=== PATIENT | female | born 1980 | race African-American/Black ===

== ENCOUNTER 2022-10-24 20:11 | Inpatient (IN) | payer MEDICAID, OTHER ==
[~2022-10-24] VITALS: Ht 160 cm; Wt 72.2 kg
[2022-10-24 20:51] LABS: Basophils # (auto) 0.1 10 ^3/uL (0-0.2); Eosinophils # (auto) 0.1 10 ^3/uL (0-0.8); Hemoglobin 10.6 g/dL (12.2-16.2); Monocytes # (auto) 0.3 10 ^3/uL (0-1.3)
[2022-10-24 20:53] LABS: Basophils % (auto) 1.3 % (0.0-2.0); Eosinophils % (auto) 0.8 % (0.0-7.0); Hematocrit 32.7 % (36.0-46.0); Lymphocytes # (auto) 2.8 10 ^3/uL (0.4-5.4); Lymphocytes % (auto) 37.6 % (10.0-50.0); Mean Corpuscular Hemoglobin 26.4 pg (28.0-32.0); Mean Corpuscular Hgb Conc. 32.3 g/dL (32.0-36.0); Mean Corpuscular Volume 81.6 fL (80.0-100.0); Monocytes % (auto) 4.2 % (0.0-12.0); Neutrophils # (auto) 4.1 10 ^3/uL (1.6-8.6); Neutrophils % (auto) 56.1 % (37.0-80.0); Nucleated Red Blood Cells % 0.7 %; White Blood Cell 7.3 10^3/uL (4.4-10.8)
[2022-10-24 21:05] LABS: INR 1.26 (0.9-1.15); Partial Thromboplastin Time 25.6 sec (24.6-33.4)
[2022-10-24 21:06] LABS: Albumin 3.8 g/dL (3.4-5.0); BUN/Creatinine Ratio 16.7; Calcium 8.9 mg/dL (8.5-10.1); Magnesium 2.2 mg/dL (1.6-2.6)
[2022-10-24 21:09] LABS: Bilirubin, Total 1.7 mg/dL (0.2-1.0); Total Protein 7.9 g/dL (6.4-8.2)
[2022-10-24 21:30] LABS: Urine Bacteria NONE SEEN /hpf (None Seen); Urine Blood Negative /uL (Negative); Urine Hyaline Cast MOD /lpf (0 - 2); Urine Mucus FEW (None Seen); Urine Specific Gravity 1.021 (1.001-1.035); Urine WBC 1 /hpf (0 - 5)
[2022-10-24 21:33] LABS: Red Cell Distribution Width 20.3 % (11.8-14.3)
[2022-10-24] MEDS ORDERED: ASPirin 325 MG TAB PO ONE (22:45)
[2022-10-24] MEDS ORDERED: HEPARIN SODIUM (PORCINE) 5000 UNITS/ML 1ML VIAL IV ONE (22:45)
[2022-10-24] MEDS ORDERED: HEPARIN DRIP/D5W 100UNITS/ML 250 ML IV SCH (22:45)
[2022-10-24] MEDS ORDERED: ONDANSETRON HCL 4 MG/2 ML VIAL IV ONE (23:15)
[2022-10-24] MEDS ORDERED: FUROSEMIDE 40 MG/4 ML VIAL IV ONE (23:45)
[2022-10-24] MEDS ORDERED: ONDANSETRON HCL 4 MG/2 ML VIAL IV PRN (23:45)
[2022-10-24] MEDS ORDERED: NITROGLYCERIN 0.4 MG SL TAB SL PRN (23:45)
[2022-10-24] MEDS ORDERED: ACETAMINOPHEN 325 MG TAB PO PRN (23:45)
[2022-10-24] MEDS ORDERED: MORPHINE SULFATE INJ 2 MG/ml SYRG IV PRN (23:45)
[2022-10-24] MEDS ORDERED: AZITHROMYCIN 500MG/ 250ML 250 ML IV ONE (23:45)
[2022-10-24] MEDS ORDERED: DOCUSATE SOD 100 MG CAP PO PRN (23:45)
[2022-10-25] MEDS: MORPHINE SULFATE INJ 2 MG/ml SYRG IV PRN ×2 (00:24→21:48)
[2022-10-25 04:57] LABS: Basophils # (auto) 0.1 10 ^3/uL (0-0.2); Basophils % (auto) 1.3 % (0.0-2.0); Eosinophils # (auto) 0.1 10 ^3/uL (0-0.8); Eosinophils % (auto) 1.5 % (0.0-7.0); Hematocrit 31.4 % (36.0-46.0); Hemoglobin 9.9 g/dL (12.2-16.2); Lymphocytes # (auto) 3.3 10 ^3/uL (0.4-5.4); Lymphocytes % (auto) 46.7 % (10.0-50.0); Mean Corpuscular Hemoglobin 25.7 pg (28.0-32.0); Mean Corpuscular Hgb Conc. 31.5 g/dL (32.0-36.0); Mean Corpuscular Volume 81.6 fL (80.0-100.0); Monocytes # (auto) 0.2 10 ^3/uL (0-1.3); Monocytes % (auto) 3.1 % (0.0-12.0); Neutrophils # (auto) 3.3 10 ^3/uL (1.6-8.6); Neutrophils % (auto) 47.4 % (37.0-80.0); Nucleated Red Blood Cells % 0.7 %; Red Blood Cells 3.85 10^6/uL (4.0-5.20); White Blood Cell 7.1 10^3/uL (4.4-10.8)
[2022-10-25 04:58] LABS: Red Cell Distribution Width 20.2 % (11.8-14.3)
[2022-10-25 05:05] LABS: Albumin 3.4 g/dL (3.4-5.0); Calcium 8.7 mg/dL (8.5-10.1); Potassium 3.9 mmol/L (3.5-5.1)
[2022-10-25 05:08] LABS: Bilirubin, Total 1.7 mg/dL (0.2-1.0); Total Protein 7.1 g/dL (6.4-8.2)
[2022-10-25 05:12] LABS: INR 1.29 (0.9-1.15); Partial Thromboplastin Time 38.2 sec (24.6-33.4)
[2022-10-25] MEDS: SODIUM CHLOR 0.9% PF (SALINE LOCK) 10ML VIAL/SYR IV SCH ×3 (06:09→22:33)
[2022-10-25] MEDS: ASPirin 81 mg TAB PO SCH (10:29)
[2022-10-25] MEDS: CARVEDILOL 3.125 MG TAB PO SCH ×2 (10:29→22:00)
[2022-10-25] MEDS: FAMOTIDINE (10MG/ML) 2ML VL IV SCH ×2 (10:29→22:33)
[2022-10-25] MEDS: HYDROcodone-ACET 5/325MG TAB PO PRN (10:39)
[2022-10-25] MEDS ORDERED: APIXABAN 5 MG TAB PO ONE (11:00)
[2022-10-25] MEDS: FUROSEMIDE 40 MG/4 ML VIAL IV SCH (11:00)
[2022-10-25] MEDS ORDERED: DOBUTamine 1000MCG/ML 250 ML IV SCH (11:00)
[2022-10-25 13:26] LABS: Cholesterol 124 mg/dL (< 200)
[2022-10-25 13:28] LABS: HDL Cholesterol 24 mg/dL (40-59); LDL Cholesterol 98 mg/dL (< 100); Triglycerides 77 mg/dL (< 150)
[2022-10-25] MEDS ORDERED: PHENYLEPHRINE IV 250 ML IV SCH (17:45)
[2022-10-25] MEDS ORDERED: AZITHROMYCIN 500MG/ 250ML 250 ML IV SCH (21:00)
[2022-10-25] MEDS ORDERED: diphenhdrAMINE HCL 50 MG/1 ML VL IV ONE (22:00)
[2022-10-25] MEDS: SACUBITRIL-VALSARTAN 24mg/26mg TAB PO SCH (22:35)
[2022-10-25] MEDS: APIXABAN 5 MG TAB PO SCH (22:56)
[2022-10-26] MEDS: SODIUM CHLOR 0.9% PF (SALINE LOCK) 10ML VIAL/SYR IV SCH ×3 (06:16→21:34)
[2022-10-26] MEDS: EMPAGLIFLOZIN 10 MG TAB PO SCH (06:26)
[2022-10-26 08:04] LABS: Albumin 3.1 g/dL (3.4-5.0); Calcium 8.2 mg/dL (8.5-10.1); Potassium 3.9 mmol/L (3.5-5.1)
[2022-10-26 08:04] LABS: Basophils # (auto) 0.1 10 ^3/uL (0-0.2); Eosinophils # (auto) 0.1 10 ^3/uL (0-0.8); Eosinophils % (auto) 1.8 % (0.0-7.0); Monocytes # (auto) 0.3 10 ^3/uL (0-1.3); Nucleated Red Blood Cells % 0.3 %
[2022-10-26 08:06] LABS: Basophils % (auto) 0.8 % (0.0-2.0); Hematocrit 29.4 % (36.0-46.0); Hemoglobin 9.5 g/dL (12.2-16.2); Mean Corpuscular Hemoglobin 26.2 pg (28.0-32.0); Mean Corpuscular Hgb Conc. 32.2 g/dL (32.0-36.0); Mean Corpuscular Volume 81.4 fL (80.0-100.0); Neutrophils # (auto) 4.4 10 ^3/uL (1.6-8.6); Neutrophils % (auto) 64.4 % (37.0-80.0); Red Blood Cells 3.61 10^6/uL (4.0-5.20); White Blood Cell 6.8 10^3/uL (4.4-10.8)
[2022-10-26 08:07] LABS: BUN/Creatinine Ratio 20.6; Total Protein 6.6 g/dL (6.4-8.2)
[2022-10-26 08:14] LABS: Red Cell Distribution Width 20.2 % (11.8-14.3)
[2022-10-26 08:54] LABS: Alcohol, Urine < 3.0 mg/dL (0-10); Barbiturate Scree,Urine NEGATIVE (NEGATIVE); Cannabinoid Screen, Urine NEGATIVE (NEGATIVE); Cocaine Screen, Urine NEGATIVE (NEGATIVE); Opiate Scree,Urine POSITIVE (NEGATIVE)
[2022-10-26 09:02] LABS: Amphetamine Screen, Urine NEGATIVE (NEGATIVE); Benzodiazephine Screen, Urine NEGATIVE (NEGATIVE); Phencyclidine Screen, Urine NEGATIVE (NEGATIVE)
[2022-10-26] MEDS: HYDROcodone-ACET 5/325MG TAB PO PRN (10:20)
[2022-10-26] MEDS: ASPirin 81 mg TAB PO SCH (10:21)
[2022-10-26] MEDS: CARVEDILOL 3.125 MG TAB PO SCH ×2 (10:21→21:33)
[2022-10-26] MEDS: APIXABAN 5 MG TAB PO SCH ×2 (10:21→21:33)
[2022-10-26] MEDS: SACUBITRIL-VALSARTAN 24mg/26mg TAB PO SCH ×2 (10:21→21:34)
[2022-10-26] MEDS: FUROSEMIDE 40 MG/4 ML VIAL IV SCH (10:22)
[2022-10-26] MEDS: levoFLOXacin 250MG 50 ML IV SCH ×2 (10:23→11:46)
[2022-10-26] MEDS: FAMOTIDINE (10MG/ML) 2ML VL IV SCH (10:24)
[2022-10-26] MEDS: DOBUTamine 1000MCG/ML 250 ML IV SCH (11:15)
[2022-10-26] MEDS ORDERED: BUME1TAB3 PO (12:28)
[2022-10-26] MEDS ORDERED: DAPA1TAB4 PO (12:28)
[2022-10-26] MEDS ORDERED: POTA10TA32 PO (12:28)
[2022-10-26] MEDS ORDERED: APIX5TAB PO (12:28)
[2022-10-26] MEDS ORDERED: METO25TA93 PO (12:28)
[2022-10-26] MEDS ORDERED: HYDR25TA87 PO (12:28)
[2022-10-26] MEDS ORDERED: IVAB1.7T PO (12:28)
[2022-10-26] MEDS ORDERED: METH500T22 PO (12:28)
[2022-10-26 13:00] VITALS: BP 91/68
[2022-10-26] MEDS ORDERED: ACET-1156 PO (16:58)
[2022-10-26] MEDS ORDERED: HYDR-4902 PO (16:58)
[2022-10-26] MEDS ORDERED: ALBUAER3 IN (16:58)
[2022-10-26 17:00] VITALS: BP 82/49
[2022-10-26 22:00] VITALS: BP 102/73
[2022-10-27 05:00] VITALS: BP 104/68
[2022-10-27] MEDS: EMPAGLIFLOZIN 10 MG TAB PO SCH (06:13)
[2022-10-27] MEDS: SODIUM CHLOR 0.9% PF (SALINE LOCK) 10ML VIAL/SYR IV SCH ×3 (06:15→21:29)
[2022-10-27 09:00] VITALS: BP 109/81
[2022-10-27] MEDS: ASPirin 81 mg TAB PO SCH (09:31)
[2022-10-27] MEDS: CARVEDILOL 3.125 MG TAB PO SCH ×2 (09:32→21:28)
[2022-10-27] MEDS: APIXABAN 5 MG TAB PO SCH ×2 (09:35→21:28)
[2022-10-27] MEDS: FAMOTIDINE (10MG/ML) 2ML VL IV SCH (09:36)
[2022-10-27] MEDS: levoFLOXacin 250MG 50 ML IV SCH (09:37)
[2022-10-27] MEDS: FUROSEMIDE 40 MG/4 ML VIAL IV SCH (09:38)
[2022-10-27] MEDS: SACUBITRIL-VALSARTAN 24mg/26mg TAB PO SCH ×2 (10:24→21:27)
[2022-10-27] MEDS: MORPHINE SULFATE INJ 2 MG/ml SYRG IV PRN (11:58)
[2022-10-27] MEDS: DOBUTamine 1000MCG/ML 250 ML IV SCH (12:00)
[2022-10-27 13:00] VITALS: BP_SYST 103; BP_SYST 110; BP_DIAS 77; BP_DIAS 79
[2022-10-27 17:12] VITALS: BP 101/73
[2022-10-27 22:00] VITALS: BP 108/71
[2022-10-28] MEDS: MORPHINE SULFATE INJ 2 MG/ml SYRG IV PRN ×3 (00:54→22:47)
[2022-10-28 05:00] VITALS: BP 110/77
[2022-10-28] MEDS: SODIUM CHLOR 0.9% PF (SALINE LOCK) 10ML VIAL/SYR IV SCH ×3 (05:59→22:00)
[2022-10-28] MEDS: EMPAGLIFLOZIN 10 MG TAB PO SCH (06:00)
[2022-10-28 08:00] VITALS: BP 123/82
[2022-10-28] MEDS: ASPirin 81 mg TAB PO SCH (09:21)
[2022-10-28] MEDS: APIXABAN 5 MG TAB PO SCH ×2 (09:22→22:06)
[2022-10-28] MEDS: CARVEDILOL 3.125 MG TAB PO SCH ×2 (09:22→22:00)
[2022-10-28] MEDS: FAMOTIDINE (10MG/ML) 2ML VL IV SCH (09:22)
[2022-10-28] MEDS: levoFLOXacin 250MG 50 ML IV SCH (09:23)
[2022-10-28] MEDS: SACUBITRIL-VALSARTAN 24mg/26mg TAB PO SCH ×2 (09:26→22:00)
[2022-10-28] MEDS: FUROSEMIDE 40 MG/4 ML VIAL IV SCH (10:00)
[2022-10-28 12:00] VITALS: BP 100/63
[2022-10-28 16:00] VITALS: BP 101/57
[2022-10-28 20:00] VITALS: BP 102/71
[2022-10-28 22:00] VITALS: BP 102/71
[2022-10-29 05:00] VITALS: BP 99/77
[2022-10-29] MEDS: EMPAGLIFLOZIN 10 MG TAB PO SCH (06:28)
[2022-10-29] MEDS: SODIUM CHLOR 0.9% PF (SALINE LOCK) 10ML VIAL/SYR IV SCH (06:29)
[2022-10-29 09:00] VITALS: BP 104/74
[2022-10-29] MEDS: levoFLOXacin 250MG 50 ML IV SCH (09:16)
[2022-10-29] MEDS: ASPirin 81 mg TAB PO SCH (09:17)
[2022-10-29] MEDS: CARVEDILOL 3.125 MG TAB PO SCH (09:18)
[2022-10-29] MEDS: APIXABAN 5 MG TAB PO SCH (09:19)
[2022-10-29] MEDS: MORPHINE SULFATE INJ 2 MG/ml SYRG IV PRN (09:42)
[2022-10-29] MEDS: FUROSEMIDE 40 MG/4 ML VIAL IV SCH (09:46)
[2022-10-29] MEDS ORDERED: SACUBITRIL-VALSARTAN 24mg/26mg TAB PO SCH (10:00)
[2022-10-29 12:50] VITALS: BP 99/69
== END 2022-10-29 13:00 | DRG 194 ==
LOC: ER 20:11 → TELE 23:43 → TELE-CENTR 10-26 11:00
PROVIDERS: ADMIT Nurse Practitioner Family; ATTEND Family Medicine
DX: I50.43 Acute on chronic combined systolic (congestive) and diastolic (congestive) heart failure (principal); I21.A1 Myocardial infarction type 2; N17.9 Acute kidney failure, unspecified; J18.9 Pneumonia, unspecified organism; D63.8 Anemia in other chronic diseases classified elsewhere; I95.9 Hypotension, unspecified; I42.7 Cardiomyopathy due to drug and external agent; Z79.01 Long term (current) use of anticoagulants; F17.200 Nicotine dependence, unspecified, uncomplicated; Z20.822 Contact with and (suspected) exposure to COVID-19; F41.9 Anxiety disorder, unspecified; R73.03 Prediabetes; T50.995A Adverse effect of other drugs, medicaments and biological substances, initial encounter; R09.02 Hypoxemia; Z86.711 Personal history of pulmonary embolism; Z71.6 Tobacco abuse counseling; Z88.0 Allergy status to penicillin; Y92.89 Other specified places as the place of occurrence of the external cause
CPT/HCPCS: 36415; 71045; 80053; 80061; 80307; 81001; 83036; 83735; 83880; 84443; 84484; 85025; 85610; 85730; 87426; 93005; 93306; 96365; 96375; 97163; G0378; J2405; J3490

== ENCOUNTER 2023-04-26 16:00 | Inpatient (IN) | payer MEDICAID ==
[~2023-04-26] VITALS: Ht 160 cm; Wt 62.2 kg
[~2023-04-26 16:00] MED LIST: ACET-1881 PO; ALBUAER3 IN; APIX5TAB PO; BUME1TAB3 PO; DAPA1TAB4 PO; HYDR-4902 PO; HYDR25TA87 PO; IVAB1.7T PO; METH-1181 PO; METO25TA93 PO; POTA-228 PO
[2023-04-26] MEDS ORDERED: MORPHINE SULFATE INJ 2 MG/ml SYRG IV ONE (16:45)
[2023-04-26] MEDS ORDERED: ONDANSETRON HCL 4 MG/2 ML VIAL IV ONE (16:45)
[2023-04-26 16:53] VITALS: PULSE 107; RESP 41; O2SAT 100
[2023-04-26 17:14] LABS: Basophils # (auto) 0.1 10 ^3/uL (0-0.2); Basophils % (auto) 1.1 % (0.0-2.0); Eosinophils # (auto) 0 10 ^3/uL (0-0.8); Eosinophils % (auto) 0.2 % (0.0-7.0); Hematocrit 34.6 % (36.0-46.0); Hemoglobin 9.8 g/dL (12.2-16.2); Lymphocytes # (auto) 2.1 10 ^3/uL (0.4-5.4); Lymphocytes % (auto) 27.3 % (10.0-50.0); Mean Corpuscular Hemoglobin 25.2 pg (28.0-32.0); Mean Corpuscular Hgb Conc. 28.5 g/dL (32.0-36.0); Mean Corpuscular Volume 88.5 fL (80.0-100.0); Monocytes # (auto) 0.5 10 ^3/uL (0-1.3); Monocytes % (auto) 5.9 % (0.0-12.0); Neutrophils % (auto) 65.5 % (37.0-80.0); Nucleated Red Blood Cells % 1.2 %; Red Blood Cells 3.91 10^6/uL (4.0-5.20); White Blood Cell 7.7 10^3/uL (4.4-10.8)
[2023-04-26 17:16] LABS: Red Cell Distribution Width 23.3 % (11.8-14.3)
[2023-04-26 17:27] LABS: Albumin 3.2 g/dL (3.4-5.0); Anion Gap 20 (5-15); BUN/Creatinine Ratio 23.7 (10.0-20.0); Blood Urea Nitrogen 40 mg/dL (7-18); Calcium 8.3 mg/dL (8.5-10.1); Carbon Dioxide 15 mmol/L (21-32); Chloride 100 mmol/L (98-107); GFR African American 42 mL/min; GFR Non-African American 35 mL/min; Glucose 96 mg/dL (74-106); Potassium 4.1 mmol/L (3.5-5.1); Sodium 135 mmol/L (136-145)
[2023-04-26 17:29] LABS: Alanine Aminotransferase 19 U/L (13-56); Alkaline Phosphatase 125 U/L (45-117); Aspartate Aminotransferase 38 U/L (15-37); Bilirubin, Total 3.2 mg/dL (0.2-1.0); Total Protein 7.9 g/dL (6.4-8.2)
[2023-04-26 18:15] LABS: Urine Bacteria FEW /hpf (None Seen); Urine Blood Negative /uL (Negative); Urine Clarity CLOUDY (Clear); Urine Color Yellow (Yellow); Urine Hyaline Cast MOD /lpf (0 - 2); Urine Mucus FEW (None Seen); Urine Protein, UAD 1+ (Negative); Urine Specific Gravity 1.018 (1.001-1.035); Urine WBC 16 /hpf (0 - 5)
[2023-04-26 18:43] LABS: Anisocytosis Slight; Hypochromia Moderate; Large Platelets FEW; Platelet Estimate Adequate
[2023-04-26] MEDS ORDERED: NITROFURANTOIN 100 mg CAP PO ONE (19:15)
[2023-04-26] MEDS ORDERED: FUROSEMIDE 40 MG/4 ML VIAL IV ONE (19:15)
[2023-04-26 19:18] LABS: Lactic Acid w/Reflex 7.6 mmol/L (0.4-2.0)
[2023-04-26 19:20] LABS: INR 1.78 (0.9-1.15); Partial Thromboplastin Time 24.2 SEC (24.5-34.5)
[2023-04-26 19:30] VITALS: PULSE 103; RESP 27; O2SAT 100
[2023-04-26] MEDS ORDERED: IOHEXOL 350 MG/ML 100ML IJ ONE (20:13)
[2023-04-26] MEDS ORDERED: ACETAMINOPHEN 325 MG TAB PO PRN (21:00)
[2023-04-26] MEDS ORDERED: DOCUSATE SOD 100 MG CAP PO PRN (21:00)
[2023-04-26] MEDS ORDERED: DEXTROSE (50%) 50ML SYRG IV PRN (21:00)
[2023-04-26 21:03] VITALS: PULSE 104; RESP 37; O2SAT 91
[2023-04-26] MEDS: HYDROcodone-ACET 5/325MG TAB PO PRN (21:38)
[2023-04-26] MEDS: SODIUM CHLOR 0.9% PF (SALINE LOCK) 10ML VIAL/SYR IV SCH (22:08)
[2023-04-26] MEDS: ACCU-CHEK COMFORT CURVE STRIP VI SCH (22:38)
[2023-04-26] MEDS: APIXABAN 5 MG TAB PO SCH (22:47)
[2023-04-26] MEDS: FAMOTIDINE (10MG/ML) 2ML VL IV SCH (22:47)
[2023-04-26] MEDS: CARVEDILOL 3.125 MG TAB PO SCH ×2 (22:48→22:55)
[2023-04-26] MEDS: InsuLIN REG 1unit/0.01ml Soln (100units/ml) SC SCH (22:54)
[2023-04-26] MEDS: NITROFURANTOIN 100 mg CAP PO SCH (23:24)
[2023-04-26] MEDS ORDERED: MORPHINE SULFATE INJ 2 MG/ml SYRG IV PRN ×2 (23:30→23:45)
[2023-04-26] MEDS ORDERED: NITROGLYCERIN 0.4 MG SL TAB SL PRN (23:45)
[2023-04-26] MEDS: LACTULOSE 20Gm/30ML SOLN PO SCH (23:48)
[2023-04-27] MEDS: MORPHINE SULFATE INJ 2 MG/ml SYRG IV PRN ×4 (00:30→21:17)
[2023-04-27 02:11] LABS: Lactic Acid w/Reflex 2.5 mmol/L (0.4-2.0)
[2023-04-27] MEDS: SODIUM CHLOR 0.9% PF (SALINE LOCK) 10ML VIAL/SYR IV SCH ×3 (06:01→22:37)
[2023-04-27] MEDS: DOXYCYCLINE 100MG/250ML 250 ML IV SCH ×2 (06:01→18:15)
[2023-04-27] MEDS: LACTULOSE 20Gm/30ML SOLN PO SCH ×4 (06:01→22:48)
[2023-04-27 06:10] LABS: Basophils # (auto) 0.1 10 ^3/uL (0-0.2); Eosinophils # (auto) 0 10 ^3/uL (0-0.8); Hemoglobin 9.2 g/dL (12.2-16.2); Monocytes # (auto) 0.4 10 ^3/uL (0-1.3); Nucleated Red Blood Cells % 1.5 %
[2023-04-27 06:12] LABS: Eosinophils % (auto) 0.5 % (0.0-7.0); Hematocrit 29.8 % (36.0-46.0); Lymphocytes # (auto) 1.8 10 ^3/uL (0.4-5.4); Lymphocytes % (auto) 26.4 % (10.0-50.0); Mean Corpuscular Hemoglobin 24.6 pg (28.0-32.0); Mean Corpuscular Hgb Conc. 30.8 g/dL (32.0-36.0); Mean Corpuscular Volume 79.7 fL (80.0-100.0); Monocytes % (auto) 5.2 % (0.0-12.0); Neutrophils # (auto) 4.7 10 ^3/uL (1.6-8.6); Neutrophils % (auto) 66.9 % (37.0-80.0); Red Blood Cells 3.73 10^6/uL (4.0-5.20)
[2023-04-27 06:14] LABS: Red Cell Distribution Width 22.1 % (11.8-14.3)
[2023-04-27 06:15] LABS: Potassium 3.8 mmol/L (3.5-5.1)
[2023-04-27 06:21] LABS: Albumin 3.3 g/dL (3.4-5.0); BUN/Creatinine Ratio 25.1 (10.0-20.0); Bilirubin, Total 3.4 mg/dL (0.2-1.0); Calcium 8.6 mg/dL (8.5-10.1); Total Protein 7.7 g/dL (6.4-8.2)
[2023-04-27] MEDS: ACCU-CHEK COMFORT CURVE STRIP VI SCH ×4 (06:51→22:36)
[2023-04-27] MEDS: InsuLIN REG 1unit/0.01ml Soln (100units/ml) SC SCH ×4 (06:54→22:50)
[2023-04-27] MEDS: HYDROcodone-ACET 5/325MG TAB PO PRN (07:51)
[2023-04-27 08:00] VITALS: PULSE 96; RESP 18; O2SAT 96
[2023-04-27 08:20] LABS: Anisocytosis Slight; Hypochromia Slight; Platelet Estimate Adequate
[2023-04-27 08:23] LABS: Tear Drop Cells FEW
[2023-04-27 08:25] LABS: Stomatocytes Moderate
[2023-04-27] MEDS: CARVEDILOL 3.125 MG TAB PO SCH ×2 (10:00→22:45)
[2023-04-27] MEDS ORDERED: FUROSEMIDE 40 MG/4 ML VIAL IV SCH ×2 (10:00)
[2023-04-27] MEDS: APIXABAN 5 MG TAB PO SCH ×2 (10:24→22:38)
[2023-04-27] MEDS: FAMOTIDINE (10MG/ML) 2ML VL IV SCH ×2 (10:24→22:37)
[2023-04-27] MEDS: NITROFURANTOIN 100 mg CAP PO SCH ×2 (10:24→22:38)
[2023-04-27] MEDS: B-COMPLEX W/ C & FOLIC ACID(NEPHROVITE TAB) PO SCH (10:24)
[2023-04-27] MEDS: DOBUTamine 1000MCG/ML 250 ML IV SCH (10:41)
[2023-04-27] MEDS ORDERED: EMPA1TAB PO (11:04)
[2023-04-27] MEDS ORDERED: SACU1TAB PO (11:04)
[2023-04-27] MEDS ORDERED: CARV3.1240 PO (11:04)
[2023-04-27] MEDS ORDERED: metOLazone 5 MG TAB PO ONE ×2 (11:45→13:15)
[2023-04-27] MEDS: ONDANSETRON HCL 4 MG/2 ML VIAL IV PRN ×2 (11:46→21:13)
[2023-04-27] MEDS: FUROSEMIDE 40 MG/4 ML VIAL IV SCH ×2 (13:14→22:45)
[2023-04-27 14:10] LABS: Cholesterol 71 mg/dL (< 200); HDL Cholesterol 13 mg/dL (40-59); LDL Cholesterol 62 mg/dL (< 100); Triglycerides 76 mg/dL (< 150)
[2023-04-27 16:55] LABS: Alcohol, Urine < 3.0 mg/dL (0-10); Amphetamine Screen, Urine NEGATIVE (NEGATIVE); Barbiturate Scree,Urine NEGATIVE (NEGATIVE); Benzodiazephine Screen, Urine NEGATIVE (NEGATIVE); Cannabinoid Screen, Urine NEGATIVE (NEGATIVE); Cocaine Screen, Urine NEGATIVE (NEGATIVE); Opiate Scree,Urine POSITIVE (NEGATIVE)
[2023-04-27 16:56] LABS: Urine Protein/Creatinine Ratio 0.63
[2023-04-27 17:03] LABS: Phencyclidine Screen, Urine NEGATIVE (NEGATIVE)
[2023-04-27 19:40] VITALS: PULSE 92; RESP 18; O2SAT 98
[2023-04-27] MEDS ORDERED: SPIR25TA8 PO (22:08)
[2023-04-27] MEDS ORDERED: ONDA-188 PO (22:08)
[2023-04-27] MEDS ORDERED: FAMO-12 PO (22:08)
[2023-04-27 22:09] VITALS: PULSE 98; RESP 18; O2SAT 99
[2023-04-27] MEDS ORDERED: HYDR-4798 PO (22:09)
[2023-04-28] VITALS (7 sets, daily range): BP systolic 93–103; BP diastolic 61–78; PULSE 78–95; RESP 14–20; TEMP 97.5–98.6; O2SAT 98–100
[2023-04-28] MEDS: MORPHINE SULFATE INJ 2 MG/ml SYRG IV PRN ×2 (01:38→22:36)
[2023-04-28] MEDS: ONDANSETRON HCL 4 MG/2 ML VIAL IV PRN (01:38)
[2023-04-28] MEDS: DOXYCYCLINE 100MG/250ML 250 ML IV SCH ×2 (05:57→18:25)
[2023-04-28] MEDS: ACCU-CHEK COMFORT CURVE STRIP VI SCH (05:58)
[2023-04-28] MEDS: SODIUM CHLOR 0.9% PF (SALINE LOCK) 10ML VIAL/SYR IV SCH ×3 (05:58→22:14)
[2023-04-28] MEDS: LACTULOSE 20Gm/30ML SOLN PO SCH (05:58)
[2023-04-28] MEDS: InsuLIN REG 1unit/0.01ml Soln (100units/ml) SC SCH (06:21)
[2023-04-28 08:17] LABS: Basophils # (auto) 0.1 10 ^3/uL (0-0.2); Eosinophils # (auto) 0.1 10 ^3/uL (0-0.8)
[2023-04-28 08:19] LABS: Basophils % (auto) 1.2 % (0.0-2.0); Eosinophils % (auto) 0.9 % (0.0-7.0); Hematocrit 26.2 % (36.0-46.0); Hemoglobin 8.2 g/dL (12.2-16.2); Lymphocytes # (auto) 1.2 10 ^3/uL (0.4-5.4); Mean Corpuscular Hemoglobin 24.9 pg (28.0-32.0); Mean Corpuscular Hgb Conc. 31.1 g/dL (32.0-36.0); Mean Corpuscular Volume 79.9 fL (80.0-100.0); Monocytes # (auto) 0.4 10 ^3/uL (0-1.3); Monocytes % (auto) 5.4 % (0.0-12.0); Neutrophils % (auto) 74.5 % (37.0-80.0); Nucleated Red Blood Cells % 0.6 %; Red Blood Cells 3.28 10^6/uL (4.0-5.20); White Blood Cell 6.7 10^3/uL (4.4-10.8)
[2023-04-28 08:26] LABS: Red Cell Distribution Width 22.1 % (11.8-14.3)
[2023-04-28 08:41] LABS: Albumin 2.9 g/dL (3.4-5.0); Calcium 8.4 mg/dL (8.5-10.1)
[2023-04-28 08:45] LABS: BUN/Creatinine Ratio 23.8 (10.0-20.0); Bilirubin, Total 2.4 mg/dL (0.2-1.0)
[2023-04-28] MEDS ORDERED: POTASSIUM CHL 20 Meq TABLET PO ONE ×2 (09:15→13:15)
[2023-04-28] MEDS: NITROFURANTOIN 100 mg CAP PO SCH (09:33)
[2023-04-28] MEDS: APIXABAN 5 MG TAB PO SCH (09:34)
[2023-04-28] MEDS: PANTOPRAZOLE 40 MG/10 ML VIAL INJ IV SCH (09:34)
[2023-04-28] MEDS: B-COMPLEX W/ C & FOLIC ACID(NEPHROVITE TAB) PO SCH (09:34)
[2023-04-28] MEDS: FAMOTIDINE (10MG/ML) 2ML VL IV SCH (09:34)
[2023-04-28] MEDS: DOBUTamine 1000MCG/ML 250 ML IV SCH (09:42)
[2023-04-28] MEDS: CARVEDILOL 3.125 MG TAB PO SCH ×2 (10:00→22:12)
[2023-04-28] MEDS: FUROSEMIDE 40 MG/4 ML VIAL IV SCH ×2 (11:14→18:28)
[2023-04-28] MEDS: HYDROcodone-ACET 5/325MG TAB PO PRN (11:14)
[2023-04-28] MEDS ORDERED: SPIRONOLACTONE 25 MG TAB PO ONE (11:30)
[2023-04-28] MEDS ORDERED: metOLazone 5 MG TAB PO ONE (11:30)
[2023-04-28] MEDS ORDERED: POTASSIUM EFFERVESENT TAB 25 MEQ PO ONE (19:00)
[2023-04-29] VITALS (8 sets, daily range): BP systolic 91–147; BP diastolic 53–77; PULSE 77–100; RESP 14–21; TEMP 97.1–99; O2SAT 95–100
[2023-04-29] MEDS: MORPHINE SULFATE INJ 2 MG/ml SYRG IV PRN ×2 (03:44→23:03)
[2023-04-29] MEDS: FUROSEMIDE 40 MG/4 ML VIAL IV SCH ×2 (05:19→18:05)
[2023-04-29] MEDS: SODIUM CHLOR 0.9% PF (SALINE LOCK) 10ML VIAL/SYR IV SCH ×3 (05:19→23:04)
[2023-04-29] MEDS: DOXYCYCLINE 100MG/250ML 250 ML IV SCH ×2 (05:20→18:05)
[2023-04-29 06:32] LABS: Eosinophils # (auto) 0.1 10 ^3/uL (0-0.8); Eosinophils % (auto) 1.2 % (0.0-7.0); Hemoglobin 8.5 g/dL (12.2-16.2); Lymphocytes # (auto) 1.2 10 ^3/uL (0.4-5.4); White Blood Cell 6.2 10^3/uL (4.4-10.8)
[2023-04-29 06:33] LABS: Basophils # (auto) 0.1 10 ^3/uL (0-0.2); Basophils % (auto) 1.2 % (0.0-2.0); Hematocrit 26.8 % (36.0-46.0); Lymphocytes % (auto) 19.5 % (10.0-50.0); Mean Corpuscular Hemoglobin 25.2 pg (28.0-32.0); Mean Corpuscular Hgb Conc. 31.6 g/dL (32.0-36.0); Mean Corpuscular Volume 79.8 fL (80.0-100.0); Monocytes # (auto) 0.3 10 ^3/uL (0-1.3); Monocytes % (auto) 5.3 % (0.0-12.0); Neutrophils # (auto) 4.5 10 ^3/uL (1.6-8.6); Neutrophils % (auto) 72.8 % (37.0-80.0); Nucleated Red Blood Cells % 0.7 %; Red Blood Cells 3.36 10^6/uL (4.0-5.20)
[2023-04-29 07:32] LABS: Red Cell Distribution Width 22.2 % (11.8-14.3)
[2023-04-29 08:44] LABS: Potassium 3.5 mmol/L (3.5-5.1)
[2023-04-29 09:01] LABS: BUN/Creatinine Ratio 24.1 (10.0-20.0); Bilirubin, Total 2.2 mg/dL (0.2-1.0); Calcium 7.9 mg/dL (8.7-10.4); Total Protein 6.9 g/dL (6.4-8.2)
[2023-04-29] MEDS ORDERED: POTASSIUM EFFERVESENT TAB 25 MEQ PO ONE (09:45)
[2023-04-29] MEDS: PANTOPRAZOLE 40 MG/10 ML VIAL INJ IV SCH (09:59)
[2023-04-29] MEDS: CARVEDILOL 3.125 MG TAB PO SCH ×2 (09:59→23:04)
[2023-04-29] MEDS: B-COMPLEX W/ C & FOLIC ACID(NEPHROVITE TAB) PO SCH (09:59)
[2023-04-29] MEDS: HYDROcodone-ACET 5/325MG TAB PO PRN (10:13)
[2023-04-29] MEDS ORDERED: SPIRONOLACTONE 25 MG TAB PO ONE (10:45)
[2023-04-30] VITALS (7 sets, daily range): BP systolic 80–114; BP diastolic 53–65; PULSE 81–90; RESP 16–19; TEMP 97.3–97.8; O2SAT 96–100
[2023-04-30] MEDS: MORPHINE SULFATE INJ 2 MG/ml SYRG IV PRN (03:34)
[2023-04-30] MEDS: DOXYCYCLINE 100MG/250ML 250 ML IV SCH (05:27)
[2023-04-30] MEDS: FUROSEMIDE 40 MG/4 ML VIAL IV SCH (05:28)
[2023-04-30] MEDS: SODIUM CHLOR 0.9% PF (SALINE LOCK) 10ML VIAL/SYR IV SCH ×3 (05:29→22:20)
[2023-04-30 05:56] LABS: Mean Corpuscular Hgb Conc. 31.3 g/dL (32.0-36.0); Nucleated Red Blood Cells % 1.1 %
[2023-04-30 05:59] LABS: Basophils # (auto) 0.1 10 ^3/uL (0-0.2); Basophils % (auto) 1.1 % (0.0-2.0); Eosinophils # (auto) 0 10 ^3/uL (0-0.8); Eosinophils % (auto) 0.8 % (0.0-7.0); Hemoglobin 9.1 g/dL (12.2-16.2); Lymphocytes # (auto) 1.4 10 ^3/uL (0.4-5.4); Lymphocytes % (auto) 22.4 % (10.0-50.0); Mean Corpuscular Hemoglobin 24.8 pg (28.0-32.0); Mean Corpuscular Volume 79.1 fL (80.0-100.0); Monocytes # (auto) 0.3 10 ^3/uL (0-1.3); Monocytes % (auto) 5.6 % (0.0-12.0); Neutrophils # (auto) 4.2 10 ^3/uL (1.6-8.6); Neutrophils % (auto) 70.1 % (37.0-80.0); Red Blood Cells 3.67 10^6/uL (4.0-5.20); White Blood Cell 6.1 10^3/uL (4.4-10.8)
[2023-04-30 06:06] LABS: Red Cell Distribution Width 22.4 % (11.8-14.3)
[2023-04-30 06:28] LABS: Alanine Aminotransferase 15 U/L (7-40); Albumin 3.5 g/dL (3.2-4.8); Alkaline Phosphatase 129 U/L (46-116); Anion Gap 11.8 (5-15); Aspartate Aminotransferase 28 U/L (13-40); BUN/Creatinine Ratio 25.6 (10.0-20.0); Blood Urea Nitrogen 42 mg/dL (9-23); Calcium 8.8 mg/dL (8.7-10.4); Carbon Dioxide 28.2 mmol/L (20-30); Chloride 92 mmol/L (98-107); Glucose 93 mg/dL (74-106); Magnesium 1.9 mg/dL (1.6-2.6); Potassium 3.6 mmol/L (3.5-5.1); Sodium 132 mmol/L (136-145)
[2023-04-30 06:29] LABS: Bilirubin, Total 2.8 mg/dL (0.2-1.0); Total Protein 6.9 g/dL (5.7-8.2)
[2023-04-30] MEDS ORDERED: POTASSIUM CHL 20 Meq TABLET PO ONE (07:45)
[2023-04-30 07:50] LABS: INR 1.7 (0.9-1.15); Partial Thromboplastin Time 32.7 SEC (24.5-34.5); Prothrombin Time 17.2 sec (9.3-11.8)
[2023-04-30] MEDS: CARVEDILOL 3.125 MG TAB PO SCH (11:44)
[2023-04-30] MEDS: SPIRONOLACTONE 25 MG TAB PO SCH (11:44)
[2023-04-30] MEDS: B-COMPLEX W/ C & FOLIC ACID(NEPHROVITE TAB) PO SCH (11:44)
[2023-04-30] MEDS ORDERED: ALBUMIN 25% 50 ML IV ONE ×2 (11:45→20:00)
[2023-04-30] MEDS: HYDROcodone-ACET 5/325MG TAB PO PRN ×2 (12:24→19:05)
[2023-04-30] MEDS: DOXYCYCLINE 100 MG TAB/CAP PO SCH (22:33)
[2023-05-01] VITALS (7 sets, daily range): BP systolic 91–97; BP diastolic 65–73; PULSE 80–94; RESP 16–26; TEMP 97.5–97.8; O2SAT 94–98
[2023-05-01] MEDS: HYDROcodone-ACET 5/325MG TAB PO PRN ×3 (00:17→18:56)
[2023-05-01] MEDS: SODIUM CHLOR 0.9% PF (SALINE LOCK) 10ML VIAL/SYR IV SCH ×3 (06:00→21:36)
[2023-05-01] MEDS ORDERED: FUROSEMIDE 40 MG/4 ML VIAL IV SCH (07:00)
[2023-05-01 08:48] LABS: Basophils # (auto) 0.1 10 ^3/uL (0-0.2); Eosinophils # (auto) 0.1 10 ^3/uL (0-0.8); Hemoglobin 9.2 g/dL (12.2-16.2); Monocytes # (auto) 0.4 10 ^3/uL (0-1.3); Neutrophils # (auto) 3.7 10 ^3/uL (1.6-8.6)
[2023-05-01 08:50] LABS: Eosinophils % (auto) 1.2 % (0.0-7.0); Hematocrit 29.7 % (36.0-46.0); Lymphocytes # (auto) 1.6 10 ^3/uL (0.4-5.4); Lymphocytes % (auto) 27.5 % (10.0-50.0); Mean Corpuscular Hemoglobin 24.6 pg (28.0-32.0); Mean Corpuscular Hgb Conc. 30.9 g/dL (32.0-36.0); Mean Corpuscular Volume 79.6 fL (80.0-100.0); Monocytes % (auto) 7.4 % (0.0-12.0); Neutrophils % (auto) 62.9 % (37.0-80.0); Red Blood Cells 3.73 10^6/uL (4.0-5.20); Red Cell Distribution Width 22.6 % (11.8-14.3); White Blood Cell 5.9 10^3/uL (4.4-10.8)
[2023-05-01 09:37] LABS: Lactic Acid w/Reflex 2.8 mmol/L (0.4-2.0)
[2023-05-01 09:54] LABS: Alanine Aminotransferase 12 U/L (7-40); Albumin 3.6 g/dL (3.2-4.8); Alkaline Phosphatase 133 U/L (46-116); Anion Gap 11.4 (5-15); Aspartate Aminotransferase 25 U/L (13-40); BUN/Creatinine Ratio 21.3 (10.0-20.0); Bilirubin, Total 2.6 mg/dL (0.2-1.0); Blood Urea Nitrogen 37 mg/dL (9-23); Calcium 8.8 mg/dL (8.5-10.1); Carbon Dioxide 26.6 mmol/L (20-30); Chloride 93 mmol/L (98-107); Glucose 106 mg/dL (74-106); Magnesium 2.1 mg/dL (1.6-2.6); Potassium 3.7 mmol/L (3.5-5.1); Sodium 131 mmol/L (136-145); Total Protein 7.3 g/dL (5.7-8.2)
[2023-05-01] MEDS: SPIRONOLACTONE 25 MG TAB PO SCH (10:00)
[2023-05-01] MEDS: B-COMPLEX W/ C & FOLIC ACID(NEPHROVITE TAB) PO SCH (11:09)
[2023-05-01] MEDS: PANTOPRAZOLE 40 MG TAB PO SCH (11:09)
[2023-05-01] MEDS: DOXYCYCLINE 100 MG TAB/CAP PO SCH ×2 (11:09→21:36)
[2023-05-01] MEDS ORDERED: ALBUMIN 25% 50 ML IV ONE (15:00)
[2023-05-01 20:40] LABS: Body Fluid Polymorphonuclear 12 % (0-25); Body Fluid Red Blood Cells 2320 CUMM (0-2000); Body Fluid White Blood Cells 200 CUMM (0-200)
[2023-05-02] VITALS (9 sets, daily range): BP systolic 80–105; BP diastolic 57–70; PULSE 78–94; RESP 18–26; TEMP 97.4–97.9; O2SAT 93–100
[2023-05-02] MEDS: HYDROcodone-ACET 5/325MG TAB PO PRN ×3 (05:32→14:23)
[2023-05-02] MEDS: SODIUM CHLOR 0.9% PF (SALINE LOCK) 10ML VIAL/SYR IV SCH ×3 (05:58→22:09)
[2023-05-02 06:01] LABS: Chloride 93 mmol/L (98-107); Potassium 3.3 mmol/L (3.5-5.1); Sodium 132 mmol/L (136-145)
[2023-05-02 06:02] LABS: Calcium 8.8 mg/dL (8.7-10.4)
[2023-05-02 06:07] LABS: BUN/Creatinine Ratio 24.7 (10.0-20.0); Blood Urea Nitrogen 43 mg/dL (9-23); Glucose 95 mg/dL (74-106)
[2023-05-02] MEDS ORDERED: POTASSIUM EFFERVESENT TAB 25 MEQ PO ONE (07:00)
[2023-05-02] MEDS ORDERED: FUROSEMIDE 40 MG TAB PO SCH (10:00)
[2023-05-02] MEDS: B-COMPLEX W/ C & FOLIC ACID(NEPHROVITE TAB) PO SCH (11:12)
[2023-05-02] MEDS: DOXYCYCLINE 100 MG TAB/CAP PO SCH ×2 (11:12→22:07)
[2023-05-02] MEDS: PANTOPRAZOLE 40 MG TAB PO SCH (11:12)
[2023-05-02] MEDS: SPIRONOLACTONE 25 MG TAB PO SCH (14:23)
[2023-05-03 10:06] LABS: Protein, Body Fluid 3.9 g/dL (.)
== END 2023-05-02 22:30 | disposition hospice, home (50) ==
LOC: ER 16:00 → EDBD 16:00 → TELE 23:46 → TELE-WESTW 04-27 21:22
PROVIDERS: ADMIT Internal Medicine; ATTEND Student in an Organized Health Care Education/Training Program
PROC: 0W9G3ZZ Drainage of Peritoneal Cavity, Percutaneous Approach (ICD-10-PCS; principal; 2023-05-01)
DX: K74.60 Unspecified cirrhosis of liver (principal); N17.0 Acute kidney failure with tubular necrosis; J96.21 Acute and chronic respiratory failure with hypoxia; K76.7 Hepatorenal syndrome; E44.0 Moderate protein-calorie malnutrition; I50.23 Acute on chronic systolic (congestive) heart failure; D63.1 Anemia in chronic kidney disease; E87.1 Hypo-osmolality and hyponatremia; J15.6 Pneumonia due to other Gram-negative bacteria; I13.2 Hypertensive heart and chronic kidney disease with heart failure and with stage 5 chronic kidney disease, or end stage renal disease; E87.20 Acidosis, unspecified; I42.7 Cardiomyopathy due to drug and external agent; K72.90 Hepatic failure, unspecified without coma; N18.6 End stage renal disease; R18.8 Other ascites; I27.29 Other secondary pulmonary hypertension; R62.7 Adult failure to thrive; F32.A Depression, unspecified; I27.20 Pulmonary hypertension, unspecified; J98.11 Atelectasis; I50.82 Biventricular heart failure; E87.6 Hypokalemia; N39.0 Urinary tract infection, site not specified; T50.905A Adverse effect of unspecified drugs, medicaments and biological substances, initial encounter; F41.9 Anxiety disorder, unspecified; R79.89 Other specified abnormal findings of blood chemistry; E11.22 Type 2 diabetes mellitus with diabetic chronic kidney disease; Z68.27 Body mass index [BMI] 27.0-27.9, adult; Z79.4 Long term (current) use of insulin; Z79.899 Other long term (current) drug therapy; Z82.49 Family history of ischemic heart disease and other diseases of the circulatory system; Z83.3 Family history of diabetes mellitus; Z86.711 Personal history of pulmonary embolism; Z88.0 Allergy status to penicillin; Y92.9 Unspecified place or not applicable
CPT/HCPCS: 36415; 71045; 71275; 74176; 76705; 76775; 76942; 80048; 80053; 80061; 80307; 81001; 82140; 82570; 82962; 83036; 83605; 83735; 83880; 83986; 84132; 84156; 84300; 84443; 84484; 84702; 85025; 85379; 85610; 85730; 86803; 86850; 86900; 86901; 87040; 87086; 87205; 89051; 93005; 93306; 93970; 96374; 96375; 97163; C9113; G0378; J1815; J2405; J3490

== ENCOUNTER 2023-06-11 19:08 | Inpatient (IN) | payer MEDICAID ==
[~2023-06-11] VITALS: Ht 172.7 cm; Wt 63.3 kg
[~2023-06-11 19:08] MED LIST changes: +CARV3.1240 PO; +EMPA1TAB PO; +FAMO-12 PO; +HYDR-4798 PO; +ONDA-188 PO; +SACU1TAB PO; +SPIR25TA8 PO
[2023-06-11 20:03] VITALS: PULSE 94; RESP 14; O2SAT 95
[2023-06-11 20:51] LABS: Basophils # (auto) 0.1 10 ^3/uL (0-0.2); Eosinophils # (auto) 0 10 ^3/uL (0-0.8); Eosinophils % (auto) 0.4 % (0.0-7.0); Lymphocytes # (auto) 1.4 10 ^3/uL (0.4-5.4); Monocytes # (auto) 0.3 10 ^3/uL (0-1.3); Monocytes % (auto) 5.7 % (0.0-12.0); Neutrophils # (auto) 4.2 10 ^3/uL (1.6-8.6)
[2023-06-11 20:53] LABS: Basophils % (auto) 1.4 % (0.0-2.0); Hematocrit 33.8 % (36.0-46.0); Hemoglobin 10.2 g/dL (12.2-16.2); Lymphocytes % (auto) 22.8 % (10.0-50.0); Mean Corpuscular Hemoglobin 24.7 pg (28.0-32.0); Mean Corpuscular Hgb Conc. 30.1 g/dL (32.0-36.0); Neutrophils % (auto) 69.7 % (37.0-80.0); Red Blood Cells 4.12 10^6/uL (4.0-5.20)
[2023-06-11 21:05] LABS: INR 1.61 (0.9-1.15); Prothrombin Time 16.4 sec (9.3-11.8)
[2023-06-11 21:15] LABS: Alanine Aminotransferase 23 U/L (7-40); Albumin 3.9 g/dL (3.2-4.8); Alkaline Phosphatase 164 U/L (46-116); Anion Gap 10 (5-15); Aspartate Aminotransferase 36 U/L (13-40); BUN/Creatinine Ratio 12.1 (10.0-20.0); Bilirubin, Total 2.8 mg/dL (0.2-1.0); Blood Urea Nitrogen 15 mg/dL (9-23); Calcium 8.8 mg/dL (8.7-10.4); Carbon Dioxide 20 mmol/L (20-30); Chloride 107 mmol/L (98-107); Glucose 96 mg/dL (74-106); Potassium 4.5 mmol/L (3.5-5.1); Sodium 137 mmol/L (136-145)
[2023-06-11 21:16] LABS: Total Protein 7.8 g/dL (5.7-8.2)
[2023-06-11 21:21] LABS: Red Cell Distribution Width 22.4 % (11.8-14.3)
[2023-06-11] MEDS ORDERED: MORPHINE SULFATE 4 MG/ML SYR/VIAL IV ONE (21:30)
[2023-06-11] MEDS ORDERED: FUROSEMIDE 100 MG/10ML VIAL IV ONE (23:30)
[2023-06-12] VITALS (10 sets, daily range): BP systolic 88–106; BP diastolic 62–79; PULSE 79–106; RESP 15–22; TEMP 97.3–98.4; O2SAT 97–100
[2023-06-12] MEDS ORDERED: ALBUTEROL SULF 2.5 MG/0.5ML(0.5%) NEB SOLN NEB PRN (01:15)
[2023-06-12] MEDS ORDERED: MORPHINE SULFATE INJ 2 MG/ml SYRG IV PRN (01:15)
[2023-06-12] MEDS ORDERED: ONDANSETRON HCL 4 MG/2 ML VIAL IV PRN (01:15)
[2023-06-12] MEDS ORDERED: DEXTROSE (50%) 50ML SYRG IV PRN (01:15)
[2023-06-12] MEDS ORDERED: NITROGLYCERIN 0.4 MG SL TAB SL PRN (01:15)
[2023-06-12] MEDS ORDERED: FUROSEMIDE 20 MG/2 ML VIAL IV SCH (06:00)
[2023-06-12] MEDS: ACCU-CHEK COMFORT CURVE STRIP VI SCH ×4 (06:23→21:29)
[2023-06-12] MEDS: InsuLIN REG 1unit/0.01ml Soln (100units/ml) SC SCH ×4 (06:35→21:29)
[2023-06-12] MEDS: APIXABAN 5 MG TAB PO SCH ×2 (09:58→21:30)
[2023-06-12] MEDS: SACUBITRIL-VALSARTAN 24mg/26mg TAB PO SCH ×2 (09:58→21:30)
[2023-06-12] MEDS ORDERED: ASPirin 81 mg TAB PO SCH (10:00)
[2023-06-12] MEDS ORDERED: CARVEDILOL 3.125 MG TAB PO SCH (10:00)
[2023-06-12] MEDS ORDERED: SPIRONOLACTONE 25 MG TAB PO ONE (10:45)
[2023-06-12] MEDS: FUROSEMIDE 20 MG/2 ML VIAL IV SCH (19:53)
[2023-06-12] MEDS: HYDROcodone-ACET 5/325MG TAB PO PRN (20:07)
[2023-06-12] MEDS: METOPROLOL TARTRATE 25 MG TAB PO SCH (21:31)
[2023-06-13] VITALS (8 sets, daily range): BP systolic 92–103; BP diastolic 58–76; PULSE 63–89; RESP 16–20; TEMP 97.2–98.9; O2SAT 93–100
[2023-06-13] MEDS: EMPAGLIFLOZIN 10 MG TAB PO SCH (06:11)
[2023-06-13] MEDS: FUROSEMIDE 20 MG/2 ML VIAL IV SCH ×2 (06:20→17:54)
[2023-06-13] MEDS: InsuLIN REG 1unit/0.01ml Soln (100units/ml) SC SCH (06:20)
[2023-06-13] MEDS: ACCU-CHEK COMFORT CURVE STRIP VI SCH (06:22)
[2023-06-13 06:40] LABS: Basophils # (auto) 0.1 10 ^3/uL (0-0.2); Eosinophils # (auto) 0.1 10 ^3/uL (0-0.8); Eosinophils % (auto) 1.6 % (0.0-7.0); Lymphocytes # (auto) 1.4 10 ^3/uL (0.4-5.4); Monocytes # (auto) 0.3 10 ^3/uL (0-1.3); Neutrophils % (auto) 62.8 % (37.0-80.0)
[2023-06-13 06:43] LABS: Basophils % (auto) 1.5 % (0.0-2.0); Hematocrit 30.6 % (36.0-46.0); Hemoglobin 9.6 g/dL (12.2-16.2); Lymphocytes % (auto) 27.8 % (10.0-50.0); Mean Corpuscular Hemoglobin 24.7 pg (28.0-32.0); Mean Corpuscular Hgb Conc. 31.2 g/dL (32.0-36.0); Mean Corpuscular Volume 79.2 fL (80.0-100.0); Monocytes % (auto) 6.3 % (0.0-12.0); Neutrophils # (auto) 3.1 10 ^3/uL (1.6-8.6); Nucleated Red Blood Cells % 0.7 %; Red Blood Cells 3.86 10^6/uL (4.0-5.20); White Blood Cell 4.9 10^3/uL (4.4-10.8)
[2023-06-13 06:57] LABS: Red Cell Distribution Width 21.8 % (11.8-14.3)
[2023-06-13 07:08] LABS: Alanine Aminotransferase 16 U/L (7-40); Albumin 2.9 g/dL (3.2-4.8); Alkaline Phosphatase 141 U/L (46-116); Anion Gap 7 (5-15); Aspartate Aminotransferase 29 U/L (13-40); BUN/Creatinine Ratio 11.6 (10.0-20.0); Bilirubin, Total 1.7 mg/dL (0.2-1.0); Blood Urea Nitrogen 15 mg/dL (9-23); Calcium 8.1 mg/dL (8.7-10.4); Carbon Dioxide 23 mmol/L (20-30); Chloride 108 mmol/L (98-107); Glucose 86 mg/dL (74-106); Potassium 4.2 mmol/L (3.5-5.1); Sodium 138 mmol/L (136-145)
[2023-06-13] MEDS: SACUBITRIL-VALSARTAN 24mg/26mg TAB PO SCH ×2 (09:51→22:08)
[2023-06-13] MEDS: METOPROLOL TARTRATE 25 MG TAB PO SCH ×2 (09:52→22:10)
[2023-06-13] MEDS: APIXABAN 5 MG TAB PO SCH ×2 (09:53→22:08)
[2023-06-13] MEDS: SPIRONOLACTONE 25 MG TAB PO SCH (10:00)
[2023-06-13] MEDS ORDERED: SPIRONOLACTONE 25 MG TAB PO SCH ×2 (10:00)
[2023-06-13] MEDS: MUPIROCIN 2% OINT 15gm or 22gm FOR MRSA NARES EACHNOSTRI SCH ×2 (10:00→22:14)
[2023-06-13] MEDS: HYDROcodone-ACET 5/325MG TAB PO PRN ×2 (14:49→22:09)
[2023-06-14] VITALS (8 sets, daily range): BP systolic 98–101; BP diastolic 66–74; PULSE 80–98; RESP 16–20; TEMP 97.6–98.8; O2SAT 91–99
[2023-06-14] MEDS: FUROSEMIDE 20 MG/2 ML VIAL IV SCH ×2 (06:23→17:35)
[2023-06-14] MEDS: EMPAGLIFLOZIN 10 MG TAB PO SCH (06:26)
[2023-06-14] MEDS: HYDROcodone-ACET 5/325MG TAB PO PRN ×2 (06:38→21:11)
[2023-06-14 06:42] LABS: Chloride 104 mmol/L (98-107); Potassium 4.1 mmol/L (3.5-5.1); Sodium 140 mmol/L (136-145)
[2023-06-14 06:43] LABS: Basophils # (auto) 0.1 10 ^3/uL (0-0.2); Basophils % (auto) 1.4 % (0.0-2.0); Calcium 8.3 mg/dL (8.5-10.1); Eosinophils # (auto) 0.1 10 ^3/uL (0-0.8); Eosinophils % (auto) 1.6 % (0.0-7.0); Hematocrit 30.4 % (36.0-46.0); Hemoglobin 9.4 g/dL (12.2-16.2); Lymphocytes # (auto) 1.5 10 ^3/uL (0.4-5.4); Lymphocytes % (auto) 26.5 % (10.0-50.0); Mean Corpuscular Hemoglobin 24.4 pg (28.0-32.0); Mean Corpuscular Hgb Conc. 30.9 g/dL (32.0-36.0); Mean Corpuscular Volume 78.8 fL (80.0-100.0); Monocytes # (auto) 0.5 10 ^3/uL (0-1.3); Monocytes % (auto) 8.6 % (0.0-12.0); Neutrophils # (auto) 3.5 10 ^3/uL (1.6-8.6); Neutrophils % (auto) 61.9 % (37.0-80.0); Nucleated Red Blood Cells % 0.4 %; Red Blood Cells 3.86 10^6/uL (4.0-5.20); White Blood Cell 5.6 10^3/uL (4.4-10.8)
[2023-06-14 06:47] LABS: Glucose 90 mg/dL (74-106)
[2023-06-14 06:48] LABS: BUN/Creatinine Ratio 10.9 (10.0-20.0); Blood Urea Nitrogen 15 mg/dL (9-23)
[2023-06-14 06:59] LABS: Anion Gap 10 (5-15); Carbon Dioxide 26 mmol/L (20-30)
[2023-06-14] MEDS: APIXABAN 5 MG TAB PO SCH ×2 (09:47→21:07)
[2023-06-14] MEDS: SACUBITRIL-VALSARTAN 24mg/26mg TAB PO SCH ×2 (09:47→21:07)
[2023-06-14] MEDS: MUPIROCIN 2% OINT 15gm or 22gm FOR MRSA NARES EACHNOSTRI SCH ×2 (09:47→21:16)
[2023-06-14] MEDS: SPIRONOLACTONE 25 MG TAB PO SCH (09:47)
[2023-06-14] MEDS: METOPROLOL TARTRATE 25 MG TAB PO SCH ×2 (09:48→21:16)
[2023-06-15] VITALS (11 sets, daily range): BP systolic 92–107; BP diastolic 67–77; PULSE 82–100; RESP 16–20; TEMP 97.4–98; O2SAT 90–100
[2023-06-15] MEDS: EMPAGLIFLOZIN 10 MG TAB PO SCH (05:56)
[2023-06-15] MEDS: FUROSEMIDE 20 MG/2 ML VIAL IV SCH ×2 (05:58→17:37)
[2023-06-15] MEDS: HYDROcodone-ACET 5/325MG TAB PO PRN ×2 (06:11→17:41)
[2023-06-15] MEDS: APIXABAN 5 MG TAB PO SCH ×2 (10:03→22:45)
[2023-06-15] MEDS: SACUBITRIL-VALSARTAN 24mg/26mg TAB PO SCH ×2 (10:03→22:50)
[2023-06-15] MEDS: SPIRONOLACTONE 25 MG TAB PO SCH (10:03)
[2023-06-15] MEDS: METOPROLOL TARTRATE 25 MG TAB PO SCH ×2 (10:04→22:00)
[2023-06-15] MEDS: MUPIROCIN 2% OINT 15gm or 22gm FOR MRSA NARES EACHNOSTRI SCH ×2 (10:04→22:51)
[2023-06-16] VITALS (8 sets, daily range): BP systolic 91–102; BP diastolic 62–77; PULSE 82–100; RESP 16–17; TEMP 97.4–98.2; O2SAT 95–100
[2023-06-16] MEDS: EMPAGLIFLOZIN 10 MG TAB PO SCH (07:35)
[2023-06-16] MEDS: FUROSEMIDE 20 MG/2 ML VIAL IV SCH ×2 (07:36→18:39)
[2023-06-16] MEDS: METOPROLOL TARTRATE 25 MG TAB PO SCH ×2 (09:40→21:27)
[2023-06-16] MEDS: SPIRONOLACTONE 25 MG TAB PO SCH (09:40)
[2023-06-16] MEDS: APIXABAN 5 MG TAB PO SCH ×2 (09:40→21:24)
[2023-06-16] MEDS: SACUBITRIL-VALSARTAN 24mg/26mg TAB PO SCH ×2 (09:40→21:24)
[2023-06-16] MEDS: MUPIROCIN 2% OINT 15gm or 22gm FOR MRSA NARES EACHNOSTRI SCH ×2 (09:41→21:26)
[2023-06-16 14:44] LABS: Basophils # (auto) 0.1 10 ^3/uL (0-0.2); Eosinophils # (auto) 0.1 10 ^3/uL (0-0.8); Hemoglobin 9.4 g/dL (12.2-16.2); Lymphocytes # (auto) 1.2 10 ^3/uL (0.4-5.4); Monocytes # (auto) 0.3 10 ^3/uL (0-1.3); White Blood Cell 4.8 10^3/uL (4.4-10.8)
[2023-06-16 14:45] LABS: Basophils % (auto) 1.1 % (0.0-2.0); Eosinophils % (auto) 1.7 % (0.0-7.0); Hematocrit 29.8 % (36.0-46.0); Lymphocytes % (auto) 25.8 % (10.0-50.0); Mean Corpuscular Hemoglobin 24.6 pg (28.0-32.0); Mean Corpuscular Hgb Conc. 31.5 g/dL (32.0-36.0); Mean Corpuscular Volume 78.1 fL (80.0-100.0); Monocytes % (auto) 5.5 % (0.0-12.0); Neutrophils # (auto) 3.2 10 ^3/uL (1.6-8.6); Neutrophils % (auto) 65.9 % (37.0-80.0); Nucleated Red Blood Cells % 0.4 %; Red Blood Cells 3.81 10^6/uL (4.0-5.20); Red Cell Distribution Width 22.5 % (11.8-14.3)
[2023-06-16 14:57] LABS: Chloride 99 mmol/L (98-107); Potassium 4.1 mmol/L (3.5-5.1); Sodium 137 mmol/L (136-145)
[2023-06-16 14:58] LABS: Anion Gap 5 (5-15); Carbon Dioxide 33 mmol/L (20-30)
[2023-06-16 14:59] LABS: Calcium 8.8 mg/dL (8.7-10.4)
[2023-06-16 15:03] LABS: BUN/Creatinine Ratio 9.8 (10.0-20.0); Blood Urea Nitrogen 15 mg/dL (9-23); Glucose 139 mg/dL (74-106)
[2023-06-16] MEDS: HYDROcodone-ACET 5/325MG TAB PO PRN (15:19)
[2023-06-16 15:23] LABS: Body Fluid pH 8
[2023-06-16 17:57] LABS: Body Fluid Polymorphonuclear 15 % (0-25); Body Fluid Red Blood Cells 1265 CUMM (0-2000); Body Fluid White Blood Cells 305 CUMM (0-200)
[2023-06-17 00:32] VITALS: O2SAT 94
[2023-06-17 05:00] VITALS: BP 83/59; PULSE 94; RESP 16; TEMP 97.7; O2SAT 100
[2023-06-17 05:52] LABS: Basophils # (auto) 0.1 10 ^3/uL (0-0.2); Eosinophils # (auto) 0.1 10 ^3/uL (0-0.8); Mean Corpuscular Hgb Conc. 31.6 g/dL (32.0-36.0); Mean Corpuscular Volume 78.6 fL (80.0-100.0); Monocytes # (auto) 0.3 10 ^3/uL (0-1.3); White Blood Cell 4.4 10^3/uL (4.4-10.8)
[2023-06-17 05:55] LABS: Basophils % (auto) 1.4 % (0.0-2.0); Hemoglobin 9.8 g/dL (12.2-16.2); Lymphocytes # (auto) 1.4 10 ^3/uL (0.4-5.4); Lymphocytes % (auto) 31.7 % (10.0-50.0); Mean Corpuscular Hemoglobin 24.9 pg (28.0-32.0); Monocytes % (auto) 6.4 % (0.0-12.0); Neutrophils # (auto) 2.6 10 ^3/uL (1.6-8.6); Neutrophils % (auto) 58.5 % (37.0-80.0); Nucleated Red Blood Cells % 0.1 %; Red Blood Cells 3.94 10^6/uL (4.0-5.20)
[2023-06-17] MEDS: FUROSEMIDE 20 MG/2 ML VIAL IV SCH (06:00)
[2023-06-17 06:05] LABS: Red Cell Distribution Width 22.5 % (11.8-14.3)
[2023-06-17 06:08] LABS: Calcium 8.6 mg/dL (8.7-10.4); Chloride 100 mmol/L (98-107); Potassium 3.6 mmol/L (3.5-5.1); Sodium 138 mmol/L (136-145)
[2023-06-17 06:14] LABS: BUN/Creatinine Ratio 14.6 (10.0-20.0); Blood Urea Nitrogen 19 mg/dL (9-23); Glucose 106 mg/dL (74-106)
[2023-06-17] MEDS: EMPAGLIFLOZIN 10 MG TAB PO SCH (06:43)
[2023-06-17 07:04] LABS: Anion Gap 7 (5-15); Carbon Dioxide 31 mmol/L (20-30)
[2023-06-17 08:00] VITALS: PULSE 95; RESP 16
[2023-06-17 09:00] VITALS: BP 96/73; PULSE 90; RESP 16; TEMP 97.4; O2SAT 100; O2SAT 98
[2023-06-17] MEDS: METOPROLOL TARTRATE 25 MG TAB PO SCH (10:00)
[2023-06-17] MEDS: MUPIROCIN 2% OINT 15gm or 22gm FOR MRSA NARES EACHNOSTRI SCH (10:00)
[2023-06-17] MEDS: SPIRONOLACTONE 25 MG TAB PO SCH (10:00)
[2023-06-17] MEDS: SACUBITRIL-VALSARTAN 24mg/26mg TAB PO SCH (10:00)
[2023-06-17 10:07] LABS: Protein, Body Fluid 3.5 g/dL (.)
[2023-06-17] MEDS: APIXABAN 5 MG TAB PO SCH (12:49)
[2023-06-17] MEDS: HYDROcodone-ACET 5/325MG TAB PO PRN (13:00)
[2023-06-17 15:06] VITALS: BP 93/73; PULSE 93; TEMP 36.3
== END 2023-06-17 17:10 | disposition home or self-care (01) | DRG 280 ==
LOC: EDBD 19:08 → ER 19:13 → TELE 06-12 01:11 → TELE-WESTW 06-12 04:50
PROVIDERS: ADMIT Internal Medicine Pulmonary Disease; ATTEND Student in an Organized Health Care Education/Training Program
PROC: 0W9G3ZZ Drainage of Peritoneal Cavity, Percutaneous Approach (ICD-10-PCS; principal; 2023-06-16)
DX: K70.31 Alcoholic cirrhosis of liver with ascites (principal); J96.21 Acute and chronic respiratory failure with hypoxia; N17.0 Acute kidney failure with tubular necrosis; I50.23 Acute on chronic systolic (congestive) heart failure; I21.A1 Myocardial infarction type 2; I42.7 Cardiomyopathy due to drug and external agent; D63.1 Anemia in chronic kidney disease; N18.6 End stage renal disease; I13.2 Hypertensive heart and chronic kidney disease with heart failure and with stage 5 chronic kidney disease, or end stage renal disease; K70.40 Alcoholic hepatic failure without coma; E11.22 Type 2 diabetes mellitus with diabetic chronic kidney disease; I07.1 Rheumatic tricuspid insufficiency; R79.1 Abnormal coagulation profile; Z79.01 Long term (current) use of anticoagulants; Z82.49 Family history of ischemic heart disease and other diseases of the circulatory system; Z83.3 Family history of diabetes mellitus; Z86.711 Personal history of pulmonary embolism; Z87.891 Personal history of nicotine dependence; Z88.0 Allergy status to penicillin
CPT/HCPCS: 36415; 71045; 76705; 76942; 80048; 80053; 82962; 83735; 83880; 83986; 84484; 85025; 85610; 85730; 87081; 87205; 89051; 93005; 94640; 96374; G0378; J2405

== ENCOUNTER 2023-07-01 19:44 | Inpatient (IN) | payer MEDICAID, OTHER ==
[~2023-07-01] VITALS: Ht 165.1 cm; Wt 71.4 kg
[2023-07-01 20:46] LABS: Basophils # (auto) 0.1 10 ^3/uL (0-0.2); Eosinophils # (auto) 0.1 10 ^3/uL (0-0.8); Eosinophils % (auto) 1.5 % (0.0-7.0); Hemoglobin 9.5 g/dL (12.2-16.2); Lymphocytes # (auto) 1.4 10 ^3/uL (0.4-5.4); Neutrophils # (auto) 3.3 10 ^3/uL (1.6-8.6); Nucleated Red Blood Cells % 0.6 %; White Blood Cell 5.1 10^3/uL (4.4-10.8)
[2023-07-01 20:48] LABS: Basophils % (auto) 1.6 % (0.0-2.0); Hematocrit 30.7 % (36.0-46.0); Lymphocytes % (auto) 26.9 % (10.0-50.0); Mean Corpuscular Hemoglobin 24.1 pg (28.0-32.0); Mean Corpuscular Hgb Conc. 30.8 g/dL (32.0-36.0); Mean Corpuscular Volume 78.2 fL (80.0-100.0); Monocytes # (auto) 0.3 10 ^3/uL (0-1.3); Monocytes % (auto) 5.1 % (0.0-12.0); Neutrophils % (auto) 64.9 % (37.0-80.0); Red Blood Cells 3.93 10^6/uL (4.0-5.20)
[2023-07-01 20:59] LABS: Alanine Aminotransferase 18 U/L (7-40); Albumin 3.5 g/dL (3.2-4.8); Alkaline Phosphatase 145 U/L (46-116); Anion Gap 10 (5-15); Aspartate Aminotransferase 25 U/L (13-40); BUN/Creatinine Ratio 17.5 (10.0-20.0); Blood Urea Nitrogen 24 mg/dL (9-23); Calcium 8.6 mg/dL (8.7-10.4); Carbon Dioxide 22 mmol/L (20-30); Chloride 104 mmol/L (98-107); Glucose 81 mg/dL (74-106); Magnesium 1.9 mg/dL (1.6-2.6); Potassium 4.3 mmol/L (3.5-5.1); Sodium 136 mmol/L (136-145)
[2023-07-01 21:00] LABS: Bilirubin, Total 2.9 mg/dL (0.2-1.0); Total Protein 6.7 g/dL (5.7-8.2)
[2023-07-01 21:01] LABS: INR 1.72 (0.9-1.15); Partial Thromboplastin Time 30.2 SEC (24.5-34.5); Prothrombin Time 17.4 sec (9.3-11.8)
[2023-07-02 00:15] VITALS: PULSE 92; RESP 20; O2SAT 100
[2023-07-02] MEDS ORDERED: ONDANSETRON HCL 4 MG/2 ML VIAL IV ONE (01:15)
[2023-07-02] MEDS ORDERED: MORPHINE SULFATE 4 MG/ML SYR/VIAL IV ONE (01:15)
[2023-07-02] MEDS ORDERED: ONDANSETRON HCL 4 MG/2 ML VIAL IV PRN (03:00)
[2023-07-02] MEDS ORDERED: NITROGLYCERIN 0.4 MG SL TAB SL PRN (03:00)
[2023-07-02] MEDS ORDERED: MORPHINE SULFATE INJ 2 MG/ml SYRG IV PRN (03:00)
[2023-07-02] MEDS ORDERED: DEXTROSE (50%) 50ML SYRG IV PRN (03:00)
[2023-07-02] MEDS ORDERED: ALBUMIN 25% 50 ML IV ONE (05:30)
[2023-07-02] MEDS: FUROSEMIDE 20 MG/2 ML VIAL IV SCH ×2 (06:06→18:00)
[2023-07-02] MEDS: ACCU-CHEK COMFORT CURVE STRIP VI SCH ×4 (06:39→22:53)
[2023-07-02] MEDS: InsuLIN REG 1unit/0.01ml Soln (100units/ml) SC SCH ×4 (06:40→22:00)
[2023-07-02 09:23] VITALS: PULSE 89; RESP 18; O2SAT 99
[2023-07-02] MEDS: SACUBITRIL-VALSARTAN 24mg/26mg TAB PO SCH ×2 (10:00→22:52)
[2023-07-02] MEDS ORDERED: SPIRONOLACTONE 25 MG TAB PO SCH (10:00)
[2023-07-02] MEDS ORDERED: SACUBITRIL-VALSARTAN 24mg/26mg TAB PO SCH (10:00)
[2023-07-02] MEDS ORDERED: CARVEDILOL 3.125 MG TAB PO SCH (10:00)
[2023-07-02] MEDS: SPIRONOLACTONE 25 MG TAB PO SCH (10:00)
[2023-07-02] MEDS: HEPARIN SODIUM (PORCINE) 5000 UNITS/ML 1ML VIAL SC SCH ×2 (10:45→22:52)
[2023-07-02] MEDS: DOBUTamine 1000MCG/ML 250 ML IV SCH (10:46)
[2023-07-02] MEDS ORDERED: DIGOXIN (250MCG/ML) 2 ML AMPULE IV ONE (15:45)
[2023-07-02 19:26] LABS: Urine Bacteria NONE SEEN /hpf (None Seen); Urine Blood Negative /uL (Negative); Urine Clarity Clear (Clear); Urine Color Yellow (Yellow); Urine Mucus FEW (None Seen); Urine Protein, UAD Negative (Negative); Urine Specific Gravity 1.015 (1.001-1.035); Urine WBC 1 /hpf (0 - 5); Urine pH 5.5 (5.0-8.0)
[2023-07-02 19:30] VITALS: PULSE 73; RESP 14; O2SAT 95
[2023-07-02] MEDS ORDERED: HYDR-4611 (23:33)
[2023-07-02] MEDS ORDERED: SACU1TAB PO (23:33)
[2023-07-02] MEDS ORDERED: BUME2TAB5 PO (23:33)
[2023-07-02] MEDS ORDERED: APIX5TAB PO (23:33)
[2023-07-03] VITALS (9 sets, daily range): BP systolic 97–127; BP diastolic 62–77; PULSE 73–89; RESP 16–20; TEMP 98–98.3; O2SAT 95–100
[2023-07-03] MEDS: DOBUTamine 1000MCG/ML 250 ML IV SCH (05:30)
[2023-07-03] MEDS: FUROSEMIDE 20 MG/2 ML VIAL IV SCH ×2 (05:56→17:46)
[2023-07-03] MEDS: ACCU-CHEK COMFORT CURVE STRIP VI SCH ×4 (05:57→22:49)
[2023-07-03 06:37] LABS: Alanine Aminotransferase 11 U/L (7-40); Alkaline Phosphatase 134 U/L (46-116); Anion Gap 8 (5-15); BUN/Creatinine Ratio 14.2 (10.0-20.0); Blood Urea Nitrogen 18 mg/dL (9-23); Calcium 8.1 mg/dL (8.7-10.4); Carbon Dioxide 24 mmol/L (20-30); Chloride 106 mmol/L (98-107); Glucose 102 mg/dL (74-106); Potassium 3.7 mmol/L (3.5-5.1); Sodium 138 mmol/L (136-145)
[2023-07-03 06:38] LABS: Aspartate Aminotransferase 20 U/L (13-40); Bilirubin, Total 2.1 mg/dL (0.2-1.0); Total Protein 5.7 g/dL (5.7-8.2)
[2023-07-03] MEDS: InsuLIN REG 1unit/0.01ml Soln (100units/ml) SC SCH ×4 (06:53→22:00)
[2023-07-03 07:06] LABS: Basophils # (auto) 0.1 10 ^3/uL (0-0.2); Eosinophils # (auto) 0.2 10 ^3/uL (0-0.8); Lymphocytes # (auto) 1.1 10 ^3/uL (0.4-5.4); Neutrophils # (auto) 3.9 10 ^3/uL (1.6-8.6)
[2023-07-03 07:10] LABS: Basophils % (auto) 1.5 % (0.0-2.0); Eosinophils % (auto) 3.1 % (0.0-7.0); Hematocrit 32.6 % (36.0-46.0); Lymphocytes % (auto) 19.3 % (10.0-50.0); Mean Corpuscular Hgb Conc. 30.8 g/dL (32.0-36.0); Monocytes # (auto) 0.4 10 ^3/uL (0-1.3); Monocytes % (auto) 7.7 % (0.0-12.0); Neutrophils % (auto) 68.4 % (37.0-80.0); Nucleated Red Blood Cells % 0.2 %; Red Blood Cells 4.18 10^6/uL (4.0-5.20); White Blood Cell 5.7 10^3/uL (4.4-10.8)
[2023-07-03] MEDS: HEPARIN SODIUM (PORCINE) 5000 UNITS/ML 1ML VIAL SC SCH ×2 (10:00→22:48)
[2023-07-03] MEDS: SACUBITRIL-VALSARTAN 24mg/26mg TAB PO SCH ×2 (11:19→22:49)
[2023-07-03] MEDS: SPIRONOLACTONE 25 MG TAB PO SCH (11:20)
[2023-07-03] MEDS: DIGOXIN (250MCG/ML) 2 ML AMPULE IV SCH (11:23)
[2023-07-03] MEDS: HYDROcodone-ACET 10/325MG TAB PO PRN ×2 (14:29→23:04)
[2023-07-04 05:30] VITALS: BP 115/84; PULSE 88; RESP 17; TEMP 98.1; O2SAT 99
[2023-07-04] MEDS: InsuLIN REG 1unit/0.01ml Soln (100units/ml) SC SCH (06:01)
[2023-07-04] MEDS: FUROSEMIDE 20 MG/2 ML VIAL IV SCH ×2 (06:01→18:03)
[2023-07-04] MEDS: ACCU-CHEK COMFORT CURVE STRIP VI SCH (06:01)
[2023-07-04 08:00] VITALS: PULSE 85; PULSE 87; RESP 16; O2SAT 97
[2023-07-04 09:00] VITALS: BP 115/78; PULSE 87; RESP 16; TEMP 97.9; O2SAT 97
[2023-07-04] MEDS: DOBUTamine 1000MCG/ML 250 ML IV SCH (09:02)
[2023-07-04] MEDS: DIGOXIN (250MCG/ML) 2 ML AMPULE IV SCH (09:26)
[2023-07-04] MEDS: SACUBITRIL-VALSARTAN 24mg/26mg TAB PO SCH ×2 (09:27→21:32)
[2023-07-04] MEDS: HYDROcodone-ACET 10/325MG TAB PO PRN ×2 (09:28→18:02)
[2023-07-04] MEDS: SPIRONOLACTONE 25 MG TAB PO SCH ×2 (09:28→18:02)
[2023-07-04] MEDS: HEPARIN SODIUM (PORCINE) 5000 UNITS/ML 1ML VIAL SC SCH (10:00)
[2023-07-04 13:00] VITALS: BP 130/81; PULSE 94; RESP 20; TEMP 97.8; O2SAT 97
[2023-07-04 16:53] VITALS: BP 114/78; PULSE 85; RESP 16; TEMP 97.9; O2SAT 97
[2023-07-04 20:00] VITALS: BP 117/81; PULSE 93; PULSE 95; RESP 18; TEMP 98; O2SAT 95
[2023-07-05] VITALS (9 sets, daily range): BP systolic 96–126; BP diastolic 72–88; PULSE 87–106; RESP 16–25; TEMP 97.6–98.6; O2SAT 20–99
[2023-07-05] MEDS: HYDROcodone-ACET 10/325MG TAB PO PRN ×2 (00:28→17:32)
[2023-07-05 05:44] LABS: Basophils # (auto) 0.1 10 ^3/uL (0-0.2); Monocytes # (auto) 0.4 10 ^3/uL (0-1.3); Neutrophils # (auto) 3.9 10 ^3/uL (1.6-8.6); White Blood Cell 6.1 10^3/uL (4.4-10.8)
[2023-07-05 05:47] LABS: Basophils % (auto) 1.8 % (0.0-2.0); Eosinophils # (auto) 0.1 10 ^3/uL (0-0.8); Eosinophils % (auto) 2.4 % (0.0-7.0); Hematocrit 37.5 % (36.0-46.0); Hemoglobin 11.5 g/dL (12.2-16.2); Lymphocytes # (auto) 1.6 10 ^3/uL (0.4-5.4); Lymphocytes % (auto) 25.9 % (10.0-50.0); Mean Corpuscular Hemoglobin 23.9 pg (28.0-32.0); Mean Corpuscular Hgb Conc. 30.6 g/dL (32.0-36.0); Mean Corpuscular Volume 78.1 fL (80.0-100.0); Monocytes % (auto) 6.4 % (0.0-12.0); Neutrophils % (auto) 63.5 % (37.0-80.0); Nucleated Red Blood Cells % 0.2 %; Red Cell Distribution Width 22.2 % (11.8-14.3)
[2023-07-05] MEDS: FUROSEMIDE 20 MG/2 ML VIAL IV SCH ×2 (06:00→17:35)
[2023-07-05] MEDS: SPIRONOLACTONE 25 MG TAB PO SCH ×2 (06:00→17:34)
[2023-07-05 06:02] LABS: Anion Gap 6 (5-15); Carbon Dioxide 27 mmol/L (20-30); Chloride 106 mmol/L (98-107); Potassium 3.8 mmol/L (3.5-5.1); Sodium 139 mmol/L (136-145)
[2023-07-05 06:03] LABS: Calcium 8.8 mg/dL (8.7-10.4)
[2023-07-05 06:08] LABS: Blood Urea Nitrogen 17 mg/dL (9-23); Glucose 100 mg/dL (74-106)
[2023-07-05] MEDS: DOBUTamine 1000MCG/ML 250 ML IV SCH (06:45)
[2023-07-05] MEDS: SACUBITRIL-VALSARTAN 24mg/26mg TAB PO SCH ×2 (09:43→21:44)
[2023-07-05] MEDS: DIGOXIN (250MCG/ML) 2 ML AMPULE IV SCH (09:43)
[2023-07-05] MEDS ORDERED: ALBUTEROL MEDNEB 2.5 mg/3ml NEB ONE (13:07)
[2023-07-06] MEDS: HYDROcodone-ACET 10/325MG TAB PO PRN ×3 (04:28→17:13)
[2023-07-06] MEDS: SPIRONOLACTONE 25 MG TAB PO SCH ×2 (04:34→17:18)
[2023-07-06] MEDS: FUROSEMIDE 20 MG/2 ML VIAL IV SCH ×2 (04:35→17:19)
[2023-07-06 04:54] VITALS: BP 117/81; PULSE 106; RESP 18; TEMP 98; O2SAT 95
[2023-07-06 08:00] VITALS: PULSE 100; PULSE 87; RESP 19; O2SAT 94
[2023-07-06 08:20] VITALS: BP 111/81; PULSE 87; RESP 19; TEMP 97.5; O2SAT 94
[2023-07-06] MEDS: SACUBITRIL-VALSARTAN 24mg/26mg TAB PO SCH ×2 (10:35→21:14)
[2023-07-06] MEDS: DIGOXIN (250MCG/ML) 2 ML AMPULE IV SCH (10:36)
[2023-07-06 12:20] VITALS: BP 104/78; PULSE 101; RESP 19; TEMP 97.5; O2SAT 97
[2023-07-06 16:15] VITALS: BP 112/74; PULSE 100; RESP 19; TEMP 97.4; O2SAT 95
[2023-07-06 20:00] VITALS: PULSE 96; O2SAT 94
[2023-07-07 05:00] VITALS: BP 110/75; PULSE 101; RESP 16; TEMP 97.3; O2SAT 100
[2023-07-07] MEDS: SPIRONOLACTONE 25 MG TAB PO SCH (05:44)
[2023-07-07] MEDS: FUROSEMIDE 20 MG/2 ML VIAL IV SCH (05:44)
[2023-07-07] MEDS: HYDROcodone-ACET 10/325MG TAB PO PRN (05:52)
[2023-07-07 08:00] VITALS: PULSE 93; PULSE 99; RESP 18; O2SAT 98
[2023-07-07 08:02] LABS: Basophils # (auto) 0.1 10 ^3/uL (0-0.2); Hemoglobin 10.2 g/dL (12.2-16.2); Monocytes # (auto) 0.3 10 ^3/uL (0-1.3)
[2023-07-07 08:06] LABS: Basophils % (auto) 1.6 % (0.0-2.0); Eosinophils # (auto) 0.1 10 ^3/uL (0-0.8); Eosinophils % (auto) 2.2 % (0.0-7.0); Hematocrit 33.2 % (36.0-46.0); Lymphocytes # (auto) 1.3 10 ^3/uL (0.4-5.4); Lymphocytes % (auto) 24.7 % (10.0-50.0); Mean Corpuscular Hemoglobin 23.7 pg (28.0-32.0); Mean Corpuscular Hgb Conc. 30.6 g/dL (32.0-36.0); Mean Corpuscular Volume 77.6 fL (80.0-100.0); Neutrophils # (auto) 3.6 10 ^3/uL (1.6-8.6); Neutrophils % (auto) 65.5 % (37.0-80.0); Nucleated Red Blood Cells % 0.3 %; Red Blood Cells 4.28 10^6/uL (4.0-5.20); White Blood Cell 5.5 10^3/uL (4.4-10.8)
[2023-07-07 08:07] LABS: Red Cell Distribution Width 22.6 % (11.8-14.3)
[2023-07-07 08:25] LABS: Alanine Aminotransferase 20 U/L (7-40); Albumin 3.8 g/dL (3.2-4.8); Alkaline Phosphatase 145 U/L (46-116); Anion Gap 8 (5-15); Aspartate Aminotransferase 44 U/L (13-40); BUN/Creatinine Ratio 19.2 (10.0-20.0); Bilirubin, Total 2.2 mg/dL (0.2-1.0); Blood Urea Nitrogen 20 mg/dL (9-23); Calcium 9.3 mg/dL (8.5-10.1); Carbon Dioxide 27 mmol/L (20-30); Chloride 105 mmol/L (98-107); Glucose 83 mg/dL (74-106); Potassium 4.2 mmol/L (3.5-5.1); Sodium 140 mmol/L (136-145); Total Protein 7.2 g/dL (5.7-8.2)
[2023-07-07 09:00] VITALS: BP 114/88; PULSE 99; RESP 18; TEMP 98.1; O2SAT 98
[2023-07-07 09:03] LABS: INR 1.23 (0.9-1.15); Partial Thromboplastin Time 27.2 SEC (24.5-34.5); Prothrombin Time 12.7 sec (9.3-11.8)
[2023-07-07] MEDS: SACUBITRIL-VALSARTAN 24mg/26mg TAB PO SCH (10:18)
[2023-07-07] MEDS: DIGOXIN (250MCG/ML) 2 ML AMPULE IV SCH (10:19)
[2023-07-07 13:00] VITALS: BP 112/72; PULSE 70; RESP 17; TEMP 98; O2SAT 100
[2023-07-07 15:20] VITALS: BP 110/75; PULSE 99; RESP 18; TEMP 36.7; O2SAT 96
== END 2023-07-07 16:05 | disposition hospice, inpatient (51) | DRG 194 ==
LOC: EDBD 19:44 → ER 19:49 → EDBD 19:49 → MERGE 07-02 02:55 → TELE 07-02 02:55 → TELE-WESTW 07-02 22:30
PROVIDERS: ADMIT Nurse Practitioner; ATTEND Nurse Practitioner Acute Care
DX: I50.23 Acute on chronic systolic (congestive) heart failure (principal); K76.7 Hepatorenal syndrome; K72.90 Hepatic failure, unspecified without coma; D63.8 Anemia in other chronic diseases classified elsewhere; R18.8 Other ascites; I50.82 Biventricular heart failure; I50.84 End stage heart failure; I42.0 Dilated cardiomyopathy; E11.22 Type 2 diabetes mellitus with diabetic chronic kidney disease; N18.31 Chronic kidney disease, stage 3a; Z51.5 Encounter for palliative care; I07.1 Rheumatic tricuspid insufficiency; R09.89 Other specified symptoms and signs involving the circulatory and respiratory systems; R14.0 Abdominal distension (gaseous); I42.7 Cardiomyopathy due to drug and external agent; T50.905A Adverse effect of unspecified drugs, medicaments and biological substances, initial encounter; Y92.89 Other specified places as the place of occurrence of the external cause; Z86.711 Personal history of pulmonary embolism; Z88.0 Allergy status to penicillin; Z87.891 Personal history of nicotine dependence; Z88.1 Allergy status to other antibiotic agents
CPT/HCPCS: 36415; 71045; 76705; 80048; 80053; 80162; 81001; 82962; 83036; 83735; 83880; 84484; 85025; 85610; 85730; 93005; 93306; 96374; 96375; 99291; G0378; J2405

== ENCOUNTER 2023-07-15 19:48 | Inpatient (IN) | payer MEDICAID ==
[~2023-07-15] VITALS: Ht 160 cm; Wt 60.0 kg
[~2023-07-15 19:48] MED LIST changes: +BUME2TAB5 PO; +HYDR-4611
[2023-07-15 21:09] LABS: Basophils # (auto) 0.1 10 ^3/uL (0-0.2); Basophils % (auto) 1.6 % (0.0-2.0); Eosinophils # (auto) 0.1 10 ^3/uL (0-0.8); Eosinophils % (auto) 1.6 % (0.0-7.0); Hematocrit 36.9 % (36.0-46.0); Hemoglobin 11.1 g/dL (12.2-16.2); Lymphocytes # (auto) 1.6 10 ^3/uL (0.4-5.4); Mean Corpuscular Hemoglobin 24.8 pg (28.0-32.0); Mean Corpuscular Hgb Conc. 29.9 g/dL (32.0-36.0); Mean Corpuscular Volume 82.6 fL (80.0-100.0); Monocytes # (auto) 0.3 10 ^3/uL (0-1.3); Neutrophils # (auto) 3.7 10 ^3/uL (1.6-8.6); Neutrophils % (auto) 63.8 % (37.0-80.0); Nucleated Red Blood Cells % 0.7 %; Red Blood Cells 4.47 10^6/uL (4.0-5.20); White Blood Cell 5.8 10^3/uL (4.4-10.8)
[2023-07-15 21:10] LABS: Red Cell Distribution Width 24.8 % (11.8-14.3)
[2023-07-15 21:27] LABS: INR 1.36 (0.9-1.15); Partial Thromboplastin Time 26.6 SEC (24.5-34.5)
[2023-07-15 21:45] LABS: Alanine Aminotransferase 14 U/L (7-40); Albumin 3.9 g/dL (3.2-4.8); Alkaline Phosphatase 176 U/L (46-116); Anion Gap 12 (5-15); Aspartate Aminotransferase 32 U/L (13-40); BUN/Creatinine Ratio 14.5 (10.0-20.0); Bilirubin, Total 2.2 mg/dL (0.2-1.0); Blood Urea Nitrogen 16 mg/dL (9-23); Calcium 8.6 mg/dL (8.7-10.4); Carbon Dioxide 21 mmol/L (20-30); Chloride 104 mmol/L (98-107); Glucose 86 mg/dL (74-106); Potassium 3.5 mmol/L (3.5-5.1); Sodium 137 mmol/L (136-145); Total Protein 7.4 g/dL (5.7-8.2)
[2023-07-15 22:27] LABS: Anisocytosis Moderate; Platelet Estimate Adequate
[2023-07-15] MEDS ORDERED: FUROSEMIDE 20 MG/2 ML VIAL IV ONE (22:30)
[2023-07-16] VITALS (8 sets, daily range): BP systolic 103–106; BP diastolic 72–77; PULSE 82–99; RESP 17–20; TEMP 97.8; O2SAT 92–100
[2023-07-16] MEDS ORDERED: ALBUTEROL MEDNEB 2.5 mg/3ml NEB NEB PRN (01:00)
[2023-07-16] MEDS ORDERED: MORPHINE SULFATE INJ 2 MG/ml SYRG IV PRN (01:00)
[2023-07-16] MEDS ORDERED: ONDANSETRON HCL 4 MG/2 ML VIAL IV PRN (01:00)
[2023-07-16] MEDS ORDERED: DEXTROSE (50%) 50ML SYRG IV PRN (01:00)
[2023-07-16] MEDS ORDERED: NITROGLYCERIN 0.4 MG SL TAB SL PRN (01:00)
[2023-07-16] MEDS ORDERED: traMADol HCL 50 MG TAB PO ONE (04:00)
[2023-07-16] MEDS ORDERED: FUROSEMIDE 20 MG/2 ML VIAL IV SCH (06:00)
[2023-07-16] MEDS: ACCU-CHEK COMFORT CURVE STRIP VI SCH ×4 (06:14→22:49)
[2023-07-16] MEDS: InsuLIN REG 1unit/0.01ml Soln (100units/ml) SC SCH ×4 (06:14→22:48)
[2023-07-16] MEDS ORDERED: CARVEDILOL 3.125 MG TAB PO SCH (10:00)
[2023-07-16] MEDS ORDERED: APIXABAN 5 MG TAB PO SCH (10:00)
[2023-07-16] MEDS ORDERED: ENOXAPARIN SOD 30 MG/0.3 ML SYRINGE SC SCH (10:00)
[2023-07-16 10:33] LABS: Chloride 107 mmol/L (98-107); Potassium 3.6 mmol/L (3.5-5.1); Sodium 138 mmol/L (136-145)
[2023-07-16 10:35] LABS: Anion Gap 9 (5-15); Calcium 8.7 mg/dL (8.5-10.1); Carbon Dioxide 22 mmol/L (20-30)
[2023-07-16 10:40] LABS: Blood Urea Nitrogen 17 mg/dL (9-23); Glucose 83 mg/dL (74-106)
[2023-07-16] MEDS: SACUBITRIL-VALSARTAN 24mg/26mg TAB PO SCH ×2 (11:09→22:47)
[2023-07-16] MEDS: SPIRONOLACTONE 25 MG TAB PO SCH (11:09)
[2023-07-16] MEDS: BUMETANIDE 2.5mg/10ml (0.25 mg/ml) INJ IV SCH ×2 (11:10→22:48)
[2023-07-16] MEDS: DOBUTamine 1000MCG/ML 250 ML IV SCH (11:11)
[2023-07-16 12:12] LABS: Urine Bacteria NONE SEEN /hpf (None Seen); Urine Blood Negative /uL (Negative); Urine Clarity Clear (Clear); Urine Color Straw (Yellow); Urine Hyaline Cast FEW /lpf (0 - 2); Urine Protein, UAD Negative (Negative); Urine Specific Gravity 1.008 (1.001-1.035); Urine Urobilinogen Normal (Negative); Urine WBC 1 /hpf (0 - 5); Urine pH 5.5 (5.0-8.0)
[2023-07-16] MEDS ORDERED: FUROSEMIDE 20 MG TAB PO ONE (13:45)
[2023-07-16] MEDS: MORPHINE SULFATE INJ 2 MG/ml SYRG IV PRN (15:04)
[2023-07-17] VITALS (10 sets, daily range): BP systolic 94–107; BP diastolic 60–77; PULSE 79–103; RESP 16–20; TEMP 98–98.3; O2SAT 94–100
[2023-07-17] MEDS: MORPHINE SULFATE INJ 2 MG/ml SYRG IV PRN ×4 (00:34→22:02)
[2023-07-17] MEDS ORDERED: ASPI81CH59 PO (02:14)
[2023-07-17] MEDS ORDERED: METO5TAB5 PO (02:14)
[2023-07-17] MEDS ORDERED: HYDR25TA5 PO (02:14)
[2023-07-17] MEDS: ACCU-CHEK COMFORT CURVE STRIP VI SCH ×4 (06:17→21:49)
[2023-07-17] MEDS: EMPAGLIFLOZIN 10 MG TAB PO SCH (06:17)
[2023-07-17] MEDS: InsuLIN REG 1unit/0.01ml Soln (100units/ml) SC SCH ×4 (06:19→22:00)
[2023-07-17 07:24] LABS: Basophils # (auto) 0.1 10 ^3/uL (0-0.2); Eosinophils # (auto) 0.2 10 ^3/uL (0-0.8); Hemoglobin 10.8 g/dL (12.2-16.2); Lymphocytes # (auto) 1.1 10 ^3/uL (0.4-5.4); Neutrophils # (auto) 3.9 10 ^3/uL (1.6-8.6); White Blood Cell 5.6 10^3/uL (4.4-10.8)
[2023-07-17 07:26] LABS: Basophils % (auto) 1.2 % (0.0-2.0); Eosinophils % (auto) 4.1 % (0.0-7.0); Hematocrit 34.3 % (36.0-46.0); Lymphocytes % (auto) 19.3 % (10.0-50.0); Mean Corpuscular Hemoglobin 24.9 pg (28.0-32.0); Mean Corpuscular Hgb Conc. 31.5 g/dL (32.0-36.0); Monocytes # (auto) 0.3 10 ^3/uL (0-1.3); Monocytes % (auto) 5.9 % (0.0-12.0); Neutrophils % (auto) 69.5 % (37.0-80.0); Nucleated Red Blood Cells % 0.2 %; Red Blood Cells 4.34 10^6/uL (4.0-5.20)
[2023-07-17 07:38] LABS: Red Cell Distribution Width 23.5 % (11.8-14.3)
[2023-07-17 07:47] LABS: INR 1.41 (0.9-1.15); Partial Thromboplastin Time 27.1 SEC (24.5-34.5); Prothrombin Time 14.5 sec (9.3-11.8)
[2023-07-17 07:58] LABS: Alanine Aminotransferase 11 U/L (7-40); Albumin 3.1 g/dL (3.2-4.8); Alkaline Phosphatase 118 U/L (46-116); Anion Gap 7 (5-15); Aspartate Aminotransferase 26 U/L (13-40); BUN/Creatinine Ratio 13.2 (10.0-20.0); Blood Urea Nitrogen 16 mg/dL (9-23); Calcium 8.3 mg/dL (8.5-10.1); Carbon Dioxide 28 mmol/L (20-30); Chloride 106 mmol/L (98-107); Glucose 87 mg/dL (74-106); Potassium 3.5 mmol/L (3.5-5.1); Sodium 141 mmol/L (136-145); Total Protein 5.9 g/dL (5.7-8.2)
[2023-07-17] MEDS ORDERED: FUROSEMIDE 20 MG TAB PO SCH (10:00)
[2023-07-17] MEDS ORDERED: POTASSIUM CHL 20 Meq TABLET PO ONE (11:00)
[2023-07-17] MEDS: BUMETANIDE 2.5mg/10ml (0.25 mg/ml) INJ IV SCH ×2 (11:44→21:48)
[2023-07-17] MEDS: SACUBITRIL-VALSARTAN 24mg/26mg TAB PO SCH ×2 (11:45→21:49)
[2023-07-17] MEDS: SPIRONOLACTONE 25 MG TAB PO SCH (11:45)
[2023-07-17] MEDS: ENOXAPARIN SOD 40 MG/0.4 ML SYRINGE SC SCH (11:46)
[2023-07-17] MEDS ORDERED: LISI10TA34 PO (15:37)
[2023-07-17] MEDS ORDERED: FURO20TA3 PO (15:37)
[2023-07-17] MEDS: DOBUTamine 1000MCG/ML 250 ML IV SCH (16:23)
[2023-07-18] VITALS (8 sets, daily range): BP systolic 101–118; BP diastolic 57–85; PULSE 54–96; RESP 14–18; TEMP 97.8–98.4; O2SAT 93–100
[2023-07-18] MEDS: ACCU-CHEK COMFORT CURVE STRIP VI SCH ×4 (06:43→23:00)
[2023-07-18] MEDS: EMPAGLIFLOZIN 10 MG TAB PO SCH (06:43)
[2023-07-18] MEDS: InsuLIN REG 1unit/0.01ml Soln (100units/ml) SC SCH ×4 (06:48→22:00)
[2023-07-18 07:19] LABS: Basophils # (auto) 0.1 10 ^3/uL (0-0.2); Eosinophils # (auto) 0.2 10 ^3/uL (0-0.8); Hematocrit 33.1 % (36.0-46.0); Lymphocytes # (auto) 1.2 10 ^3/uL (0.4-5.4); Monocytes # (auto) 0.4 10 ^3/uL (0-1.3); Neutrophils # (auto) 3.4 10 ^3/uL (1.6-8.6)
[2023-07-18 07:20] LABS: Basophils % (auto) 1.4 % (0.0-2.0); Eosinophils % (auto) 4.3 % (0.0-7.0); Hemoglobin 10.1 g/dL (12.2-16.2); Lymphocytes % (auto) 22.5 % (10.0-50.0); Mean Corpuscular Hemoglobin 24.1 pg (28.0-32.0); Mean Corpuscular Hgb Conc. 30.5 g/dL (32.0-36.0); Mean Corpuscular Volume 78.9 fL (80.0-100.0); Monocytes % (auto) 7.7 % (0.0-12.0); Neutrophils % (auto) 64.1 % (37.0-80.0); Nucleated Red Blood Cells % 0.1 %; Red Cell Distribution Width 24.2 % (11.8-14.3); White Blood Cell 5.3 10^3/uL (4.4-10.8)
[2023-07-18 07:32] LABS: Chloride 101 mmol/L (98-107); Potassium 3.8 mmol/L (3.5-5.1)
[2023-07-18 07:33] LABS: Anion Gap 5 (5-15); Calcium 8.1 mg/dL (8.7-10.4); Carbon Dioxide 28 mmol/L (20-30)
[2023-07-18 07:38] LABS: BUN/Creatinine Ratio 13.9 (10.0-20.0); Blood Urea Nitrogen 17 mg/dL (9-23); Glucose 229 mg/dL (74-106)
[2023-07-18 07:39] LABS: Magnesium 1.8 mg/dL (1.6-2.6)
[2023-07-18 07:57] LABS: Sodium 134 mmol/L (136-145)
[2023-07-18] MEDS ORDERED: MORPHINE SULFATE INJ 2 MG/ml SYRG IV PRN (09:30)
[2023-07-18] MEDS: ENOXAPARIN SOD 40 MG/0.4 ML SYRINGE SC SCH (10:00)
[2023-07-18] MEDS: DOBUTamine 1000MCG/ML 250 ML IV SCH (10:22)
[2023-07-18] MEDS: SPIRONOLACTONE 25 MG TAB PO SCH (10:23)
[2023-07-18] MEDS: SACUBITRIL-VALSARTAN 24mg/26mg TAB PO SCH ×2 (10:23→21:39)
[2023-07-18] MEDS: BUMETANIDE 2.5mg/10ml (0.25 mg/ml) INJ IV SCH ×2 (10:23→23:00)
[2023-07-18] MEDS: HYDROcodone-ACET 5/325MG TAB PO PRN (10:29)
[2023-07-19] VITALS (7 sets, daily range): BP systolic 93–107; BP diastolic 62–74; PULSE 94–102; RESP 14–20; TEMP 97.7–98.8; O2SAT 95–100
[2023-07-19] MEDS: EMPAGLIFLOZIN 10 MG TAB PO SCH (06:49)
[2023-07-19] MEDS: InsuLIN REG 1unit/0.01ml Soln (100units/ml) SC SCH ×4 (06:49→22:00)
[2023-07-19] MEDS: ACCU-CHEK COMFORT CURVE STRIP VI SCH ×4 (06:49→22:01)
[2023-07-19] MEDS: ENOXAPARIN SOD 40 MG/0.4 ML SYRINGE SC SCH (10:00)
[2023-07-19] MEDS: BUMETANIDE 2.5mg/10ml (0.25 mg/ml) INJ IV SCH ×2 (10:06→22:00)
[2023-07-19] MEDS: SACUBITRIL-VALSARTAN 24mg/26mg TAB PO SCH ×2 (10:06→22:00)
[2023-07-19] MEDS: SPIRONOLACTONE 25 MG TAB PO SCH (10:07)
[2023-07-19] MEDS: HYDROcodone-ACET 5/325MG TAB PO PRN ×2 (17:44→22:09)
[2023-07-20] VITALS (9 sets, daily range): BP systolic 88–121; BP diastolic 55–81; PULSE 80–100; RESP 14–20; TEMP 97.5–97.9; O2SAT 95–100
[2023-07-20] MEDS: TEMAZEPAM 15 MG CAP PO PRN (01:53)
[2023-07-20] MEDS: EMPAGLIFLOZIN 10 MG TAB PO SCH (06:50)
[2023-07-20] MEDS: ACCU-CHEK COMFORT CURVE STRIP VI SCH ×4 (06:50→21:57)
[2023-07-20] MEDS: InsuLIN REG 1unit/0.01ml Soln (100units/ml) SC SCH ×4 (06:50→21:57)
[2023-07-20] MEDS: ENOXAPARIN SOD 40 MG/0.4 ML SYRINGE SC SCH (10:00)
[2023-07-20] MEDS: SPIRONOLACTONE 25 MG TAB PO SCH (10:57)
[2023-07-20] MEDS: BUMETANIDE 2.5mg/10ml (0.25 mg/ml) INJ IV SCH ×2 (10:58→21:50)
[2023-07-20] MEDS: SACUBITRIL-VALSARTAN 24mg/26mg TAB PO SCH ×2 (10:58→21:50)
[2023-07-21] VITALS: BP 103/77; PULSE 80; RESP 19; O2SAT 97
[2023-07-21] MEDS: TEMAZEPAM 15 MG CAP PO PRN (00:30)
[2023-07-21 05:00] VITALS: BP 98/65; PULSE 102; RESP 16; TEMP 98; O2SAT 100
[2023-07-21] MEDS: ACCU-CHEK COMFORT CURVE STRIP VI SCH ×2 (06:00→11:30)
[2023-07-21] MEDS: InsuLIN REG 1unit/0.01ml Soln (100units/ml) SC SCH ×2 (06:00→11:30)
[2023-07-21] MEDS: EMPAGLIFLOZIN 10 MG TAB PO SCH (06:01)
[2023-07-21 08:00] VITALS: BP 113/87; PULSE 93; PULSE 95; RESP 16; TEMP 97.7; O2SAT 97
[2023-07-21 09:00] VITALS: BP 113/87; PULSE 93; RESP 16; TEMP 97.7; O2SAT 97
[2023-07-21] MEDS: SACUBITRIL-VALSARTAN 24mg/26mg TAB PO SCH (09:44)
[2023-07-21] MEDS: SPIRONOLACTONE 25 MG TAB PO SCH (09:44)
[2023-07-21] MEDS: BUMETANIDE 2.5mg/10ml (0.25 mg/ml) INJ IV SCH (09:46)
[2023-07-21] MEDS: ENOXAPARIN SOD 40 MG/0.4 ML SYRINGE SC SCH (09:46)
[2023-07-21 11:40] VITALS: BP 113/87; PULSE 93; RESP 16; TEMP 97.7; O2SAT 97
== END 2023-07-21 13:38 | disposition hospice, home (50) ==
LOC: ER 19:48 → TELE-WESTW 07-16 00:58 → TELE 07-16 00:58 → TELE-WESTW 07-16 23:05
PROVIDERS: ADMIT Nurse Practitioner; ATTEND Internal Medicine Geriatric Medicine
PROC: 0W9G3ZZ Drainage of Peritoneal Cavity, Percutaneous Approach (ICD-10-PCS; principal; 2023-07-18)
DX: K74.60 Unspecified cirrhosis of liver (principal); I50.23 Acute on chronic systolic (congestive) heart failure; R18.8 Other ascites; I42.7 Cardiomyopathy due to drug and external agent; E44.0 Moderate protein-calorie malnutrition; D63.8 Anemia in other chronic diseases classified elsewhere; E11.22 Type 2 diabetes mellitus with diabetic chronic kidney disease; I13.2 Hypertensive heart and chronic kidney disease with heart failure and with stage 5 chronic kidney disease, or end stage renal disease; I07.1 Rheumatic tricuspid insufficiency; Z79.01 Long term (current) use of anticoagulants; Z79.4 Long term (current) use of insulin; Z82.49 Family history of ischemic heart disease and other diseases of the circulatory system; Z83.3 Family history of diabetes mellitus; Z86.711 Personal history of pulmonary embolism; Z87.891 Personal history of nicotine dependence; Z68.23 Body mass index [BMI] 23.0-23.9, adult; Z88.0 Allergy status to penicillin
CPT/HCPCS: 36415; 71045; 76705; 76942; 80048; 80053; 81001; 81025; 82140; 82962; 83735; 83880; 84484; 85025; 85610; 85730; 87081; 93005; G0378; J2405

== ENCOUNTER 2023-08-08 05:35 | Inpatient (IN) | payer MEDICAID ==
[2023-08-08] VITALS (16 sets, daily range): BP systolic 100–144; BP diastolic 71–92; PULSE 76–108; RESP 14–29; TEMP 97.7; O2SAT 93–100
[~2023-08-08] VITALS: Ht 160 cm; Wt 55.1 kg
[~2023-08-08 05:35] MED LIST changes: +ASPI81CH59 PO; -BUME1TAB3 PO; +FURO20TA3 PO; -HYDR-4611; -HYDR-4902 PO; +HYDR25TA5 PO; +LISI10TA34 PO; +METO5TAB5 PO
[2023-08-08 06:23] LABS: Basophils # (auto) 0.1 10 ^3/uL (0-0.2); Eosinophils # (auto) 0 10 ^3/uL (0-0.8); Hemoglobin 11.5 g/dL (12.2-16.2); Lymphocytes # (auto) 1.2 10 ^3/uL (0.4-5.4)
[2023-08-08 06:25] LABS: Basophils % (auto) 0.8 % (0.0-2.0); Eosinophils % (auto) 0.4 % (0.0-7.0); Hematocrit 38.6 % (36.0-46.0); Lymphocytes % (auto) 15.1 % (10.0-50.0); Mean Corpuscular Hemoglobin 25.1 pg (28.0-32.0); Mean Corpuscular Hgb Conc. 29.8 g/dL (32.0-36.0); Mean Corpuscular Volume 84.1 fL (80.0-100.0); Monocytes # (auto) 0.4 10 ^3/uL (0-1.3); Monocytes % (auto) 5.2 % (0.0-12.0); Neutrophils # (auto) 6.5 10 ^3/uL (1.6-8.6); Neutrophils % (auto) 78.5 % (37.0-80.0); Red Blood Cells 4.59 10^6/uL (4.0-5.20); White Blood Cell 8.3 10^3/uL (4.4-10.8)
[2023-08-08] MEDS ORDERED: MORPHINE SULFATE 4 MG/ML SYR/VIAL IV ONE (06:30)
[2023-08-08] MEDS ORDERED: ONDANSETRON HCL 4 MG/2 ML VIAL IV ONE (06:30)
[2023-08-08] MEDS ORDERED: FUROSEMIDE 100 MG/10ML VIAL IV ONE (06:30)
[2023-08-08 06:32] LABS: INR 2.02 (0.9-1.15); Partial Thromboplastin Time 33.8 SEC (24.5-34.5); Prothrombin Time 20.3 sec (9.3-11.8)
[2023-08-08 06:40] LABS: Nucleated Red Blood Cells % 4.5 %; Red Cell Distribution Width 24.6 % (11.8-14.3)
[2023-08-08 06:42] LABS: Base Excess -14.5 mmol/L (-2.0-2.0)
[2023-08-08 06:57] LABS: Alanine Aminotransferase 42 U/L (7-40); Albumin 3.8 g/dL (3.2-4.8); Alkaline Phosphatase 152 U/L (46-116); Anion Gap 17 (5-15); Aspartate Aminotransferase 96 U/L (13-40); BUN/Creatinine Ratio 30.8 (10.0-20.0); Calcium 9.1 mg/dL (8.5-10.1); Carbon Dioxide 13 mmol/L (20-30); Chloride 103 mmol/L (98-107); Glucose 106 mg/dL (74-106); Sodium 133 mmol/L (136-145)
[2023-08-08 06:58] LABS: Bilirubin, Total 4.3 mg/dL (0.2-1.0); Total Protein 7.3 g/dL (5.7-8.2)
[2023-08-08 07:08] LABS: Blood Urea Nitrogen 90 mg/dL (9-23); Potassium 6.1 mmol/L (3.5-5.1)
[2023-08-08] MEDS ORDERED: InsuLIN REG 1unit/0.01ml Soln (100units/ml) IV ONE (07:30)
[2023-08-08] MEDS ORDERED: ALBUTEROL SULF 2.5 MG/0.5ML(0.5%) NEB SOLN NEB ONE (07:30)
[2023-08-08] MEDS ORDERED: SODIUM BICARBONATE 8.4% INJ 50ML SYRINGE IV ONE (07:30)
[2023-08-08] MEDS ORDERED: SODIUM ZIRCONIUM CYCL 10 GM PAK PO ONE (07:30)
[2023-08-08] MEDS ORDERED: DEXTROSE (50%) 50ML SYRG IV ONE (07:30)
[2023-08-08 08:46] LABS: Base Excess -14.3 mmol/L (-2.0-2.0)
[2023-08-08 08:57] LABS: Amphetamine Screen, Urine Neg (NEGATIVE); Barbiturate Scree,Urine Neg (NEGATIVE); Benzodiazephine Screen, Urine Neg (NEGATIVE)
[2023-08-08 08:58] LABS: Cannabinoid Screen, Urine Neg (NEGATIVE); Cocaine Screen, Urine Neg (NEGATIVE); Opiate Scree,Urine Pos (NEGATIVE); Phencyclidine Screen, Urine Neg (NEGATIVE)
[2023-08-08] MEDS ORDERED: DEXTROSE (50%) 50ML SYRG IV PRN (09:45)
[2023-08-08] MEDS ORDERED: NITROGLYCERIN 0.4 MG SL TAB SL PRN (09:45)
[2023-08-08] MEDS ORDERED: ALBUTEROL MEDNEB 2.5 mg/3ml NEB NEB PRN (09:45)
[2023-08-08] MEDS ORDERED: IVABRADINE 5 MG TAB PO SCH (10:00)
[2023-08-08] MEDS ORDERED: hydrALAZINE HCL 20 MG/ML VL IV PRN (10:00)
[2023-08-08] MEDS ORDERED: PATIENTS OWN MEDICATION (Metoprolol Succinate (Metoprolol Succinate Er) 1 TAB) PO SCH (10:00)
[2023-08-08] MEDS ORDERED: SACUBITRIL-VALSARTAN 24mg/26mg TAB PO SCH (10:00)
[2023-08-08] MEDS ORDERED: CARVEDILOL 3.125 MG TAB PO SCH (10:00)
[2023-08-08] MEDS ORDERED: PATIENTS OWN MEDICATION (Bumetanide 1 TAB) PO SCH (10:00)
[2023-08-08] MEDS ORDERED: metOLazone 5 MG TAB PO SCH (10:00)
[2023-08-08] MEDS: ALBUTEROL MEDNEB 2.5 mg/3ml NEB NEB SCH ×4 (10:00→22:17)
[2023-08-08] MEDS ORDERED: LISINOPRIL 10 MG TAB PO SCH (10:00)
[2023-08-08] MEDS ORDERED: HEPARIN SODIUM (PORCINE) 5000 UNITS/ML 1ML VIAL SC SCH (10:00)
[2023-08-08] MEDS ORDERED: PATIENTS OWN MEDICATION (Dapagliflozin Propanediol (Farxiga) 1 TAB) PO SCH (10:00)
[2023-08-08] MEDS ORDERED: SODIUM BICARBONATE 8.4 % INJ 50ML VIAL IV ONE (10:00)
[2023-08-08] MEDS ORDERED: APIXABAN 5 MG TAB PO SCH (10:00)
[2023-08-08] MEDS ORDERED: ASPirin 325 MG TAB PO ONE (10:30)
[2023-08-08] MEDS: IPRATROPIUM BROM 0.5 MG/2.5ML INH SOL NEB SCH ×4 (10:51→22:17)
[2023-08-08] MEDS: FAMOTIDINE 20 MG TAB PO SCH (11:26)
[2023-08-08] MEDS: InsuLIN REG 1unit/0.01ml Soln (100units/ml) SC SCH ×3 (11:30→22:02)
[2023-08-08 11:32] LABS: Anion Gap 15 (5-15); Calcium 9.2 mg/dL (8.5-10.1); Carbon Dioxide 13 mmol/L (20-30); Chloride 104 mmol/L (98-107); Sodium 132 mmol/L (136-145)
[2023-08-08] MEDS: ACCU-CHEK COMFORT CURVE STRIP VI SCH ×3 (11:36→21:56)
[2023-08-08 11:37] LABS: Glucose 95 mg/dL (74-106)
[2023-08-08 12:07] LABS: Blood Urea Nitrogen 71 mg/dL (9-23)
[2023-08-08 12:12] LABS: Lactic Acid w/Reflex 4.5 mmol/L (0.4-2.0)
[2023-08-08] MEDS: DOBUTamine 1000MCG/ML 250 ML IV SCH (13:30)
[2023-08-08] MEDS ORDERED: FUROSEMIDE 20 MG/2 ML VIAL IV SCH (14:00)
[2023-08-08] MEDS ORDERED: HEPARIN SODIUM (PORCINE) 5000 UNITS/ML 1ML VIAL IV ONE ×3 (14:45→22:00)
[2023-08-08] MEDS ORDERED: HEPARIN DRIP/D5W 100UNITS/ML 250 ML IV SCH ×3 (14:45→22:00)
[2023-08-08 15:12] LABS: Basophils % (auto) 1.3 % (0.0-2.0); Eosinophils # (auto) 0 10 ^3/uL (0-0.8); Lymphocytes # (auto) 0.8 10 ^3/uL (0.4-5.4); Lymphocytes % (auto) 10.6 % (10.0-50.0); Monocytes # (auto) 0.5 10 ^3/uL (0-1.3); Monocytes % (auto) 6.2 % (0.0-12.0); Neutrophils # (auto) 6.3 10 ^3/uL (1.6-8.6); Neutrophils % (auto) 81.9 % (37.0-80.0); White Blood Cell 7.7 10^3/uL (4.4-10.8)
[2023-08-08 15:13] LABS: Basophils # (auto) 0.1 10 ^3/uL (0-0.2); Hematocrit 32.7 % (36.0-46.0); Hemoglobin 9.9 g/dL (12.2-16.2); Mean Corpuscular Hemoglobin 24.9 pg (28.0-32.0); Mean Corpuscular Hgb Conc. 30.2 g/dL (32.0-36.0); Mean Corpuscular Volume 82.2 fL (80.0-100.0); Nucleated Red Blood Cells % 3.7 %; Red Blood Cells 3.97 10^6/uL (4.0-5.20); Red Cell Distribution Width 24.8 % (11.8-14.3)
[2023-08-08] MEDS: NOREPINEPHRINE 8 MG/250ML KIT 250 ML IV SCH (15:15)
[2023-08-08 15:21] LABS: INR 2.2 (0.9-1.15); Partial Thromboplastin Time 39.6 SEC (24.5-34.5); Prothrombin Time 21.9 sec (9.3-11.8)
[2023-08-08] MEDS: VASOPRESSIN 20 UNITS in SODIUM CHL 0.9% 99 ML IV SCH ×2 (16:46→21:20)
[2023-08-08] MEDS: MORPHINE SULFATE INJ 2 MG/ml SYRG IV PRN (20:49)
[2023-08-08] MEDS ORDERED: BUMETANIDE 1 MG TAB PO SCH (22:00)
[2023-08-08 23:15] LABS: Lactic Acid w/Reflex 2.7 mmol/L (0.4-2.0)
[2023-08-08 23:56] LABS: Alanine Aminotransferase 41 U/L (7-40); Albumin 3.5 g/dL (3.2-4.8); Alkaline Phosphatase 134 U/L (46-116); Anion Gap 13 (5-15); Aspartate Aminotransferase 100 U/L (13-40); BUN/Creatinine Ratio 24.1 (10.0-20.0); Blood Urea Nitrogen 71 mg/dL (9-23); Calcium 8.3 mg/dL (8.7-10.4); Carbon Dioxide 16 mmol/L (20-30); Chloride 103 mmol/L (98-107); Glucose 200 mg/dL (74-106); Magnesium 2.7 mg/dL (1.6-2.6); Phosphorus 7.7 mg/dL (2.4-5.1); Potassium 5.1 mmol/L (3.5-5.1); Sodium 132 mmol/L (136-145)
[2023-08-08 23:57] LABS: Bilirubin, Total 3.6 mg/dL (0.2-1.0); Total Protein 6.9 g/dL (5.7-8.2)
[2023-08-09] VITALS (42 sets, daily range): BP systolic 91–124; BP diastolic 64–88; PULSE 74–109; RESP 13–20; TEMP 97.6–98; O2SAT 86–100
[2023-08-09] MEDS: MORPHINE SULFATE INJ 2 MG/ml SYRG IV PRN ×5 (00:16→22:46)
[2023-08-09 00:20] LABS: Base Excess -8.4 mmol/L (-2.0-2.0)
[2023-08-09] MEDS ORDERED: SODIUM BICARBONATE 8.4% INJ 50ML SYRINGE ONE (00:40)
[2023-08-09] MEDS ORDERED: SODIUM BICARBONATE 8.4 % INJ 50ML VIAL IV ONE ×3 (00:45→06:15)
[2023-08-09] MEDS: VASOPRESSIN 20 UNITS in SODIUM CHL 0.9% 99 ML IV SCH ×3 (02:22→23:23)
[2023-08-09] MEDS: IPRATROPIUM BROM 0.5 MG/2.5ML INH SOL NEB SCH ×6 (02:34→22:05)
[2023-08-09] MEDS: ALBUTEROL MEDNEB 2.5 mg/3ml NEB NEB SCH ×6 (02:35→22:05)
[2023-08-09 05:40] LABS: Alanine Aminotransferase 39 U/L (7-40); Albumin 3.5 g/dL (3.2-4.8); Alkaline Phosphatase 133 U/L (46-116); Anion Gap 13 (5-15); Aspartate Aminotransferase 98 U/L (13-40); BUN/Creatinine Ratio 26.8 (10.0-20.0); Blood Urea Nitrogen 73 mg/dL (9-23); Calcium 8.2 mg/dL (8.7-10.4); Carbon Dioxide 19 mmol/L (20-30); Chloride 101 mmol/L (98-107); Glucose 140 mg/dL (74-106); Potassium 4.7 mmol/L (3.5-5.1); Sodium 133 mmol/L (136-145)
[2023-08-09 05:41] LABS: Bilirubin, Total 3.6 mg/dL (0.2-1.0); Total Protein 6.8 g/dL (5.7-8.2)
[2023-08-09 05:52] LABS: Hematocrit 34.7 % (36.0-46.0); Hemoglobin 11.1 g/dL (12.2-16.2); Mean Corpuscular Hemoglobin 26.4 pg (28.0-32.0); Mean Corpuscular Volume 82.5 fL (80.0-100.0); Red Blood Cells 4.21 10^6/uL (4.0-5.20); White Blood Cell 7.7 10^3/uL (4.4-10.8)
[2023-08-09 05:55] LABS: Lactic Acid w/Reflex 2.6 mmol/L (0.4-2.0)
[2023-08-09 06:03] LABS: Red Cell Distribution Width 24.7 % (11.8-14.3)
[2023-08-09 06:04] LABS: Basophils % (manual) 0 (0.0-2.0); Blast Cells 0; Eosinophils % (manual) 0 (0-7); Metamyelocytes % 0; Promyelocytes % 0; Reactive Lymphocytes 0
[2023-08-09 06:13] LABS: INR 2.06 (0.9-1.15); Prothrombin Time 20.6 sec (9.3-11.8)
[2023-08-09] MEDS ORDERED: diphenhdrAMINE HCL 50 MG/1 ML VL IV ONE (06:15)
[2023-08-09 06:36] LABS: Partial Thromboplastin Time > 139.0 SEC (24.5-34.5)
[2023-08-09] MEDS: ACCU-CHEK COMFORT CURVE STRIP VI SCH ×4 (06:43→22:06)
[2023-08-09] MEDS: InsuLIN REG 1unit/0.01ml Soln (100units/ml) SC SCH ×4 (06:46→22:09)
[2023-08-09] MEDS ORDERED: HCTZ PO SCH (07:00)
[2023-08-09] MEDS ORDERED: HEPARIN DRIP/D5W 100UNITS/ML 250 ML IV SCH (07:40)
[2023-08-09] MEDS: ONDANSETRON HCL 4 MG/2 ML VIAL IV PRN ×2 (08:29→14:32)
[2023-08-09 08:40] LABS: Anisocytosis Slight; Band Neutrophils % (manual) 8; Lymphocytes % (manual) 14 (10.0-50.0); Monocytes % (manual) 5 (0-12); Myelocytes % 1; Platelet Estimate Adequate
[2023-08-09 08:57] LABS: Base Excess -3.2 mmol/L (-2.0-2.0)
[2023-08-09] MEDS ORDERED: ENOXAPARIN SOD 60 MG/0.6 ML SYRINGE SC SCH (10:00)
[2023-08-09] MEDS ORDERED: METOPROLOL SUCCINATE XL 50 MG TAB PO SCH (10:00)
[2023-08-09] MEDS ORDERED: FUROSEMIDE 20 MG/2 ML VIAL IV SCH (10:00)
[2023-08-09] MEDS ORDERED: hydroCHLOROthiazide 25 MG TAB PO SCH (10:00)
[2023-08-09] MEDS: SODIUM ZIRCONIUM CYCL 10 GM PAK PO SCH (10:00)
[2023-08-09] MEDS: FUROSEMIDE 100 MG/10ML VIAL IV SCH (10:21)
[2023-08-09] MEDS: ASPirin 81 mg TAB PO SCH (10:21)
[2023-08-09] MEDS: FAMOTIDINE 20 MG TAB PO SCH (10:21)
[2023-08-09] MEDS: DOBUTamine 1000MCG/ML 250 ML IV SCH (12:00)
[2023-08-09 13:49] LABS: INR 1.8 (0.9-1.15); Prothrombin Time 18.2 sec (9.3-11.8)
[2023-08-09] MEDS: NOREPINEPHRINE 8 MG/250ML KIT 250 ML IV SCH (15:28)
[2023-08-09 18:50] LABS: Protein, Urine 9.1 mg/dL (0.0-11.9)
[2023-08-09 18:53] LABS: Creatinine, Urine 18.65 mg/dL (30.0-125.0)
[2023-08-09 21:20] LABS: INR 1.66 (0.9-1.15); Partial Thromboplastin Time 39.3 SEC (24.5-34.5); Prothrombin Time 16.9 sec (9.3-11.8)
[2023-08-10] VITALS (101 sets, daily range): BP systolic 92–129; BP diastolic 65–90; PULSE 74–110; RESP 10–29; TEMP 97.6–98.3; O2SAT 88–100
[2023-08-10] MEDS: DOBUTamine 1000MCG/ML 250 ML IV SCH ×2 (00:36→22:48)
[2023-08-10] MEDS: IPRATROPIUM BROM 0.5 MG/2.5ML INH SOL NEB SCH ×6 (01:57→22:21)
[2023-08-10] MEDS: ALBUTEROL MEDNEB 2.5 mg/3ml NEB NEB SCH ×6 (01:57→22:21)
[2023-08-10] MEDS: MORPHINE SULFATE INJ 2 MG/ml SYRG IV PRN ×5 (02:45→18:53)
[2023-08-10 05:22] LABS: Chloride 98 mmol/L (98-107); Potassium 3.8 mmol/L (3.5-5.1); Sodium 135 mmol/L (136-145)
[2023-08-10 05:23] LABS: Anion Gap 10 (5-15); Carbon Dioxide 27 mmol/L (20-30)
[2023-08-10 05:24] LABS: Calcium 8.4 mg/dL (8.7-10.4)
[2023-08-10 05:28] LABS: BUN/Creatinine Ratio 35.1 (10.0-20.0); Glucose 82 mg/dL (74-106)
[2023-08-10 05:45] LABS: INR 1.58 (0.9-1.15); Prothrombin Time 16.1 sec (9.3-11.8)
[2023-08-10 06:04] LABS: Blood Urea Nitrogen 60 mg/dL (9-23)
[2023-08-10] MEDS: InsuLIN REG 1unit/0.01ml Soln (100units/ml) SC SCH ×4 (06:37→21:33)
[2023-08-10] MEDS: ACCU-CHEK COMFORT CURVE STRIP VI SCH ×4 (06:37→21:35)
[2023-08-10 08:22] LABS: Basophils # (auto) 0.1 10 ^3/uL (0-0.2); Basophils % (auto) 0.7 % (0.0-2.0); Eosinophils # (auto) 0.2 10 ^3/uL (0-0.8); Monocytes # (auto) 0.6 10 ^3/uL (0-1.3); Neutrophils # (auto) 6.7 10 ^3/uL (1.6-8.6)
[2023-08-10 08:24] LABS: Eosinophils % (auto) 1.8 % (0.0-7.0); Hematocrit 34.3 % (36.0-46.0); Hemoglobin 10.3 g/dL (12.2-16.2); Lymphocytes # (auto) 1.1 10 ^3/uL (0.4-5.4); Lymphocytes % (auto) 13.1 % (10.0-50.0); Mean Corpuscular Hemoglobin 24.5 pg (28.0-32.0); Mean Corpuscular Hgb Conc. 30.2 g/dL (32.0-36.0); Monocytes % (auto) 7.3 % (0.0-12.0); Neutrophils % (auto) 77.1 % (37.0-80.0); Nucleated Red Blood Cells % 3.7 %; Red Blood Cells 4.23 10^6/uL (4.0-5.20); Red Cell Distribution Width 24.5 % (11.8-14.3); White Blood Cell 8.7 10^3/uL (4.4-10.8)
[2023-08-10 09:49] LABS: COVID19 ANTIGEN SOFIA FIA NEGATIVE (NEGATIVE); Rapid Influenza A Negative (Negative); Rapid Influenza B Negative (Negative)
[2023-08-10] MEDS: SODIUM ZIRCONIUM CYCL 10 GM PAK PO SCH (09:59)
[2023-08-10] MEDS: FUROSEMIDE 100 MG/10ML VIAL IV SCH (10:00)
[2023-08-10] MEDS: FAMOTIDINE 20 MG TAB PO SCH (10:22)
[2023-08-10] MEDS: ASPirin 81 mg TAB PO SCH (10:22)
[2023-08-10] MEDS: VASOPRESSIN 20 UNITS in SODIUM CHL 0.9% 99 ML IV SCH ×2 (10:24→22:49)
[2023-08-10] MEDS: NOREPINEPHRINE 8 MG/250ML KIT 250 ML IV SCH (10:25)
[2023-08-10] MEDS: HEPARIN DRIP/D5W 100UNITS/ML 250 ML IV SCH ×2 (10:37→14:30)
[2023-08-10] MEDS: ONDANSETRON HCL 4 MG/2 ML VIAL IV PRN ×3 (10:49→18:53)
[2023-08-10 11:40] LABS: INR 1.55 (0.9-1.15); Prothrombin Time 15.8 sec (9.3-11.8)
[2023-08-10 11:43] LABS: Partial Thromboplastin Time 74.6 SEC (24.5-34.5)
[2023-08-10] MEDS ORDERED: LIDOCAINE 1% (LOCAL ANESTH.) PF 5ml SDV ID ONE (17:30)
[2023-08-10 17:37] LABS: INR 1.56 (0.9-1.15); Prothrombin Time 15.9 sec (9.3-11.8)
[2023-08-10 17:43] LABS: Partial Thromboplastin Time 94.6 SEC (24.5-34.5)
[2023-08-10] MEDS: FUROSEMIDE 20 MG TAB PO SCH (18:06)
[2023-08-10] MEDS ORDERED: HEPARIN DRIP/D5W 100UNITS/ML 250 ML IV SCH (19:00)
[2023-08-10] MEDS: SODIUM CHLOR 0.9% PF (SALINE LOCK) 10ML VIAL/SYR IV SCH (21:35)
[2023-08-10] MEDS: SALINE 0.65 % NASAL SPRAY 45ML BOTTLE EACHNOSTRI SCH (21:35)
[2023-08-11] VITALS (101 sets, daily range): BP systolic 72–134; BP diastolic 33–113; PULSE 88–135; RESP 8–25; TEMP 97.6–98.9; O2SAT 82–100
[2023-08-11] MEDS: ONDANSETRON HCL 4 MG/2 ML VIAL IV PRN ×6 (00:04→20:15)
[2023-08-11] MEDS: MORPHINE SULFATE INJ 2 MG/ml SYRG IV PRN ×6 (00:05→20:15)
[2023-08-11 01:12] LABS: INR 1.45 (0.9-1.15); Partial Thromboplastin Time 48.6 SEC (24.5-34.5); Prothrombin Time 14.9 sec (9.3-11.8)
[2023-08-11] MEDS: IPRATROPIUM BROM 0.5 MG/2.5ML INH SOL NEB SCH ×6 (02:03→22:00)
[2023-08-11] MEDS: ALBUTEROL MEDNEB 2.5 mg/3ml NEB NEB SCH ×6 (02:03→22:00)
[2023-08-11] MEDS ORDERED: HEPARIN DRIP/D5W 100UNITS/ML 250 ML IV SCH ×2 (02:15→16:00)
[2023-08-11 05:44] LABS: Chloride 97 mmol/L (98-107); Potassium 3.2 mmol/L (3.5-5.1); Sodium 134 mmol/L (136-145)
[2023-08-11 05:45] LABS: Anion Gap 6 (5-15); Calcium 8.6 mg/dL (8.5-10.1); Carbon Dioxide 31 mmol/L (20-30)
[2023-08-11] MEDS: SALINE 0.65 % NASAL SPRAY 45ML BOTTLE EACHNOSTRI SCH ×4 (05:48→22:00)
[2023-08-11] MEDS: FUROSEMIDE 20 MG TAB PO SCH ×2 (05:48→18:11)
[2023-08-11 05:50] LABS: BUN/Creatinine Ratio 33.1 (10.0-20.0); Glucose 112 mg/dL (74-106)
[2023-08-11 05:59] LABS: Blood Urea Nitrogen 47 mg/dL (9-23)
[2023-08-11] MEDS: ACCU-CHEK COMFORT CURVE STRIP VI SCH ×4 (06:16→22:00)
[2023-08-11] MEDS: InsuLIN REG 1unit/0.01ml Soln (100units/ml) SC SCH ×4 (06:16→22:00)
[2023-08-11] MEDS: ASPirin 81 mg TAB PO SCH (08:25)
[2023-08-11] MEDS: FAMOTIDINE 20 MG TAB PO SCH (08:25)
[2023-08-11 09:22] LABS: Hepatitis B Surface Antigen Negative (Negative)
[2023-08-11 09:41] LABS: INR 1.48 (0.9-1.15); Partial Thromboplastin Time 50.4 SEC (24.5-34.5); Prothrombin Time 15.1 sec (9.3-11.8)
[2023-08-11 09:42] LABS: Hepatitis A Ab IgM Negative
[2023-08-11 09:43] LABS: Hepatitis B Core IgM Negative; Hepatitis C Antibody Negative (Negative)
[2023-08-11] MEDS: VASOPRESSIN 20 UNITS in SODIUM CHL 0.9% 99 ML IV SCH (09:57)
[2023-08-11] MEDS: SODIUM ZIRCONIUM CYCL 10 GM PAK PO SCH (10:00)
[2023-08-11] MEDS ORDERED: FUROSEMIDE 40 MG/4 ML VIAL IV SCH (10:00)
[2023-08-11 12:40] LABS: Urine Bacteria MOD /hpf (None Seen); Urine Blood 2+ /uL (Negative); Urine Clarity Clear (Clear); Urine Color Yellow (Yellow); Urine Hyaline Cast FEW /lpf (0 - 2); Urine Mucus FEW (None Seen); Urine Protein, UAD Negative (Negative); Urine Specific Gravity 1.008 (1.001-1.035); Urine Urobilinogen Normal (Negative); Urine WBC 11 /hpf (0 - 5)
[2023-08-11 12:46] LABS: Protein, Urine 18.5 mg/dL (0.0-11.9)
[2023-08-11 12:47] LABS: Creatinine, Urine 19.3 mg/dL (30.0-125.0); Urine Protein/Creatinine Ratio 0.96
[2023-08-11 12:54] LABS: Partial Thromboplastin Time 70.3 SEC (24.5-34.5)
[2023-08-11] MEDS: SODIUM CHLOR 0.9% PF (SALINE LOCK) 10ML VIAL/SYR IV SCH ×2 (13:03→22:00)
[2023-08-11 15:35] LABS: INR 1.64 (0.9-1.15); Prothrombin Time 16.7 sec (9.3-11.8)
[2023-08-11 15:41] LABS: Partial Thromboplastin Time > 139.0 SEC (24.5-34.5)
[2023-08-11] MEDS: POTASSIUM EFFERVESENT TAB 25 MEQ PO ONE ×2 (16:19→17:51)
[2023-08-11] MEDS: NOREPINEPHRINE 8 MG/250ML KIT 250 ML IV SCH (16:47)
[2023-08-11] MEDS ORDERED: POTASSIUM CHL 20 Meq TABLET PO ONE (18:00)
[2023-08-11] MEDS: MUPIROCIN 2% OINT 15gm or 22gm FOR MRSA NARES EACHNOSTRI SCH (21:59)
[2023-08-11 23:32] LABS: INR 1.42 (0.9-1.15); Partial Thromboplastin Time 38.8 SEC (24.5-34.5); Prothrombin Time 14.6 sec (9.3-11.8)
[2023-08-12] VITALS (95 sets, daily range): BP systolic 79–114; BP diastolic 31–75; PULSE 90–143; RESP 12–30; TEMP 97.4–99.2; O2SAT 90–100
[2023-08-12] MEDS: MORPHINE SULFATE INJ 2 MG/ml SYRG IV PRN ×5 (00:15→21:16)
[2023-08-12] MEDS ORDERED: HEPARIN DRIP/D5W 100UNITS/ML 250 ML IV SCH ×5 (01:15→21:00)
[2023-08-12] MEDS: ALBUTEROL MEDNEB 2.5 mg/3ml NEB NEB SCH ×6 (01:44→21:46)
[2023-08-12] MEDS: IPRATROPIUM BROM 0.5 MG/2.5ML INH SOL NEB SCH ×6 (01:44→21:46)
[2023-08-12 05:09] LABS: INR 1.44 (0.9-1.15); Partial Thromboplastin Time 40.4 SEC (24.5-34.5); Prothrombin Time 14.8 sec (9.3-11.8)
[2023-08-12] MEDS: SALINE 0.65 % NASAL SPRAY 45ML BOTTLE EACHNOSTRI SCH ×4 (05:37→21:17)
[2023-08-12] MEDS: FUROSEMIDE 20 MG TAB PO SCH (05:40)
[2023-08-12] MEDS: DOBUTamine 1000MCG/ML 250 ML IV SCH (05:40)
[2023-08-12] MEDS: NOREPINEPHRINE 8 MG/250ML KIT 250 ML IV SCH (05:42)
[2023-08-12] MEDS: InsuLIN REG 1unit/0.01ml Soln (100units/ml) SC SCH ×4 (06:19→21:40)
[2023-08-12] MEDS: ACCU-CHEK COMFORT CURVE STRIP VI SCH ×4 (06:19→21:40)
[2023-08-12] MEDS: ONDANSETRON HCL 4 MG/2 ML VIAL IV PRN ×3 (08:25→21:16)
[2023-08-12] MEDS: SODIUM CHLOR 0.9% PF (SALINE LOCK) 10ML VIAL/SYR IV SCH ×2 (08:29→21:18)
[2023-08-12] MEDS: FAMOTIDINE 20 MG TAB PO SCH (08:29)
[2023-08-12] MEDS: ASPirin 81 mg TAB PO SCH (08:29)
[2023-08-12] MEDS: MAALOX PLUS or MAALOX 30 ML PO ONE ×2 (11:15→11:54)
[2023-08-12 12:00] LABS: Chloride 95 mmol/L (98-107); Potassium 3.2 mmol/L (3.5-5.1); Sodium 135 mmol/L (136-145)
[2023-08-12 12:01] LABS: Anion Gap 5 (5-15); Carbon Dioxide 35 mmol/L (20-30)
[2023-08-12 12:02] LABS: Calcium 7.8 mg/dL (8.7-10.4)
[2023-08-12 12:06] LABS: BUN/Creatinine Ratio 36.6 (10.0-20.0); Blood Urea Nitrogen 41 mg/dL (9-23); Glucose 121 mg/dL (74-106)
[2023-08-12] MEDS ORDERED: DIGOXIN (250MCG/ML) 2 ML AMPULE ONE (12:17)
[2023-08-12] MEDS ORDERED: DIGOXIN (250MCG/ML) 2 ML AMPULE IV ONE (12:30)
[2023-08-12] MEDS ORDERED: POTASSIUM EFFERVESENT TAB 25 MEQ PO ONE (12:30)
[2023-08-12 12:37] LABS: INR 1.56 (0.9-1.15); Partial Thromboplastin Time 47.7 SEC (24.5-34.5); Prothrombin Time 15.9 sec (9.3-11.8)
[2023-08-12] MEDS: MUPIROCIN 2% OINT 15gm or 22gm FOR MRSA NARES EACHNOSTRI SCH ×2 (14:03→21:17)
[2023-08-12] MEDS: POTASSIUM CHL 20MEQ/100ML 100 ML IV SCH ×3 (14:06→17:48)
[2023-08-12] MEDS: BUMETANIDE 2.5mg/10ml (0.25 mg/ml) INJ IV SCH (17:11)
[2023-08-12 19:53] LABS: Basophils # (auto) 0.1 10 ^3/uL (0-0.2); Eosinophils # (auto) 0.3 10 ^3/uL (0-0.8); Mean Corpuscular Hemoglobin 24.3 pg (28.0-32.0); Mean Corpuscular Hgb Conc. 30.9 g/dL (32.0-36.0); Monocytes # (auto) 0.9 10 ^3/uL (0-1.3)
[2023-08-12 19:55] LABS: Basophils % (auto) 0.6 % (0.0-2.0); Eosinophils % (auto) 2.9 % (0.0-7.0); Hematocrit 37.8 % (36.0-46.0); Hemoglobin 11.7 g/dL (12.2-16.2); Lymphocytes % (auto) 9.6 % (10.0-50.0); Mean Corpuscular Volume 78.6 fL (80.0-100.0); Monocytes % (auto) 9.5 % (0.0-12.0); Neutrophils # (auto) 7.7 10 ^3/uL (1.6-8.6); Neutrophils % (auto) 77.4 % (37.0-80.0); Nucleated Red Blood Cells % 1.2 %; Red Blood Cells 4.81 10^6/uL (4.0-5.20)
[2023-08-12 19:56] LABS: Red Cell Distribution Width 24.3 % (11.8-14.3)
[2023-08-12 20:11] LABS: INR 1.48 (0.9-1.15); Partial Thromboplastin Time 48.9 SEC (24.5-34.5); Prothrombin Time 15.1 sec (9.3-11.8)
[2023-08-12 20:54] LABS: Platelet Estimate Adequate
[2023-08-12 20:55] LABS: Anisocytosis Slight; Hypochromia Slight
[2023-08-13] VITALS (60 sets, daily range): BP systolic 64–106; BP diastolic 31–72; PULSE 100–133; RESP 12–29; TEMP 97.9–99; O2SAT 85–100
[2023-08-13] MEDS: ONDANSETRON HCL 4 MG/2 ML VIAL IV PRN ×5 (01:35→22:11)
[2023-08-13] MEDS: MORPHINE SULFATE INJ 2 MG/ml SYRG IV PRN ×6 (01:36→22:12)
[2023-08-13] MEDS: NOREPINEPHRINE 8 MG/250ML KIT 250 ML IV SCH (01:37)
[2023-08-13] MEDS: IPRATROPIUM BROM 0.5 MG/2.5ML INH SOL NEB SCH ×6 (02:00→22:00)
[2023-08-13] MEDS: ALBUTEROL MEDNEB 2.5 mg/3ml NEB NEB SCH ×6 (02:00→22:00)
[2023-08-13 03:15] LABS: INR 1.44 (0.9-1.15); Prothrombin Time 14.8 sec (9.3-11.8)
[2023-08-13] MEDS ORDERED: HEPARIN DRIP/D5W 100UNITS/ML 250 ML IV SCH (03:45)
[2023-08-13] MEDS: BUMETANIDE 2.5mg/10ml (0.25 mg/ml) INJ IV SCH ×2 (05:39→17:50)
[2023-08-13] MEDS: SALINE 0.65 % NASAL SPRAY 45ML BOTTLE EACHNOSTRI SCH ×4 (05:40→22:05)
[2023-08-13] MEDS: ACCU-CHEK COMFORT CURVE STRIP VI SCH ×4 (06:23→22:05)
[2023-08-13] MEDS: InsuLIN REG 1unit/0.01ml Soln (100units/ml) SC SCH ×4 (06:24→22:00)
[2023-08-13] MEDS ORDERED: POTASSIUM EFFERVESENT TAB 25 MEQ PO ONE (08:45)
[2023-08-13] MEDS ORDERED: ALBUTEROL SULF 2.5 MG/0.5ML(0.5%) NEB SOLN ONE ×2 (10:14→14:15)
[2023-08-13] MEDS ORDERED: APIXABAN 5 MG TAB PO ONE (10:15)
[2023-08-13] MEDS: FAMOTIDINE 20 MG TAB PO SCH (10:46)
[2023-08-13] MEDS: ASPirin 81 mg TAB PO SCH (10:46)
[2023-08-13] MEDS: DIGOXIN 0.125 MG TAB PO SCH (10:47)
[2023-08-13] MEDS: SODIUM CHLOR 0.9% PF (SALINE LOCK) 10ML VIAL/SYR IV SCH ×2 (10:50→22:04)
[2023-08-13] MEDS: MUPIROCIN 2% OINT 15gm or 22gm FOR MRSA NARES EACHNOSTRI SCH ×2 (10:50→22:05)
[2023-08-13 16:13] LABS: Chloride 92 mmol/L (98-107); Sodium 135 mmol/L (136-145)
[2023-08-13 16:15] LABS: Anion Gap 5 (5-15); Carbon Dioxide 38 mmol/L (20-30)
[2023-08-13 16:17] LABS: Calcium 7.8 mg/dL (8.7-10.4)
[2023-08-13 16:20] LABS: Potassium 3.8 mmol/L (3.5-5.1)
[2023-08-13 16:21] LABS: Glucose 124 mg/dL (74-106)
[2023-08-13 16:41] LABS: BUN/Creatinine Ratio 20.4 (10.0-20.0)
[2023-08-13 16:43] LABS: Blood Urea Nitrogen 21 mg/dL (9-23); Magnesium 1.3 mg/dL (1.6-2.6)
[2023-08-13] MEDS: MAGNESIUM SULFATE 1GM/100ML 100 ML IV SCH ×2 (19:58→21:18)
[2023-08-13] MEDS: APIXABAN 5 MG TAB PO SCH (22:04)
[2023-08-13] MEDS: SACUBITRIL-VALSARTAN 24mg/26mg TAB PO SCH (22:04)
[2023-08-14] VITALS (7 sets, daily range): BP systolic 94–97; BP diastolic 63–68; PULSE 115–122; RESP 20; TEMP 37.1; O2SAT 98–100
[2023-08-14] MEDS: IPRATROPIUM BROM 0.5 MG/2.5ML INH SOL NEB SCH ×4 (02:00→14:21)
[2023-08-14] MEDS: ALBUTEROL MEDNEB 2.5 mg/3ml NEB NEB SCH ×4 (02:00→14:21)
[2023-08-14] MEDS: ONDANSETRON HCL 4 MG/2 ML VIAL IV PRN ×2 (04:03→09:59)
[2023-08-14] MEDS: MORPHINE SULFATE INJ 2 MG/ml SYRG IV PRN ×2 (04:06→09:59)
[2023-08-14] MEDS: SALINE 0.65 % NASAL SPRAY 45ML BOTTLE EACHNOSTRI SCH ×2 (06:00→12:00)
[2023-08-14 06:04] LABS: Basophils # (auto) 0.1 10 ^3/uL (0-0.2); Basophils % (auto) 0.6 % (0.0-2.0); Eosinophils # (auto) 0.3 10 ^3/uL (0-0.8); Hemoglobin 11.3 g/dL (12.2-16.2); Monocytes # (auto) 1.2 10 ^3/uL (0-1.3); Monocytes % (auto) 11.5 % (0.0-12.0)
[2023-08-14 06:08] LABS: Eosinophils % (auto) 2.7 % (0.0-7.0); Hematocrit 36.1 % (36.0-46.0); Lymphocytes % (auto) 9.6 % (10.0-50.0); Mean Corpuscular Hemoglobin 24.3 pg (28.0-32.0); Mean Corpuscular Hgb Conc. 31.2 g/dL (32.0-36.0); Mean Corpuscular Volume 77.8 fL (80.0-100.0); Neutrophils # (auto) 8.1 10 ^3/uL (1.6-8.6); Neutrophils % (auto) 75.6 % (37.0-80.0); Nucleated Red Blood Cells % 0.4 %; Red Blood Cells 4.64 10^6/uL (4.0-5.20); White Blood Cell 10.7 10^3/uL (4.4-10.8)
[2023-08-14 06:27] LABS: Alanine Aminotransferase 20 U/L (7-40); Albumin 2.9 g/dL (3.2-4.8); Alkaline Phosphatase 149 U/L (46-116); Aspartate Aminotransferase 54 U/L (13-40); Chloride 91 mmol/L (98-107); Glucose 75 mg/dL (74-106); Magnesium 1.8 mg/dL (1.6-2.6); Potassium 3.6 mmol/L (3.5-5.1); Sodium 134 mmol/L (136-145)
[2023-08-14] MEDS: InsuLIN REG 1unit/0.01ml Soln (100units/ml) SC SCH ×2 (06:27→11:30)
[2023-08-14] MEDS: ACCU-CHEK COMFORT CURVE STRIP VI SCH ×2 (06:27→12:35)
[2023-08-14 06:28] LABS: Bilirubin, Total 4.4 mg/dL (0.2-1.0); Total Protein 6.1 g/dL (5.7-8.2)
[2023-08-14 06:31] LABS: Red Cell Distribution Width 23.7 % (11.8-14.3)
[2023-08-14 06:32] LABS: Anion Gap 4 (5-15); BUN/Creatinine Ratio 23.3 (10.0-20.0); Blood Urea Nitrogen 21 mg/dL (9-23); Carbon Dioxide 39 mmol/L (20-30)
[2023-08-14] MEDS ORDERED: ALBUTEROL SULF 2.5 MG/0.5ML(0.5%) NEB SOLN ONE ×2 (06:36→14:36)
[2023-08-14] MEDS: BUMETANIDE 2.5mg/10ml (0.25 mg/ml) INJ IV SCH (06:56)
[2023-08-14] MEDS ORDERED: EMPAGLIFLOZIN 10 MG TAB PO SCH (07:00)
[2023-08-14] MEDS: MUPIROCIN 2% OINT 15gm or 22gm FOR MRSA NARES EACHNOSTRI SCH (09:43)
[2023-08-14] MEDS: FAMOTIDINE 20 MG TAB PO SCH (09:44)
[2023-08-14] MEDS: ASPirin 81 mg TAB PO SCH (09:44)
[2023-08-14] MEDS: APIXABAN 5 MG TAB PO SCH (09:44)
[2023-08-14] MEDS: DIGOXIN 0.125 MG TAB PO SCH (09:45)
[2023-08-14] MEDS ORDERED: BUMETANIDE 2.5mg/10ml (0.25 mg/ml) INJ IV SCH (10:00)
[2023-08-14] MEDS: SODIUM CHLOR 0.9% PF (SALINE LOCK) 10ML VIAL/SYR IV SCH (10:00)
[2023-08-14] MEDS: SACUBITRIL-VALSARTAN 24mg/26mg TAB PO SCH (10:00)
[2023-08-14] MEDS ORDERED: APIX5TAB PO (10:49)
== END 2023-08-14 16:00 | disposition home or self-care (01) | DRG 279 ==
LOC: ER 05:35 → EDBD 05:35 → TELE 09:40 → TELE-EAST 09:46 → ICU CENTRL 08-09 18:58 → TELE-EAST 08-13 23:30
PROVIDERS: ADMIT Nurse Practitioner Family; ATTEND Family Medicine
PROC: 02HV33Z Insertion of Infusion Device into Superior Vena Cava, Percutaneous Approach (ICD-10-PCS; 2023-08-10)
PROC: 0W9G3ZZ Drainage of Peritoneal Cavity, Percutaneous Approach (ICD-10-PCS; principal; 2023-08-11)
DX: K72.90 Hepatic failure, unspecified without coma (principal); J96.01 Acute respiratory failure with hypoxia; R57.0 Cardiogenic shock; I50.23 Acute on chronic systolic (congestive) heart failure; E44.0 Moderate protein-calorie malnutrition; N17.9 Acute kidney failure, unspecified; E87.20 Acidosis, unspecified; D63.8 Anemia in other chronic diseases classified elsewhere; E83.39 Other disorders of phosphorus metabolism; N18.6 End stage renal disease; R18.8 Other ascites; K74.60 Unspecified cirrhosis of liver; I50.43 Acute on chronic combined systolic (congestive) and diastolic (congestive) heart failure; I82.411 Acute embolism and thrombosis of right femoral vein; I13.2 Hypertensive heart and chronic kidney disease with heart failure and with stage 5 chronic kidney disease, or end stage renal disease; I42.0 Dilated cardiomyopathy; I42.7 Cardiomyopathy due to drug and external agent; E87.5 Hyperkalemia; F15.10 Other stimulant abuse, uncomplicated; F17.200 Nicotine dependence, unspecified, uncomplicated; R74.01 Elevation of levels of liver transaminase levels; I36.1 Nonrheumatic tricuspid (valve) insufficiency; E11.22 Type 2 diabetes mellitus with diabetic chronic kidney disease; Z20.822 Contact with and (suspected) exposure to COVID-19; I44.7 Left bundle-branch block, unspecified; Z86.711 Personal history of pulmonary embolism; Z88.0 Allergy status to penicillin; Z88.8 Allergy status to other drugs, medicaments and biological substances; Z79.899 Other long term (current) drug therapy; Z79.82 Long term (current) use of aspirin; Z82.49 Family history of ischemic heart disease and other diseases of the circulatory system; Z83.3 Family history of diabetes mellitus; Z68.21 Body mass index [BMI] 21.0-21.9, adult; Z91.199 Patient's noncompliance with other medical treatment and regimen due to unspecified reason
CPT/HCPCS: 36415; 36569; 36600; 71045; 76700; 76705; 76942; 78582; 80048; 80053; 80074; 80307; 81001; 82140; 82248; 82570; 82805; 82962; 83605; 83690; 83735; 83880; 83930; 83970; 84100; 84132; 84156; 84300; 84484; 84702; 85007; 85025; 85027; 85379; 85610; 85730; 87040; 87081; 87426; 87804; 93005; 93970; 94640; 96374; 96375; 97110; 97116; 97163; G0378; J1815; J2405; J3480

== ENCOUNTER 2023-08-26 05:21 | Inpatient (IN) | payer MEDICAID ==
[~2023-08-26] VITALS: Ht 160 cm; Wt 61.4 kg
[2023-08-26 08:19] LABS: Eosinophils # (auto) 0.1 10 ^3/uL (0-0.8); Hemoglobin 10.4 g/dL (12.2-16.2); Neutrophils # (auto) 6.1 10 ^3/uL (1.6-8.6)
[2023-08-26 08:21] LABS: Basophils # (auto) 0.2 10 ^3/uL (0-0.2); Basophils % (auto) 1.8 % (0.0-2.0); Eosinophils % (auto) 1.2 % (0.0-7.0); Hematocrit 33.6 % (36.0-46.0); Lymphocytes # (auto) 1.5 10 ^3/uL (0.4-5.4); Lymphocytes % (auto) 17.5 % (10.0-50.0); Mean Corpuscular Hemoglobin 25.1 pg (28.0-32.0); Mean Corpuscular Hgb Conc. 30.9 g/dL (32.0-36.0); Mean Corpuscular Volume 81.2 fL (80.0-100.0); Monocytes # (auto) 0.5 10 ^3/uL (0-1.3); Monocytes % (auto) 5.5 % (0.0-12.0); Red Blood Cells 4.14 10^6/uL (4.0-5.20); White Blood Cell 8.3 10^3/uL (4.4-10.8)
[2023-08-26 08:23] LABS: Alanine Aminotransferase 32 U/L (7-40); Albumin 3.5 g/dL (3.2-4.8); Alkaline Phosphatase 189 U/L (46-116); Anion Gap 9 (5-15); Aspartate Aminotransferase 47 U/L (13-40); BUN/Creatinine Ratio 23.9 (10.0-20.0); Bilirubin, Total 2.6 mg/dL (0.2-1.0); Blood Urea Nitrogen 27 mg/dL (9-23); Calcium 8.7 mg/dL (8.5-10.1); Carbon Dioxide 27 mmol/L (20-30); Chloride 98 mmol/L (98-107); Glucose 71 mg/dL (74-106); Potassium 3.6 mmol/L (3.5-5.1); Sodium 134 mmol/L (136-145); Total Protein 7.4 g/dL (5.7-8.2)
[2023-08-26 08:29] LABS: Red Cell Distribution Width 23.7 % (11.8-14.3)
[2023-08-26 08:45] LABS: Lipase 20 U/L (12-53)
[2023-08-26 10:00] LABS: Anisocytosis Slight; Platelet Estimate Increased
[2023-08-26 10:44] LABS: INR 1.43 (0.9-1.15); Partial Thromboplastin Time 31.6 SEC (24.5-34.5); Prothrombin Time 14.7 sec (9.3-11.8)
[2023-08-26] MEDS ORDERED: NITROGLYCERIN 0.4 MG SL TAB SL PRN (14:45)
[2023-08-26] MEDS ORDERED: MORPHINE SULFATE INJ 2 MG/ml SYRG IV PRN (14:45)
[2023-08-26] MEDS ORDERED: ALBUMIN 5% 50 ML IV ONE (15:15)
[2023-08-26 20:02] VITALS: PULSE 102; RESP 20; O2SAT 100
[2023-08-26] MEDS: SPIRONOLACTONE 25 MG TAB PO SCH (20:03)
[2023-08-26] MEDS: BUMETANIDE 1 MG TAB PO SCH (20:03)
[2023-08-26] MEDS: FUROSEMIDE 40 MG/4 ML VIAL IV SCH (20:03)
[2023-08-26] MEDS: EMPAGLIFLOZIN 10 MG TAB PO SCH (20:04)
[2023-08-26] MEDS: MORPHINE SULFATE INJ 2 MG/ml SYRG IV PRN (20:11)
[2023-08-26] MEDS: ONDANSETRON HCL 4 MG/2 ML VIAL IV PRN (20:11)
[2023-08-26] MEDS: CARVEDILOL 3.125 MG TAB PO SCH (22:48)
[2023-08-26] MEDS: SACUBITRIL-VALSARTAN 24mg/26mg TAB PO SCH (22:48)
[2023-08-27] MEDS: ONDANSETRON HCL 4 MG/2 ML VIAL IV PRN (00:01)
[2023-08-27] MEDS: MORPHINE SULFATE INJ 2 MG/ml SYRG IV PRN (00:01)
[2023-08-27] MEDS: FUROSEMIDE 40 MG/4 ML VIAL IV SCH ×3 (06:00→10:00)
[2023-08-27] MEDS: BUMETANIDE 1 MG TAB PO SCH (06:00)
[2023-08-27 06:06] LABS: Basophils # (auto) 0.1 10 ^3/uL (0-0.2); Eosinophils # (auto) 0.1 10 ^3/uL (0-0.8); Hemoglobin 9.3 g/dL (12.2-16.2); Lymphocytes # (auto) 1.4 10 ^3/uL (0.4-5.4); Neutrophils % (auto) 75.2 % (37.0-80.0)
[2023-08-27 06:10] LABS: Eosinophils % (auto) 1.1 % (0.0-7.0); Hematocrit 30.2 % (36.0-46.0); Lymphocytes % (auto) 16.6 % (10.0-50.0); Mean Corpuscular Hemoglobin 24.5 pg (28.0-32.0); Mean Corpuscular Hgb Conc. 30.8 g/dL (32.0-36.0); Mean Corpuscular Volume 79.3 fL (80.0-100.0); Monocytes # (auto) 0.5 10 ^3/uL (0-1.3); Monocytes % (auto) 6.1 % (0.0-12.0); Neutrophils # (auto) 6.5 10 ^3/uL (1.6-8.6); Nucleated Red Blood Cells % 0.7 %; Red Blood Cells 3.81 10^6/uL (4.0-5.20); White Blood Cell 8.7 10^3/uL (4.4-10.8)
[2023-08-27 06:33] LABS: Alanine Aminotransferase 25 U/L (7-40); Albumin 2.8 g/dL (3.2-4.8); Alkaline Phosphatase 155 U/L (46-116); Anion Gap 10 (5-15); Aspartate Aminotransferase 35 U/L (13-40); BUN/Creatinine Ratio 24.3 (10.0-20.0); Blood Urea Nitrogen 28 mg/dL (9-23); Calcium 8.2 mg/dL (8.5-10.1); Carbon Dioxide 28 mmol/L (20-30); Chloride 97 mmol/L (98-107); Glucose 94 mg/dL (74-106); Potassium 3.1 mmol/L (3.5-5.1); Sodium 135 mmol/L (136-145)
[2023-08-27 07:00] VITALS: TEMP 98.1
[2023-08-27] MEDS: EMPAGLIFLOZIN 10 MG TAB PO SCH (07:09)
[2023-08-27 07:40] VITALS: PULSE 82; RESP 21; O2SAT 94
[2023-08-27] MEDS ORDERED: POTASSIUM CHL 20 Meq TABLET PO ONE (08:30)
[2023-08-27] MEDS: ALBUMIN 25% 100 ML IV SCH ×2 (09:51→10:25)
[2023-08-27 10:00] VITALS: BP 89/54; PULSE 83; RESP 22; O2SAT 98
[2023-08-27] MEDS: SPIRONOLACTONE 25 MG TAB PO SCH (10:00)
[2023-08-27] MEDS: SACUBITRIL-VALSARTAN 24mg/26mg TAB PO SCH (10:00)
[2023-08-27] MEDS: CARVEDILOL 3.125 MG TAB PO SCH (10:00)
[2023-08-27 15:07] LABS: Body Fluid Polymorphonuclear 12 % (0-25); Body Fluid Red Blood Cells 763 CUMM (0-2000); Body Fluid White Blood Cells 115 CUMM (0-200)
[2023-08-28 10:07] LABS: Protein, Body Fluid 2.7 g/dL (.)
== END 2023-08-27 11:08 | disposition home or self-care (01) ==
LOC: EDBD 05:21 → ER 05:21 → OVERFLOW 14:56
PROVIDERS: ADMIT Internal Medicine; ATTEND Internal Medicine
PROC: 0W9G3ZZ Drainage of Peritoneal Cavity, Percutaneous Approach (ICD-10-PCS; principal; 2023-08-27)
DX: K74.60 Unspecified cirrhosis of liver (principal); N17.0 Acute kidney failure with tubular necrosis; K76.7 Hepatorenal syndrome; I50.23 Acute on chronic systolic (congestive) heart failure; R18.8 Other ascites; I42.9 Cardiomyopathy, unspecified; I27.20 Pulmonary hypertension, unspecified; K76.9 Liver disease, unspecified; N18.9 Chronic kidney disease, unspecified; R74.01 Elevation of levels of liver transaminase levels; E87.6 Hypokalemia; E80.6 Other disorders of bilirubin metabolism
CPT/HCPCS: 36415; 71045; 76705; 76942; 80053; 82140; 83690; 83880; 83986; 85025; 85610; 85730; 87205; 89051; 99291; G0378; J2405; P9047

== ENCOUNTER 2023-09-02 04:45 | Inpatient (IN) | payer MEDICAID ==
[~2023-09-02] VITALS: Ht 160 cm; Wt 64.0 kg
[2023-09-02 08:55] LABS: Basophils # (auto) 0.1 10 ^3/uL (0-0.2); Eosinophils # (auto) 0.1 10 ^3/uL (0-0.8); Mean Corpuscular Hemoglobin 24.7 pg (28.0-32.0); Mean Corpuscular Hgb Conc. 30.6 g/dL (32.0-36.0); Mean Corpuscular Volume 80.7 fL (80.0-100.0); Neutrophils # (auto) 4.7 10 ^3/uL (1.6-8.6)
[2023-09-02 08:57] LABS: Basophils % (auto) 1.4 % (0.0-2.0); Eosinophils % (auto) 1.5 % (0.0-7.0); Hematocrit 31.5 % (36.0-46.0); Hemoglobin 9.6 g/dL (12.2-16.2); Lymphocytes # (auto) 1.4 10 ^3/uL (0.4-5.4); Lymphocytes % (auto) 21.1 % (10.0-50.0); Monocytes # (auto) 0.3 10 ^3/uL (0-1.3); Monocytes % (auto) 5.2 % (0.0-12.0); Neutrophils % (auto) 70.8 % (37.0-80.0); Nucleated Red Blood Cells % 0.4 %; White Blood Cell 6.7 10^3/uL (4.4-10.8)
[2023-09-02 08:58] LABS: Red Cell Distribution Width 23.5 % (11.8-14.3)
[2023-09-02 09:12] LABS: Alanine Aminotransferase 21 U/L (7-40); Albumin 3.2 g/dL (3.2-4.8); Alkaline Phosphatase 149 U/L (46-116); Anion Gap 8 (5-15); Aspartate Aminotransferase 34 U/L (13-40); Blood Urea Nitrogen 30 mg/dL (9-23); Calcium 8.4 mg/dL (8.5-10.1); Carbon Dioxide 26 mmol/L (20-30); Chloride 103 mmol/L (98-107); Glucose 92 mg/dL (74-106); Potassium 3.7 mmol/L (3.5-5.1); Sodium 137 mmol/L (136-145)
[2023-09-02 09:13] LABS: Bilirubin, Total 1.7 mg/dL (0.2-1.0); Total Protein 6.1 g/dL (5.7-8.2)
[2023-09-02] MEDS ORDERED: FUROSEMIDE 40 MG/4 ML VIAL IV ONE (09:30)
[2023-09-02] MEDS ORDERED: IOHEXOL 350 MG/ML 100ML IJ ONE (09:36)
[2023-09-02 12:19] LABS: Urine Bacteria FEW /hpf (None Seen); Urine Blood Negative /uL (Negative); Urine Clarity Clear (Clear); Urine Color Yellow (Yellow); Urine Hyaline Cast MANY /lpf (0 - 2); Urine Mucus FEW (None Seen); Urine Protein, UAD 1+ (Negative); Urine Specific Gravity 1.022 (1.001-1.035); Urine WBC 3 /hpf (0 - 5); Urine pH 5.5 (5.0-8.0)
[2023-09-02 13:00] VITALS: PULSE 95; RESP 24; O2SAT 98
[2023-09-02] MEDS ORDERED: NITROGLYCERIN 0.4 MG SL TAB SL PRN (14:30)
[2023-09-02] MEDS ORDERED: SPIRONOLACTONE 25 MG TAB PO ONE (14:45)
[2023-09-02] MEDS ORDERED: cefTRIAXone 1GM/50ML D5W 50 ML IV ONE (15:15)
[2023-09-02] MEDS ORDERED: DOXYCYCLINE 100 MG TAB/CAP PO ONE (15:15)
[2023-09-02 15:36] LABS: INR 1.38 (0.9-1.15); Partial Thromboplastin Time 28.6 SEC (24.5-34.5); Prothrombin Time 14.2 sec (9.3-11.8)
[2023-09-02] MEDS ORDERED: ACETAMINOPHEN 325 MG TAB PO PRN (16:45)
[2023-09-02] MEDS ORDERED: LACTULOSE 20Gm/30ML SOLN PO ONE (16:45)
[2023-09-02 17:51] LABS: % Iron Saturation 10.1 % (15-50)
[2023-09-02] MEDS: MORPHINE SULFATE INJ 2 MG/ml SYRG IV PRN (17:52)
[2023-09-02] MEDS: SPIRONOLACTONE 25 MG TAB PO SCH (18:00)
[2023-09-02 18:24] LABS: Folate (Folic Acid) 20.62 ng/mL (>5.38)
[2023-09-02 19:45] VITALS: PULSE 100; RESP 23; O2SAT 98
[2023-09-02] MEDS: FUROSEMIDE 40 MG/4 ML VIAL IV SCH (20:18)
[2023-09-02] MEDS: traMADol HCL 50 MG TAB PO PRN (20:35)
[2023-09-02] MEDS ORDERED: ENOXAPARIN SOD 80 MG/0.8ML SYRINGE SC SCH (22:00)
[2023-09-02 22:20] VITALS: PULSE 101
[2023-09-02] MEDS: DOXYCYCLINE 100 MG TAB/CAP PO SCH (22:55)
[2023-09-02 23:01] VITALS: BP 99/70; PULSE 98; RESP 19; TEMP 97.6; O2SAT 100
[2023-09-03] VITALS (9 sets, daily range): BP systolic 88–102; BP diastolic 61–75; PULSE 88–101; RESP 18–22; TEMP 95.2–98.6; O2SAT 90–99
[2023-09-03] MEDS: traMADol HCL 50 MG TAB PO PRN ×2 (00:04→19:11)
[2023-09-03] MEDS: MORPHINE SULFATE INJ 2 MG/ml SYRG IV PRN ×3 (00:47→21:30)
[2023-09-03] MEDS: SPIRONOLACTONE 25 MG TAB PO SCH ×3 (06:29→21:35)
[2023-09-03] MEDS: FUROSEMIDE 40 MG/4 ML VIAL IV SCH ×2 (06:29→18:56)
[2023-09-03] MEDS: EMPAGLIFLOZIN 10 MG TAB PO SCH (06:29)
[2023-09-03 06:47] LABS: Basophils # (auto) 0.1 10 ^3/uL (0-0.2); Eosinophils # (auto) 0.1 10 ^3/uL (0-0.8); Hemoglobin 9.2 g/dL (12.2-16.2); Mean Corpuscular Hemoglobin 24.6 pg (28.0-32.0); Monocytes # (auto) 0.4 10 ^3/uL (0-1.3)
[2023-09-03 06:50] LABS: Basophils % (auto) 1.3 % (0.0-2.0); Eosinophils % (auto) 1.7 % (0.0-7.0); Hematocrit 30.2 % (36.0-46.0); Lymphocytes # (auto) 1.7 10 ^3/uL (0.4-5.4); Lymphocytes % (auto) 23.9 % (10.0-50.0); Mean Corpuscular Hgb Conc. 30.4 g/dL (32.0-36.0); Mean Corpuscular Volume 80.8 fL (80.0-100.0); Monocytes % (auto) 5.5 % (0.0-12.0); Neutrophils # (auto) 4.7 10 ^3/uL (1.6-8.6); Neutrophils % (auto) 67.6 % (37.0-80.0); Nucleated Red Blood Cells % 0.3 %; Red Blood Cells 3.74 10^6/uL (4.0-5.20); Red Cell Distribution Width 24.2 % (11.8-14.3)
[2023-09-03 07:07] LABS: Alanine Aminotransferase 20 U/L (7-40); Albumin 3.1 g/dL (3.2-4.8); Alkaline Phosphatase 150 U/L (46-116); Anion Gap 10 (5-15); Aspartate Aminotransferase 39 U/L (13-40); BUN/Creatinine Ratio 17.9 (10.0-20.0); Bilirubin, Total 1.6 mg/dL (0.2-1.0); Blood Urea Nitrogen 21 mg/dL (9-23); Calcium 8.1 mg/dL (8.7-10.4); Carbon Dioxide 26 mmol/L (20-30); Chloride 100 mmol/L (98-107); Glucose 97 mg/dL (74-106); Potassium 3.2 mmol/L (3.5-5.1); Sodium 136 mmol/L (136-145)
[2023-09-03 07:08] LABS: Total Protein 6.3 g/dL (5.7-8.2)
[2023-09-03] MEDS ORDERED: POTASSIUM CHL 20 Meq TABLET PO ONE (07:30)
[2023-09-03 07:32] LABS: LDL Cholesterol 82 mg/dL (< 100); Triglycerides 85 mg/dL (< 150)
[2023-09-03 07:34] LABS: Cholesterol 100 mg/dL (< 200); HDL Cholesterol 16 mg/dL (40-59)
[2023-09-03] MEDS: FERROUS SULFATE 325mg EC TAB PO SCH ×2 (08:34→12:13)
[2023-09-03] MEDS ORDERED: cefTRIAXone 1GM/50ML D5W 50 ML IV SCH (09:00)
[2023-09-03] MEDS ORDERED: LACTULOSE 20Gm/30ML SOLN PO SCH (10:00)
[2023-09-03] MEDS: DOXYCYCLINE 100 MG TAB/CAP PO SCH ×2 (10:35→21:35)
[2023-09-03] MEDS: LACTULOSE 20Gm/30ML SOLN PO SCH ×2 (10:36→21:38)
[2023-09-03] MEDS ORDERED: ALB2.5IS NEB (11:06)
[2023-09-03] MEDS ORDERED: HYDR-4902 PO (11:18)
[2023-09-03] MEDS ORDERED: DOCU-94 PO (11:19)
[2023-09-03] MEDS ORDERED: ALBUMIN 5% 50 ML IV ONE (14:15)
[2023-09-03] MEDS ORDERED: IRON SUCROSE COMPLEX 100 ML IV SCH (15:45)
[2023-09-03] MEDS: SODIUM FERR GLUC 125 MG in NS 100 ML IV SCH (19:06)
[2023-09-03] MEDS: APIXABAN 5 MG TAB PO SCH (21:35)
[2023-09-04] VITALS (7 sets, daily range): BP systolic 99–133; BP diastolic 71–83; PULSE 67–130; RESP 15–22; TEMP 97.7–99; O2SAT 95–100
[2023-09-04 05:47] LABS: Basophils # (auto) 0.1 10 ^3/uL (0-0.2); Hemoglobin 9.4 g/dL (12.2-16.2); Lymphocytes # (auto) 1.4 10 ^3/uL (0.4-5.4); Mean Corpuscular Hgb Conc. 30.8 g/dL (32.0-36.0); Monocytes # (auto) 0.4 10 ^3/uL (0-1.3); Neutrophils # (auto) 4.9 10 ^3/uL (1.6-8.6); White Blood Cell 6.9 10^3/uL (4.4-10.8)
[2023-09-04 05:50] LABS: Basophils % (auto) 1.4 % (0.0-2.0); Eosinophils # (auto) 0 10 ^3/uL (0-0.8); Eosinophils % (auto) 0.7 % (0.0-7.0); Hematocrit 30.6 % (36.0-46.0); Lymphocytes % (auto) 20.4 % (10.0-50.0); Mean Corpuscular Hemoglobin 24.8 pg (28.0-32.0); Mean Corpuscular Volume 80.4 fL (80.0-100.0); Neutrophils % (auto) 71.5 % (37.0-80.0); Nucleated Red Blood Cells % 2.6 %; Red Blood Cells 3.81 10^6/uL (4.0-5.20)
[2023-09-04 05:52] LABS: Red Cell Distribution Width 23.5 % (11.8-14.3)
[2023-09-04 06:00] LABS: Alanine Aminotransferase 19 U/L (7-40); Alkaline Phosphatase 140 U/L (46-116); Anion Gap 9 (5-15); BUN/Creatinine Ratio 19.1 (10.0-20.0); Blood Urea Nitrogen 25 mg/dL (9-23); Calcium 8.5 mg/dL (8.7-10.4); Carbon Dioxide 25 mmol/L (20-30); Chloride 101 mmol/L (98-107); Glucose 77 mg/dL (74-106); Magnesium 2.1 mg/dL (1.6-2.6); Sodium 135 mmol/L (136-145)
[2023-09-04 06:01] LABS: Albumin 3.2 g/dL (3.2-4.8); Aspartate Aminotransferase 37 U/L (13-40); Bilirubin, Total 1.9 mg/dL (0.2-1.0)
[2023-09-04 06:02] LABS: Total Protein 6.3 g/dL (5.7-8.2)
[2023-09-04] MEDS: FUROSEMIDE 40 MG/4 ML VIAL IV SCH (06:14)
[2023-09-04] MEDS: EMPAGLIFLOZIN 10 MG TAB PO SCH (06:15)
[2023-09-04] MEDS: MORPHINE SULFATE INJ 2 MG/ml SYRG IV PRN ×2 (06:17→14:25)
[2023-09-04] MEDS ORDERED: ALBUMIN 5% 50 ML IV ONE (07:30)
[2023-09-04] MEDS ORDERED: SPIRONOLACTONE 25 MG TAB PO SCH ×2 (10:00→22:00)
[2023-09-04] MEDS ORDERED: FUROSEMIDE 40 MG/4 ML VIAL IV SCH ×2 (10:00→22:00)
[2023-09-04] MEDS ORDERED: MEROPENEM 1GM IVPB 100 ML IV ONE (10:15)
[2023-09-04] MEDS ORDERED: ERTAPENEM SOD INJ 1 GM in SODIUM CHL 0.9% 50 ML IV ONE (10:30)
[2023-09-04] MEDS: APIXABAN 5 MG TAB PO SCH ×2 (10:37→21:40)
[2023-09-04] MEDS: DOXYCYCLINE 100 MG TAB/CAP PO SCH (10:37)
[2023-09-04] MEDS: LACTULOSE 20Gm/30ML SOLN PO SCH ×3 (12:00→21:32)
[2023-09-04] MEDS: SODIUM FERR GLUC 125 MG in NS 100 ML IV SCH (12:54)
[2023-09-04] MEDS ORDERED: MEROPENEM 1GM IVPB 100 ML IV SCH (14:00)
[2023-09-04] MEDS ORDERED: ALBUMIN 25% 100 ML IV SCH (17:00)
[2023-09-04] MEDS: ALBUMIN 25% 100 ML IV SCH (18:33)
[2023-09-04] MEDS: traMADol HCL 50 MG TAB PO PRN (20:19)
[2023-09-04] MEDS ORDERED: HYDROmorphone HCL 2 MG/ML VL/or syr IV ONE (22:45)
[2023-09-05] VITALS (10 sets, daily range): BP systolic 95–135; BP diastolic 51–73; PULSE 91–154; RESP 17–20; TEMP 98–98.6; O2SAT 96–100
[2023-09-05] MEDS: ALBUMIN 25% 100 ML IV SCH ×2 (02:23→09:38)
[2023-09-05] MEDS: traMADol HCL 50 MG TAB PO PRN ×3 (04:35→21:36)
[2023-09-05] MEDS: LACTULOSE 20Gm/30ML SOLN PO SCH ×4 (06:00→21:38)
[2023-09-05] MEDS: EMPAGLIFLOZIN 10 MG TAB PO SCH (06:11)
[2023-09-05 06:43] LABS: Eosinophils # (auto) 0 10 ^3/uL (0-0.8); Monocytes # (auto) 0.4 10 ^3/uL (0-1.3)
[2023-09-05 06:45] LABS: Basophils # (auto) 0 10 ^3/uL (0-0.2); Basophils % (auto) 0.5 % (0.0-2.0); Eosinophils % (auto) 0.1 % (0.0-7.0); Hematocrit 30.5 % (36.0-46.0); Hemoglobin 9.4 g/dL (12.2-16.2); Lymphocytes # (auto) 0.6 10 ^3/uL (0.4-5.4); Lymphocytes % (auto) 6.1 % (10.0-50.0); Mean Corpuscular Hemoglobin 24.7 pg (28.0-32.0); Mean Corpuscular Hgb Conc. 30.9 g/dL (32.0-36.0); Mean Corpuscular Volume 79.9 fL (80.0-100.0); Monocytes % (auto) 4.9 % (0.0-12.0); Neutrophils % (auto) 88.4 % (37.0-80.0); Nucleated Red Blood Cells % 4.1 %; Red Blood Cells 3.82 10^6/uL (4.0-5.20); Red Cell Distribution Width 23.5 % (11.8-14.3)
[2023-09-05 06:56] LABS: INR 2.21 (0.9-1.15); Partial Thromboplastin Time 38.1 SEC (24.5-34.5)
[2023-09-05 07:04] LABS: Alanine Aminotransferase 16 U/L (7-40); Albumin 3.8 g/dL (3.2-4.8); Alkaline Phosphatase 117 U/L (46-116); Anion Gap 12 (5-15); Aspartate Aminotransferase 33 U/L (13-40); BUN/Creatinine Ratio 16.6 (10.0-20.0); Blood Urea Nitrogen 29 mg/dL (9-23); Carbon Dioxide 24 mmol/L (20-30); Chloride 100 mmol/L (98-107); Glucose 102 mg/dL (74-106); Magnesium 2.1 mg/dL (1.6-2.6); Sodium 136 mmol/L (136-145)
[2023-09-05 07:05] LABS: Bilirubin, Total 2.8 mg/dL (0.2-1.0); Total Protein 6.8 g/dL (5.7-8.2)
[2023-09-05] MEDS: APIXABAN 5 MG TAB PO SCH (09:41)
[2023-09-05] MEDS ORDERED: SPIRONOLACTONE 25 MG TAB PO SCH (10:00)
[2023-09-05] MEDS ORDERED: FUROSEMIDE 40 MG/4 ML VIAL IV SCH (10:00)
[2023-09-05] MEDS: ERTAPENEM SOD INJ 1 GM in SODIUM CHL 0.9% 50 ML IV SCH (11:44)
[2023-09-05] MEDS: MIDODRINE HCL 10 MG TAB PO SCH ×2 (11:44→18:00)
[2023-09-05] MEDS: SODIUM FERR GLUC 125 MG in NS 100 ML IV SCH (13:27)
[2023-09-05 17:02] LABS: Alanine Aminotransferase 18 U/L (7-40); Albumin 3.9 g/dL (3.2-4.8); Alkaline Phosphatase 106 U/L (46-116); Anion Gap 12 (5-15); Aspartate Aminotransferase 40 U/L (13-40); BUN/Creatinine Ratio 21.7 (10.0-20.0); Calcium 9.2 mg/dL (8.7-10.4); Carbon Dioxide 24 mmol/L (20-30); Chloride 100 mmol/L (98-107); Glucose 110 mg/dL (74-106); Magnesium 2.1 mg/dL (1.6-2.6); Potassium 4.7 mmol/L (3.5-5.1); Sodium 136 mmol/L (136-145)
[2023-09-05 17:03] LABS: Bilirubin, Total 2.8 mg/dL (0.2-1.0); Total Protein 6.6 g/dL (5.7-8.2)
[2023-09-05 17:06] LABS: Blood Urea Nitrogen 45 mg/dL (9-23)
[2023-09-05] MEDS: ENOXAPARIN SOD 80 MG/0.8ML SYRINGE SC SCH (21:38)
[2023-09-06] VITALS (10 sets, daily range): BP systolic 88–175; BP diastolic 61–127; PULSE 63–102; RESP 10–20; TEMP 97.4–98.9; O2SAT 90–100
[2023-09-06] MEDS: MIDODRINE HCL 10 MG TAB PO SCH ×3 (05:15→18:16)
[2023-09-06] MEDS: LACTULOSE 20Gm/30ML SOLN PO SCH ×4 (05:15→22:00)
[2023-09-06] MEDS: EMPAGLIFLOZIN 10 MG TAB PO SCH (06:20)
[2023-09-06] MEDS: traMADol HCL 50 MG TAB PO PRN ×2 (06:49→16:09)
[2023-09-06 10:09] LABS: Basophils # (auto) 0.1 10 ^3/uL (0-0.2); Basophils % (auto) 0.9 % (0.0-2.0); Eosinophils # (auto) 0 10 ^3/uL (0-0.8); Hemoglobin 9.2 g/dL (12.2-16.2); Lymphocytes # (auto) 0.5 10 ^3/uL (0.4-5.4); Monocytes # (auto) 0.4 10 ^3/uL (0-1.3); Neutrophils # (auto) 5.6 10 ^3/uL (1.6-8.6)
[2023-09-06 10:16] LABS: Hematocrit 29.8 % (36.0-46.0); Lymphocytes % (auto) 8.1 % (10.0-50.0); Mean Corpuscular Hemoglobin 24.8 pg (28.0-32.0); Monocytes % (auto) 5.9 % (0.0-12.0); Neutrophils % (auto) 85.1 % (37.0-80.0); Nucleated Red Blood Cells % 6.2 %; Red Blood Cells 3.72 10^6/uL (4.0-5.20); Red Cell Distribution Width 23.8 % (11.8-14.3); White Blood Cell 6.6 10^3/uL (4.4-10.8)
[2023-09-06] MEDS: ERTAPENEM SOD INJ 1 GM in SODIUM CHL 0.9% 50 ML IV SCH (10:19)
[2023-09-06] MEDS: ENOXAPARIN SOD 80 MG/0.8ML SYRINGE SC SCH (10:19)
[2023-09-06 10:25] LABS: Alanine Aminotransferase 20 U/L (7-40); Albumin 3.6 g/dL (3.2-4.8); Alkaline Phosphatase 99 U/L (46-116); Anion Gap 12 (5-15); Aspartate Aminotransferase 66 U/L (13-40); BUN/Creatinine Ratio 23.4 (10.0-20.0); Bilirubin, Total 2.5 mg/dL (0.2-1.0); Blood Urea Nitrogen 52 mg/dL (9-23); Calcium 8.9 mg/dL (8.7-10.4); Carbon Dioxide 24 mmol/L (20-30); Chloride 100 mmol/L (98-107); Glucose 117 mg/dL (74-106); Magnesium 2.2 mg/dL (1.6-2.6); Potassium 4.5 mmol/L (3.5-5.1); Sodium 136 mmol/L (136-145); Total Protein 6.2 g/dL (5.7-8.2)
[2023-09-06] MEDS: SODIUM FERR GLUC 125 MG in NS 100 ML IV SCH (12:25)
[2023-09-06] MEDS ORDERED: FAMOTIDINE (10MG/ML) 2ML VL IV ONE (15:30)
[2023-09-06] MEDS ORDERED: ASPirin 81 mg TAB PO ONE (15:30)
[2023-09-06] MEDS ORDERED: SPIRONOLACTONE 25 MG TAB PO ONE (16:30)
[2023-09-06] MEDS ORDERED: OCTREOTIDE ACETATE 100 MCG/ML VL SUBCUT ONE (16:30)
[2023-09-06] MEDS ORDERED: METOPROLOL TARTRATE 25 MG TAB PO ONE (16:30)
[2023-09-06] MEDS ORDERED: FUROSEMIDE 40 MG/4 ML VIAL IV ONE (16:30)
[2023-09-06] MEDS: DOPamine 1600MCG/ML D5W 250 ML IV SCH (18:16)
[2023-09-06 18:40] LABS: Base Excess -0.6 mmol/L (-2.0-2.0)
[2023-09-06] MEDS ORDERED: ONDANSETRON HCL 4 MG/2 ML VIAL IV PRN (20:45)
[2023-09-06] MEDS: OCTREOTIDE ACETATE 100 MCG/ML VL SUBCUT SCH (22:00)
[2023-09-07] VITALS (21 sets, daily range): BP systolic 83–114; BP diastolic 56–82; PULSE 57–96; RESP 9–26; TEMP 97.7–99.2; O2SAT 82–100
[2023-09-07] MEDS: LACTULOSE 20Gm/30ML SOLN PO SCH ×4 (00:58→22:00)
[2023-09-07] MEDS: traMADol HCL 50 MG TAB PO PRN ×2 (00:58→22:07)
[2023-09-07] MEDS: MORPHINE SULFATE INJ 2 MG/ml SYRG IV PRN (04:52)
[2023-09-07 05:26] LABS: Hemoglobin 9.5 g/dL (12.2-16.2)
[2023-09-07 05:29] LABS: Hematocrit 30.8 % (36.0-46.0); Mean Corpuscular Hemoglobin 25.1 pg (28.0-32.0); Mean Corpuscular Hgb Conc. 30.9 g/dL (32.0-36.0); Mean Corpuscular Volume 81.3 fL (80.0-100.0); Red Blood Cells 3.78 10^6/uL (4.0-5.20); White Blood Cell 5.5 10^3/uL (4.4-10.8)
[2023-09-07 05:34] LABS: Basophils % (manual) 0 (0.0-2.0); Blast Cells 0; Eosinophils % (manual) 0 (0-7); Metamyelocytes % 0; Myelocytes % 0; Promyelocytes % 0; Reactive Lymphocytes 0; Red Cell Distribution Width 23.8 % (11.8-14.3)
[2023-09-07 05:44] LABS: Alanine Aminotransferase 19 U/L (7-40); Alkaline Phosphatase 105 U/L (46-116); Anion Gap 10 (5-15); Calcium 8.9 mg/dL (8.7-10.4); Carbon Dioxide 25 mmol/L (20-30); Chloride 100 mmol/L (98-107); Glucose 74 mg/dL (74-106); Magnesium 2.2 mg/dL (1.6-2.6); Potassium 4.7 mmol/L (3.5-5.1); Sodium 135 mmol/L (136-145)
[2023-09-07 05:45] LABS: Albumin 3.5 g/dL (3.2-4.8); Aspartate Aminotransferase 85 U/L (13-40); BUN/Creatinine Ratio 19.5 (10.0-20.0); Total Protein 6.5 g/dL (5.7-8.2)
[2023-09-07 05:54] LABS: Blood Urea Nitrogen 40 mg/dL (9-23)
[2023-09-07] MEDS: EMPAGLIFLOZIN 10 MG TAB PO SCH (07:00)
[2023-09-07] MEDS: MIDODRINE HCL 10 MG TAB PO SCH ×3 (08:08→17:34)
[2023-09-07] MEDS: OCTREOTIDE ACETATE 100 MCG/ML VL SUBCUT SCH ×3 (08:08→22:00)
[2023-09-07 08:11] LABS: Anisocytosis Moderate; Band Neutrophils % (manual) 5; Hypochromia Slight; Lymphocytes % (manual) 11 (10.0-50.0); Monocytes % (manual) 5 (0-12); Platelet Estimate Adequate
[2023-09-07] MEDS: FAMOTIDINE (10MG/ML) 2ML VL IV SCH (08:41)
[2023-09-07] MEDS: METOPROLOL SUCCINATE XL 50 MG TAB PO SCH (08:46)
[2023-09-07] MEDS ORDERED: ERTAPENEM SOD INJ 0.5 GM in SODIUM CHL 0.9% 50 ML IV SCH (10:00)
[2023-09-07] MEDS ORDERED: ENOXAPARIN SOD 80 MG/0.8ML SYRINGE SC SCH (10:00)
[2023-09-07] MEDS ORDERED: ASPirin 81 mg TAB PO SCH (10:00)
[2023-09-07] MEDS ORDERED: SPIRONOLACTONE 25 MG TAB PO SCH (10:00)
[2023-09-07] MEDS ORDERED: FUROSEMIDE 40 MG/4 ML VIAL IV SCH ×2 (10:00→23:00)
[2023-09-07] MEDS ORDERED: METOPROLOL TARTRATE 25 MG TAB PO SCH (10:00)
[2023-09-07] MEDS: SODIUM FERR GLUC 125 MG in NS 100 ML IV SCH (11:32)
[2023-09-07] MEDS: HYDROcodone-ACET 10/325MG TAB PO SCH ×2 (12:07→17:35)
[2023-09-07 12:51] LABS: Protein, Urine 46.2 mg/dL (0.0-11.9)
[2023-09-07 12:54] LABS: Creatinine, Urine 58.26 mg/dL (30.0-125.0)
[2023-09-07] MEDS: ALBUMIN 25% 100 ML IV SCH ×2 (13:51→23:30)
[2023-09-07] MEDS: FUROSEMIDE 40 MG/4 ML VIAL IV SCH ×2 (14:00→22:00)
[2023-09-07] MEDS ORDERED: ALBUTEROL SULF 2.5 MG/0.5ML(0.5%) NEB SOLN NEB PRN (15:00)
[2023-09-07] MEDS ORDERED: IPRATROPIUM BROM 0.5 MG/2.5ML INH SOL NEB PRN (15:00)
[2023-09-07] MEDS ORDERED: ALBUMIN 25% 100 ML IV SCH (22:00)
[2023-09-08] VITALS (17 sets, daily range): BP systolic 91–127; BP diastolic 52–87; PULSE 71–95; RESP 12–22; TEMP 97.5–99.2; O2SAT 90–99
[2023-09-08] MEDS: HYDROcodone-ACET 10/325MG TAB PO SCH ×3 (04:17→18:21)
[2023-09-08] MEDS ORDERED: NITROGLYCERIN 2% OINT 1GM PKG TD ONE (05:45)
[2023-09-08 06:13] LABS: Eosinophils # (auto) 0 10 ^3/uL (0-0.8); Mean Corpuscular Volume 83.7 fL (80.0-100.0)
[2023-09-08 06:14] LABS: Basophils # (auto) 0.1 10 ^3/uL (0-0.2); Basophils % (auto) 0.9 % (0.0-2.0); Eosinophils % (auto) 0.2 % (0.0-7.0); Hematocrit 32.3 % (36.0-46.0); Hemoglobin 9.7 g/dL (12.2-16.2); Lymphocytes # (auto) 0.8 10 ^3/uL (0.4-5.4); Lymphocytes % (auto) 14.4 % (10.0-50.0); Mean Corpuscular Hemoglobin 25.1 pg (28.0-32.0); Mean Corpuscular Hgb Conc. 29.9 g/dL (32.0-36.0); Monocytes # (auto) 0.2 10 ^3/uL (0-1.3); Monocytes % (auto) 4.3 % (0.0-12.0); Neutrophils # (auto) 4.6 10 ^3/uL (1.6-8.6); Neutrophils % (auto) 80.2 % (37.0-80.0); Nucleated Red Blood Cells % 14.7 %; Red Blood Cells 3.85 10^6/uL (4.0-5.20); Red Cell Distribution Width 23.4 % (11.8-14.3); White Blood Cell 5.7 10^3/uL (4.4-10.8)
[2023-09-08 06:28] LABS: Alanine Aminotransferase 19 U/L (7-40); Alkaline Phosphatase 90 U/L (46-116); Anion Gap 13 (5-15); BUN/Creatinine Ratio 26.9 (10.0-20.0); Calcium 8.4 mg/dL (8.7-10.4); Carbon Dioxide 25 mmol/L (20-30); Chloride 99 mmol/L (98-107); Glucose 74 mg/dL (74-106); Magnesium 2.2 mg/dL (1.6-2.6); Potassium 5.3 mmol/L (3.5-5.1); Sodium 137 mmol/L (136-145)
[2023-09-08 06:29] LABS: Albumin 3.6 g/dL (3.2-4.8); Aspartate Aminotransferase 85 U/L (13-40); Bilirubin, Total 1.8 mg/dL (0.2-1.0); Total Protein 6.2 g/dL (5.7-8.2)
[2023-09-08 07:06] LABS: Blood Urea Nitrogen 53 mg/dL (9-23)
[2023-09-08] MEDS ORDERED: CALCIUM GLUC 1,000mg/50ml-NS 50 ML IV ONE (07:45)
[2023-09-08] MEDS: ALBUMIN 25% 100 ML IV SCH ×3 (07:55→23:51)
[2023-09-08] MEDS: FUROSEMIDE 40 MG/4 ML VIAL IV SCH ×2 (07:56→14:30)
[2023-09-08] MEDS: MIDODRINE HCL 10 MG TAB PO SCH ×3 (07:56→18:21)
[2023-09-08] MEDS: OCTREOTIDE ACETATE 100 MCG/ML VL SUBCUT SCH ×3 (07:58→22:59)
[2023-09-08] MEDS: traMADol HCL 50 MG TAB PO PRN ×2 (08:56→15:04)
[2023-09-08] MEDS: ERTAPENEM SOD INJ 1 GM in SODIUM CHL 0.9% 50 ML IV SCH (10:00)
[2023-09-08] MEDS: METOPROLOL SUCCINATE XL 50 MG TAB PO SCH (10:00)
[2023-09-08] MEDS: LACTULOSE 20Gm/30ML SOLN PO SCH ×3 (10:00→22:00)
[2023-09-08] MEDS: FAMOTIDINE (10MG/ML) 2ML VL IV SCH (10:30)
[2023-09-08] MEDS: DOPamine 1600MCG/ML D5W 250 ML IV SCH (12:49)
[2023-09-08] MEDS: SODIUM FERR GLUC 125 MG in NS 100 ML IV SCH (12:52)
[2023-09-09] VITALS (8 sets, daily range): BP systolic 96–134; BP diastolic 67–93; PULSE 73–96; RESP 15–19; TEMP 97.2–97.9; O2SAT 91–100
[2023-09-09] MEDS: HYDROcodone-ACET 10/325MG TAB PO SCH ×4 (00:58→17:52)
[2023-09-09] MEDS: FUROSEMIDE 40 MG/4 ML VIAL IV SCH ×2 (01:21→08:11)
[2023-09-09] MEDS: ALBUMIN 25% 100 ML IV SCH (06:05)
[2023-09-09] MEDS: MIDODRINE HCL 10 MG TAB PO SCH ×3 (06:15→17:53)
[2023-09-09] MEDS: OCTREOTIDE ACETATE 100 MCG/ML VL SUBCUT SCH ×3 (06:20→22:00)
[2023-09-09 07:47] LABS: Alanine Aminotransferase 14 U/L (7-40); Albumin 4.1 g/dL (3.2-4.8); Alkaline Phosphatase 81 U/L (46-116); Anion Gap 14 (5-15); Aspartate Aminotransferase 66 U/L (13-40); BUN/Creatinine Ratio 17.2 (10.0-20.0); Calcium 8.7 mg/dL (8.7-10.4); Carbon Dioxide 21 mmol/L (20-30); Chloride 103 mmol/L (98-107); Glucose 71 mg/dL (74-106); Hematocrit 32.9 % (36.0-46.0); Magnesium 2.5 mg/dL (1.6-2.6); Mean Corpuscular Hemoglobin 25.2 pg (28.0-32.0); Mean Corpuscular Hgb Conc. 30.5 g/dL (32.0-36.0); Mean Corpuscular Volume 82.5 fL (80.0-100.0); Potassium 4.8 mmol/L (3.5-5.1); Red Blood Cells 3.99 10^6/uL (4.0-5.20); Sodium 138 mmol/L (136-145); White Blood Cell 6.3 10^3/uL (4.4-10.8)
[2023-09-09 07:48] LABS: Total Protein 6.9 g/dL (5.7-8.2)
[2023-09-09 07:50] LABS: Blood Urea Nitrogen 28 mg/dL (9-23)
[2023-09-09 07:53] LABS: Band Neutrophils % (manual) 0; Basophils % (manual) 0 (0.0-2.0); Blast Cells 0; Eosinophils % (manual) 0 (0-7); Metamyelocytes % 0; Myelocytes % 0; Promyelocytes % 0; Reactive Lymphocytes 0; Red Cell Distribution Width 23.8 % (11.8-14.3)
[2023-09-09] MEDS: FAMOTIDINE (10MG/ML) 2ML VL IV SCH (10:04)
[2023-09-09] MEDS: LACTULOSE 20Gm/30ML SOLN PO SCH ×2 (10:05→22:00)
[2023-09-09] MEDS: METOPROLOL SUCCINATE XL 50 MG TAB PO SCH (10:05)
[2023-09-09] MEDS: traMADol HCL 50 MG TAB PO PRN (10:06)
[2023-09-09] MEDS: ERTAPENEM SOD INJ 1 GM in SODIUM CHL 0.9% 50 ML IV SCH (11:28)
[2023-09-09] MEDS ORDERED: IODIXANOL 320MG/ML 100ML BTL IV ONE (12:46)
[2023-09-09] MEDS ORDERED: LIDOCAINE 2%HCL (LOCAL ANESTH.) INJ 20ML MDV ONE (12:46)
[2023-09-09] MEDS ORDERED: fentaNYL CITRATE 100 MCG/2 ML VL ONE (13:04)
[2023-09-09] MEDS ORDERED: MIDAZOLAM HCL 2MG/2ML 2ml VIAL (1mg/ml) ONE (13:05)
[2023-09-09 13:18] LABS: Lymphocytes % (manual) 24 (10.0-50.0); Monocytes % (manual) 5 (0-12); Platelet Estimate Adequate
[2023-09-09] MEDS: SODIUM FERR GLUC 125 MG in NS 100 ML IV SCH (16:12)
[2023-09-09] MEDS: DOPamine 1600MCG/ML D5W 250 ML IV SCH (17:48)
[2023-09-10] VITALS (10 sets, daily range): BP systolic 91–126; BP diastolic 58–82; PULSE 64–91; RESP 16–20; TEMP 97.4–97.7; O2SAT 93–100
[2023-09-10 04:49] LABS: Urine Bacteria NONE SEEN /hpf (None Seen); Urine Blood 2+ /uL (Negative); Urine Budding Yeast OCCASIONAL /hpf (None Seen); Urine Clarity Clear (Clear); Urine Color Yellow (Yellow); Urine Hyaline Cast MANY /lpf (0 - 2); Urine Protein, UAD 2+ (Negative); Urine Specific Gravity 1.023 (1.001-1.035); Urine Urobilinogen Normal (Negative); Urine WBC 17 /hpf (0 - 5); Urine pH 5.5 (5.0-8.0)
[2023-09-10] MEDS: MIDODRINE HCL 10 MG TAB PO SCH ×3 (06:00→17:13)
[2023-09-10] MEDS: HYDROcodone-ACET 10/325MG TAB PO SCH ×5 (06:00→23:30)
[2023-09-10] MEDS: OCTREOTIDE ACETATE 100 MCG/ML VL SUBCUT SCH ×3 (06:00→22:26)
[2023-09-10 06:29] LABS: Basophils # (auto) 0 10 ^3/uL (0-0.2); Eosinophils # (auto) 0 10 ^3/uL (0-0.8); Eosinophils % (auto) 0.4 % (0.0-7.0); Monocytes # (auto) 0.3 10 ^3/uL (0-1.3); Monocytes % (auto) 5.4 % (0.0-12.0)
[2023-09-10 06:32] LABS: Basophils % (auto) 0.5 % (0.0-2.0); Lymphocytes # (auto) 1.5 10 ^3/uL (0.4-5.4); Lymphocytes % (auto) 23.3 % (10.0-50.0); Mean Corpuscular Hemoglobin 25.4 pg (28.0-32.0); Mean Corpuscular Hgb Conc. 29.8 g/dL (32.0-36.0); Mean Corpuscular Volume 85.4 fL (80.0-100.0); Neutrophils # (auto) 4.4 10 ^3/uL (1.6-8.6); Neutrophils % (auto) 70.4 % (37.0-80.0); Red Blood Cells 4.33 10^6/uL (4.0-5.20); White Blood Cell 6.3 10^3/uL (4.4-10.8)
[2023-09-10 06:55] LABS: Alanine Aminotransferase 17 U/L (7-40); Alkaline Phosphatase 89 U/L (46-116); Anion Gap 11 (5-15); BUN/Creatinine Ratio 35.9 (10.0-20.0); Carbon Dioxide 27 mmol/L (20-30); Chloride 102 mmol/L (98-107); Glucose 55 mg/dL (74-106); Magnesium 2.3 mg/dL (1.6-2.6); Potassium 4.8 mmol/L (3.5-5.1); Sodium 140 mmol/L (136-145)
[2023-09-10 06:56] LABS: Albumin 4.1 g/dL (3.2-4.8); Aspartate Aminotransferase 58 U/L (13-40); Bilirubin, Total 2.1 mg/dL (0.2-1.0); Total Protein 6.7 g/dL (5.7-8.2)
[2023-09-10 07:03] LABS: Blood Urea Nitrogen 51 mg/dL (9-23)
[2023-09-10 07:10] LABS: Nucleated Red Blood Cells % 3.4 %; Red Cell Distribution Width 23.7 % (11.8-14.3)
[2023-09-10] MEDS: METOPROLOL SUCCINATE XL 50 MG TAB PO SCH (09:04)
[2023-09-10] MEDS: LACTULOSE 20Gm/30ML SOLN PO SCH ×2 (09:04→22:00)
[2023-09-10] MEDS: ERTAPENEM SOD INJ 1 GM in SODIUM CHL 0.9% 50 ML IV SCH (09:05)
[2023-09-10] MEDS: FAMOTIDINE (10MG/ML) 2ML VL IV SCH (09:08)
[2023-09-10] MEDS: FUROSEMIDE 40 MG/4 ML VIAL IV SCH (09:08)
[2023-09-10 12:21] LABS: INR 1.5 (0.9-1.15); Partial Thromboplastin Time 41.3 SEC (24.5-34.5); Prothrombin Time 15.6 sec (9.3-11.8)
[2023-09-10] MEDS ORDERED: phytonadione 10 MG in SODIUM CHL 0.9% 50 ML IV ONE (15:15)
[2023-09-10] MEDS: FERROUS SULFATE 325mg EC TAB PO SCH (17:13)
[2023-09-11] VITALS (10 sets, daily range): BP systolic 89–128; BP diastolic 62–89; PULSE 66–88; RESP 12–19; TEMP 97.5–98.4; O2SAT 93–100
[2023-09-11 05:20] LABS: Basophils # (auto) 0.1 10 ^3/uL (0-0.2); Eosinophils % (auto) 0.7 % (0.0-7.0); Hemoglobin 11.1 g/dL (12.2-16.2); Lymphocytes # (auto) 1.3 10 ^3/uL (0.4-5.4); Mean Corpuscular Hemoglobin 25.3 pg (28.0-32.0); Monocytes # (auto) 0.5 10 ^3/uL (0-1.3)
[2023-09-11 05:23] LABS: Basophils % (auto) 1.4 % (0.0-2.0); Eosinophils # (auto) 0 10 ^3/uL (0-0.8); Hematocrit 36.7 % (36.0-46.0); Mean Corpuscular Hgb Conc. 30.3 g/dL (32.0-36.0); Mean Corpuscular Volume 83.7 fL (80.0-100.0); Monocytes % (auto) 6.9 % (0.0-12.0); Red Blood Cells 4.38 10^6/uL (4.0-5.20); White Blood Cell 6.9 10^3/uL (4.4-10.8)
[2023-09-11 05:34] LABS: Alanine Aminotransferase 16 U/L (7-40); Albumin 3.7 g/dL (3.2-4.8); Alkaline Phosphatase 86 U/L (46-116); Anion Gap 8 (5-15); Aspartate Aminotransferase 47 U/L (13-40); Calcium 8.8 mg/dL (8.7-10.4); Carbon Dioxide 29 mmol/L (20-30); Chloride 105 mmol/L (98-107); Glucose 83 mg/dL (74-106); Potassium 4.2 mmol/L (3.5-5.1); Sodium 142 mmol/L (136-145)
[2023-09-11 05:35] LABS: BUN/Creatinine Ratio 36.4 (10.0-20.0); Blood Urea Nitrogen 51 mg/dL (9-23); Magnesium 2.1 mg/dL (1.6-2.6); Nucleated Red Blood Cells % 4.1 %; Red Cell Distribution Width 24.3 % (11.8-14.3)
[2023-09-11 05:37] LABS: Bilirubin, Total 2.2 mg/dL (0.2-1.0); Total Protein 6.2 g/dL (5.7-8.2)
[2023-09-11] MEDS: MIDODRINE HCL 10 MG TAB PO SCH ×3 (06:00→17:35)
[2023-09-11] MEDS: OCTREOTIDE ACETATE 100 MCG/ML VL SUBCUT SCH ×3 (06:00→22:00)
[2023-09-11] MEDS: HYDROcodone-ACET 10/325MG TAB PO SCH ×3 (06:00→17:50)
[2023-09-11 07:57] LABS: INR 1.44 (0.9-1.15); Partial Thromboplastin Time 36.2 SEC (24.5-34.5)
[2023-09-11 08:19] LABS: Anisocytosis Moderate
[2023-09-11 08:21] LABS: Platelet Estimate Adequate
[2023-09-11] MEDS: METOPROLOL SUCCINATE XL 50 MG TAB PO SCH (10:00)
[2023-09-11] MEDS: LACTULOSE 20Gm/30ML SOLN PO SCH ×2 (10:00→22:00)
[2023-09-11] MEDS: FUROSEMIDE 40 MG/4 ML VIAL IV SCH (10:02)
[2023-09-11] MEDS: FAMOTIDINE (10MG/ML) 2ML VL IV SCH (10:02)
[2023-09-11] MEDS: FERROUS SULFATE 325mg EC TAB PO SCH ×2 (10:03→17:35)
[2023-09-11] MEDS: ERTAPENEM SOD INJ 1 GM in SODIUM CHL 0.9% 50 ML IV SCH (12:31)
[2023-09-11] MEDS ORDERED: fentaNYL CITRATE 100 MCG/2 ML VL ONE (15:01)
[2023-09-11] MEDS ORDERED: LIDOCAINE 2%HCL (LOCAL ANESTH.) INJ 20ML MDV ONE ×3 (15:01→15:53)
[2023-09-11] MEDS ORDERED: MIDAZOLAM HCL 2MG/2ML 2ml VIAL (1mg/ml) ONE (15:01)
[2023-09-11] MEDS ORDERED: ceFAZolin 1GM/50ML 0 ML IV ONE (15:01)
[2023-09-12] VITALS (8 sets, daily range): BP systolic 92–104; BP diastolic 64–77; PULSE 64–87; RESP 16–24; TEMP 36.3; O2SAT 92–100
[2023-09-12] MEDS: MIDODRINE HCL 10 MG TAB PO SCH ×3 (06:00→18:53)
[2023-09-12] MEDS: OCTREOTIDE ACETATE 100 MCG/ML VL SUBCUT SCH ×3 (06:00→22:34)
[2023-09-12] MEDS: FERROUS SULFATE 325mg EC TAB PO SCH ×2 (08:00→17:01)
[2023-09-12] MEDS: LACTULOSE 20Gm/30ML SOLN PO SCH ×2 (09:42→22:00)
[2023-09-12] MEDS: SPIRONOLACTONE 25 MG TAB PO SCH (09:43)
[2023-09-12] MEDS: EMPAGLIFLOZIN 10 MG TAB PO SCH (09:43)
[2023-09-12] MEDS: PANTOPRAZOLE 40 MG/10 ML VIAL INJ IV SCH (09:46)
[2023-09-12] MEDS: METOPROLOL SUCCINATE XL 50 MG TAB PO SCH (10:00)
[2023-09-12] MEDS: FUROSEMIDE 40 MG/4 ML VIAL IV SCH (10:06)
[2023-09-12] MEDS: ERTAPENEM SOD INJ 1 GM in SODIUM CHL 0.9% 50 ML IV SCH (10:07)
[2023-09-12] MEDS: HYDROcodone-ACET 10/325MG TAB PO SCH ×5 (11:20→23:54)
[2023-09-12 13:06] LABS: Vitamin D 25-Hydroxy 2.8 ng/mL (.); Vitamin D-2 25-Hydroxy <1.0 ng/mL (.); Vitamin D-3 25-Hydroxy 2.7 ng/mL (.)
[2023-09-12 19:35] LABS: Basophils # (auto) 0 10 ^3/uL (0-0.2); Eosinophils # (auto) 0.1 10 ^3/uL (0-0.8); Hemoglobin 12.3 g/dL (12.2-16.2); Lymphocytes # (auto) 1.2 10 ^3/uL (0.4-5.4); Monocytes # (auto) 0.3 10 ^3/uL (0-1.3)
[2023-09-12 19:37] LABS: Basophils % (auto) 0.8 % (0.0-2.0); Hematocrit 40.6 % (36.0-46.0); Mean Corpuscular Hemoglobin 25.1 pg (28.0-32.0); Mean Corpuscular Hgb Conc. 30.3 g/dL (32.0-36.0); Mean Corpuscular Volume 83.1 fL (80.0-100.0); Monocytes % (auto) 5.5 % (0.0-12.0); Neutrophils # (auto) 4.3 10 ^3/uL (1.6-8.6); Neutrophils % (auto) 72.7 % (37.0-80.0); Nucleated Red Blood Cells % 2.2 %; Red Blood Cells 4.89 10^6/uL (4.0-5.20); White Blood Cell 5.9 10^3/uL (4.4-10.8)
[2023-09-12 19:50] LABS: Alanine Aminotransferase 11 U/L (7-40); Albumin 3.3 g/dL (3.2-4.8); Alkaline Phosphatase 77 U/L (46-116); Anion Gap 8 (5-15); Aspartate Aminotransferase 39 U/L (13-40); BUN/Creatinine Ratio 26.5 (10.0-20.0); Bilirubin, Total 2.4 mg/dL (0.2-1.0); Calcium 8.8 mg/dL (8.7-10.4); Carbon Dioxide 33 mmol/L (20-30); Chloride 104 mmol/L (98-107); Glucose 131 mg/dL (74-106); Potassium 3.8 mmol/L (3.5-5.1); Sodium 145 mmol/L (136-145)
[2023-09-12 19:51] LABS: Blood Urea Nitrogen 30 mg/dL (9-23)
[2023-09-13 05:00] VITALS: BP 97/71; PULSE 84; RESP 20; TEMP 97.5; O2SAT 98
[2023-09-13] MEDS: HYDROcodone-ACET 10/325MG TAB PO SCH ×3 (05:57→18:00)
[2023-09-13] MEDS: OCTREOTIDE ACETATE 100 MCG/ML VL SUBCUT SCH ×3 (05:57→21:20)
[2023-09-13] MEDS: MIDODRINE HCL 10 MG TAB PO SCH ×3 (05:58→18:00)
[2023-09-13] MEDS: EMPAGLIFLOZIN 10 MG TAB PO SCH (05:58)
[2023-09-13 06:14] LABS: Eosinophils # (auto) 0.1 10 ^3/uL (0-0.8); Eosinophils % (auto) 1.5 % (0.0-7.0); Lymphocytes # (auto) 1.3 10 ^3/uL (0.4-5.4); Lymphocytes % (auto) 24.5 % (10.0-50.0); Monocytes # (auto) 0.4 10 ^3/uL (0-1.3)
[2023-09-13 06:18] LABS: Basophils # (auto) 0 10 ^3/uL (0-0.2); Hematocrit 40.1 % (36.0-46.0); Hemoglobin 12.1 g/dL (12.2-16.2); Mean Corpuscular Hemoglobin 25.5 pg (28.0-32.0); Mean Corpuscular Hgb Conc. 30.2 g/dL (32.0-36.0); Mean Corpuscular Volume 84.6 fL (80.0-100.0); Monocytes % (auto) 7.8 % (0.0-12.0); Neutrophils # (auto) 3.4 10 ^3/uL (1.6-8.6); Neutrophils % (auto) 65.2 % (37.0-80.0); Nucleated Red Blood Cells % 2.5 %; Red Blood Cells 4.74 10^6/uL (4.0-5.20); Red Cell Distribution Width 24.8 % (11.8-14.3); White Blood Cell 5.2 10^3/uL (4.4-10.8)
[2023-09-13 06:36] LABS: Alanine Aminotransferase 15 U/L (7-40); Albumin 3.3 g/dL (3.2-4.8); Alkaline Phosphatase 76 U/L (46-116); Anion Gap 7 (5-15); Aspartate Aminotransferase 41 U/L (13-40); BUN/Creatinine Ratio 35.6 (10.0-20.0); Blood Urea Nitrogen 37 mg/dL (9-23); Calcium 8.6 mg/dL (8.7-10.4); Carbon Dioxide 32 mmol/L (20-30); Chloride 106 mmol/L (98-107); Glucose 82 mg/dL (74-106); Magnesium 1.8 mg/dL (1.6-2.6); Potassium 3.9 mmol/L (3.5-5.1); Sodium 145 mmol/L (136-145)
[2023-09-13 06:37] LABS: Bilirubin, Total 2.3 mg/dL (0.2-1.0); Total Protein 5.8 g/dL (5.7-8.2)
[2023-09-13 08:01] VITALS: BP 99/58; PULSE 88; RESP 20; TEMP 97.6; O2SAT 97
[2023-09-13] MEDS: LACTULOSE 20Gm/30ML SOLN PO SCH ×2 (08:44→21:20)
[2023-09-13] MEDS: FUROSEMIDE 40 MG/4 ML VIAL IV SCH (08:45)
[2023-09-13] MEDS: FERROUS SULFATE 325mg EC TAB PO SCH ×2 (08:45→15:08)
[2023-09-13] MEDS: METOPROLOL SUCCINATE XL 50 MG TAB PO SCH (08:47)
[2023-09-13] MEDS: SPIRONOLACTONE 25 MG TAB PO SCH (08:48)
[2023-09-13] MEDS: PANTOPRAZOLE 40 MG/10 ML VIAL INJ IV SCH (09:08)
[2023-09-13] MEDS: ERTAPENEM SOD INJ 1 GM in SODIUM CHL 0.9% 50 ML IV SCH (11:49)
[2023-09-13 13:00] VITALS: BP 107/71; PULSE 80; RESP 15; TEMP 97.5; O2SAT 100
[2023-09-13 16:57] VITALS: BP 106/73; PULSE 83; RESP 20; TEMP 97.4; O2SAT 100
[2023-09-13 19:30] VITALS: PULSE 78; PULSE 82; RESP 18; O2SAT 95
[2023-09-13] MEDS: MORPHINE SULFATE INJ 2 MG/ml SYRG IV PRN (21:17)
[2023-09-13 22:00] VITALS: BP 120/72; PULSE 79; RESP 16; TEMP 97.5; O2SAT 100
[2023-09-14] VITALS (7 sets, daily range): BP systolic 93–117; BP diastolic 63–86; PULSE 76–85; RESP 15–19; TEMP 97.3–97.6; O2SAT 91–100
[2023-09-14] MEDS: MORPHINE SULFATE INJ 2 MG/ml SYRG IV PRN ×2 (03:49→10:55)
[2023-09-14] MEDS: OCTREOTIDE ACETATE 100 MCG/ML VL SUBCUT SCH ×3 (06:00→22:00)
[2023-09-14] MEDS: HYDROcodone-ACET 10/325MG TAB PO SCH ×4 (06:31→20:45)
[2023-09-14] MEDS: MIDODRINE HCL 10 MG TAB PO SCH ×3 (06:31→20:46)
[2023-09-14] MEDS: EMPAGLIFLOZIN 10 MG TAB PO SCH (06:31)
[2023-09-14] MEDS: LACTULOSE 20Gm/30ML SOLN PO SCH ×2 (10:51→22:00)
[2023-09-14] MEDS: PANTOPRAZOLE 40 MG/10 ML VIAL INJ IV SCH (10:51)
[2023-09-14] MEDS: FUROSEMIDE 40 MG/4 ML VIAL IV SCH (10:52)
[2023-09-14] MEDS: SPIRONOLACTONE 25 MG TAB PO SCH (10:54)
[2023-09-14] MEDS: METOPROLOL SUCCINATE XL 50 MG TAB PO SCH (10:54)
[2023-09-14] MEDS: FERROUS SULFATE 325mg EC TAB PO SCH ×2 (10:56→20:45)
[2023-09-14] MEDS: ERTAPENEM SOD INJ 1 GM in SODIUM CHL 0.9% 50 ML IV SCH (10:57)
[2023-09-14 11:00] LABS: Eosinophils # (auto) 0.1 10 ^3/uL (0-0.8); Mean Corpuscular Hemoglobin 25.2 pg (28.0-32.0); Monocytes # (auto) 0.3 10 ^3/uL (0-1.3); Red Blood Cells 4.36 10^6/uL (4.0-5.20); White Blood Cell 5.1 10^3/uL (4.4-10.8)
[2023-09-14 11:02] LABS: Basophils # (auto) 0 10 ^3/uL (0-0.2); Basophils % (auto) 0.6 % (0.0-2.0); Eosinophils % (auto) 1.9 % (0.0-7.0); Hematocrit 35.9 % (36.0-46.0); Lymphocytes # (auto) 1.1 10 ^3/uL (0.4-5.4); Lymphocytes % (auto) 22.5 % (10.0-50.0); Mean Corpuscular Hgb Conc. 30.6 g/dL (32.0-36.0); Mean Corpuscular Volume 82.5 fL (80.0-100.0); Monocytes % (auto) 5.9 % (0.0-12.0); Neutrophils # (auto) 3.5 10 ^3/uL (1.6-8.6); Neutrophils % (auto) 69.1 % (37.0-80.0); Nucleated Red Blood Cells % 2.4 %
[2023-09-14 11:10] LABS: Red Cell Distribution Width 25.8 % (11.8-14.3)
[2023-09-14 11:15] LABS: Alanine Aminotransferase 10 U/L (7-40); Albumin 3.4 g/dL (3.2-4.8); Alkaline Phosphatase 79 U/L (46-116); Anion Gap 7 (5-15); Aspartate Aminotransferase 38 U/L (13-40); BUN/Creatinine Ratio 21.6 (10.0-20.0); Bilirubin, Total 2.2 mg/dL (0.2-1.0); Blood Urea Nitrogen 22 mg/dL (9-23); Calcium 8.5 mg/dL (8.7-10.4); Carbon Dioxide 30 mmol/L (20-30); Chloride 105 mmol/L (98-107); Glucose 128 mg/dL (74-106); Magnesium 1.8 mg/dL (1.6-2.6); Potassium 3.8 mmol/L (3.5-5.1); Sodium 142 mmol/L (136-145); Total Protein 6.2 g/dL (5.7-8.2)
[2023-09-14 12:02] LABS: Platelet Estimate Adequate
[2023-09-14 12:03] LABS: Target Cell MODERATE
[2023-09-14 12:04] LABS: Anisocytosis Moderate
[2023-09-14 12:05] LABS: Hypochromia Slight
[2023-09-15] VITALS (7 sets, daily range): BP systolic 78–112; BP diastolic 60–71; PULSE 62–80; RESP 18–20; TEMP 97.3–98.1; O2SAT 92–98
[2023-09-15] MEDS: MORPHINE SULFATE INJ 2 MG/ml SYRG IV PRN (02:31)
[2023-09-15] MEDS: HYDROcodone-ACET 10/325MG TAB PO SCH ×4 (03:30→17:30)
[2023-09-15] MEDS: MIDODRINE HCL 10 MG TAB PO SCH ×3 (05:13→17:30)
[2023-09-15] MEDS: EMPAGLIFLOZIN 10 MG TAB PO SCH (05:13)
[2023-09-15] MEDS: OCTREOTIDE ACETATE 100 MCG/ML VL SUBCUT SCH ×3 (05:14→22:00)
[2023-09-15 06:46] LABS: Basophils # (auto) 0 10 ^3/uL (0-0.2); Eosinophils # (auto) 0.1 10 ^3/uL (0-0.8); Hematocrit 37.5 % (36.0-46.0); Hemoglobin 11.3 g/dL (12.2-16.2); Lymphocytes # (auto) 1.5 10 ^3/uL (0.4-5.4); Mean Corpuscular Hgb Conc. 30.1 g/dL (32.0-36.0); Neutrophils # (auto) 3.2 10 ^3/uL (1.6-8.6)
[2023-09-15 06:48] LABS: Alanine Aminotransferase 10 U/L (7-40); Albumin 3.2 g/dL (3.2-4.8); Alkaline Phosphatase 79 U/L (46-116); Anion Gap 9 (5-15); Aspartate Aminotransferase 37 U/L (13-40); BUN/Creatinine Ratio 19.8 (10.0-20.0); Blood Urea Nitrogen 18 mg/dL (9-23); Calcium 8.3 mg/dL (8.7-10.4); Carbon Dioxide 28 mmol/L (20-30); Chloride 105 mmol/L (98-107); Glucose 60 mg/dL (74-106); Magnesium 1.8 mg/dL (1.6-2.6); Potassium 4.1 mmol/L (3.5-5.1); Sodium 142 mmol/L (136-145)
[2023-09-15 06:49] LABS: Bilirubin, Total 2.1 mg/dL (0.2-1.0)
[2023-09-15 06:55] LABS: Basophils % (auto) 0.8 % (0.0-2.0); Eosinophils % (auto) 1.8 % (0.0-7.0); Lymphocytes % (auto) 28.4 % (10.0-50.0); Mean Corpuscular Hemoglobin 25.3 pg (28.0-32.0); Mean Corpuscular Volume 84.2 fL (80.0-100.0); Monocytes # (auto) 0.4 10 ^3/uL (0-1.3); Monocytes % (auto) 7.2 % (0.0-12.0); Neutrophils % (auto) 61.8 % (37.0-80.0); Nucleated Red Blood Cells % 1.6 %; Red Blood Cells 4.45 10^6/uL (4.0-5.20); White Blood Cell 5.2 10^3/uL (4.4-10.8)
[2023-09-15 07:09] LABS: Red Cell Distribution Width 25.9 % (11.8-14.3)
[2023-09-15] MEDS: ERTAPENEM SOD INJ 1 GM in SODIUM CHL 0.9% 50 ML IV SCH (09:28)
[2023-09-15] MEDS: PANTOPRAZOLE 40 MG/10 ML VIAL INJ IV SCH (09:29)
[2023-09-15] MEDS: FERROUS SULFATE 325mg EC TAB PO SCH ×2 (09:29→17:30)
[2023-09-15] MEDS: LACTULOSE 20Gm/30ML SOLN PO SCH ×2 (09:29→22:00)
[2023-09-15] MEDS: FUROSEMIDE 40 MG/4 ML VIAL IV SCH (09:40)
[2023-09-15] MEDS: METOPROLOL SUCCINATE XL 50 MG TAB PO SCH (09:43)
[2023-09-15] MEDS: SPIRONOLACTONE 25 MG TAB PO SCH (09:43)
[2023-09-15] MEDS ORDERED: LIDOCAINE 2% (LOCAL ANESTH.) PF 5ml SDV ONE (14:01)
[2023-09-16 05:00] VITALS: BP 83/59; PULSE 86; RESP 19; TEMP 97.6; O2SAT 98
[2023-09-16] MEDS: HYDROcodone-ACET 10/325MG TAB PO SCH ×3 (06:00→12:00)
[2023-09-16] MEDS: OCTREOTIDE ACETATE 100 MCG/ML VL SUBCUT SCH ×2 (06:00→14:23)
[2023-09-16] MEDS: EMPAGLIFLOZIN 10 MG TAB PO SCH (07:00)
[2023-09-16] MEDS: MIDODRINE HCL 10 MG TAB PO SCH ×2 (07:00→12:00)
[2023-09-16 08:00] VITALS: PULSE 96
[2023-09-16 08:58] VITALS: BP 121/79; PULSE 91; RESP 15; TEMP 97.6; O2SAT 98
[2023-09-16] MEDS: FERROUS SULFATE 325mg EC TAB PO SCH (09:17)
[2023-09-16] MEDS: PANTOPRAZOLE 40 MG TAB PO SCH ×2 (09:17→10:00)
[2023-09-16] MEDS ORDERED: MEROPENEM 1GM IVPB 100 ML IV ONE (09:45)
[2023-09-16] MEDS: FUROSEMIDE 40 MG/4 ML VIAL IV SCH (10:00)
[2023-09-16] MEDS: METOPROLOL SUCCINATE XL 50 MG TAB PO SCH (10:00)
[2023-09-16] MEDS: SPIRONOLACTONE 25 MG TAB PO SCH (10:00)
[2023-09-16] MEDS: LACTULOSE 20Gm/30ML SOLN PO SCH (10:00)
[2023-09-16 11:05] LABS: Alanine Aminotransferase 11 U/L (7-40); Albumin 3.3 g/dL (3.2-4.8); Alkaline Phosphatase 85 U/L (46-116); Anion Gap 5 (5-15); Aspartate Aminotransferase 39 U/L (13-40); Blood Urea Nitrogen 14 mg/dL (9-23); Calcium 8.7 mg/dL (8.5-10.1); Carbon Dioxide 32 mmol/L (20-30); Chloride 104 mmol/L (98-107); Glucose 104 mg/dL (74-106); Potassium 4.2 mmol/L (3.5-5.1); Sodium 141 mmol/L (136-145)
[2023-09-16 11:06] LABS: Bilirubin, Total 2.2 mg/dL (0.2-1.0)
[2023-09-16 11:43] LABS: Mean Corpuscular Hemoglobin 25.3 pg (28.0-32.0); Mean Corpuscular Hgb Conc. 30.3 g/dL (32.0-36.0)
[2023-09-16 11:45] LABS: Hematocrit 38.3 % (36.0-46.0); Hemoglobin 11.6 g/dL (12.2-16.2); Mean Corpuscular Volume 83.4 fL (80.0-100.0); Red Blood Cells 4.59 10^6/uL (4.0-5.20); White Blood Cell 6.1 10^3/uL (4.4-10.8)
[2023-09-16 11:51] LABS: Red Cell Distribution Width 27.7 % (11.8-14.3)
[2023-09-16 11:52] LABS: Blast Cells 0; Eosinophils % (manual) 0 (0-7); Metamyelocytes % 0; Myelocytes % 0; Promyelocytes % 0; Reactive Lymphocytes 0
[2023-09-16 12:13] LABS: Anisocytosis Moderate; Band Neutrophils % (manual) 5; Basophils % (manual) 1 (0.0-2.0); Lymphocytes % (manual) 19 (10.0-50.0); Monocytes % (manual) 9 (0-12); Platelet Estimate Adequate
[2023-09-16 13:00] VITALS: BP 90/71; PULSE 75; RESP 18; TEMP 97.8; O2SAT 96
[2023-09-16 13:24] LABS: Urine Bacteria NONE SEEN /hpf (None Seen); Urine Blood 2+ /uL (Negative); Urine Budding Yeast MODERATE /hpf (None Seen); Urine Clarity Clear (Clear); Urine Color Yellow (Yellow); Urine Protein, UAD 1+ (Negative); Urine Specific Gravity 1.019 (1.001-1.035); Urine Urobilinogen Normal (Negative); Urine WBC 14 /hpf (0 - 5)
[2023-09-16 13:25] LABS: COVID19 ANTIGEN SOFIA FIA NEGATIVE (NEGATIVE)
[2023-09-16 13:43] LABS: Rapid Influenza A Negative (Negative); Rapid Influenza B Negative (Negative)
[2023-09-16 14:42] LABS: Body Fluid pH 8
[2023-09-16 16:00] LABS: Body Fluid Polymorphonuclear 12 % (0-25)
[2023-09-16 16:41] LABS: Body Fluid Red Blood Cells 848 CUMM (0-2000); Body Fluid White Blood Cells 208 CUMM (0-200)
[2023-09-16] MEDS ORDERED: MEROPENEM 1GM IVPB 100 ML IV SCH (18:00)
[2023-09-16] MEDS ORDERED: ERTAPENEM SOD INJ 1 GM in SODIUM CHL 0.9% 50 ML IV SCH (18:00)
[2023-09-17] MEDS ORDERED: EMPAGLIFLOZIN 10 MG TAB PO SCH (07:00)
[2023-09-17 13:06] LABS: Albumin, Body Fluid 1.9 g/dL (Not Estab.); Protein, Body Fluid 3.4 g/dL (.)
== END 2023-09-16 16:35 | disposition hospice, home (50) | DRG 137 ==
LOC: EDBD 04:45 → ER 04:45 → TELE 14:29 → TELE-CENTR 22:16 → DOU IN ICU 09-06 19:15 → TELE-EAST 09-08 17:40
PROVIDERS: ADMIT Internal Medicine; ATTEND Emergency Medicine
PROC: 0W9G3ZZ Drainage of Peritoneal Cavity, Percutaneous Approach (ICD-10-PCS; principal; 2023-09-12)
DX: J15.69 Pneumonia due to other Gram-negative bacteria (principal); K76.7 Hepatorenal syndrome; I50.43 Acute on chronic combined systolic (congestive) and diastolic (congestive) heart failure; K65.2 Spontaneous bacterial peritonitis; I82.412 Acute embolism and thrombosis of left femoral vein; N17.9 Acute kidney failure, unspecified; C22.0 Liver cell carcinoma; E87.1 Hypo-osmolality and hyponatremia; K72.90 Hepatic failure, unspecified without coma; I42.8 Other cardiomyopathies; I47.20 Ventricular tachycardia, unspecified; I13.0 Hypertensive heart and chronic kidney disease with heart failure and stage 1 through stage 4 chronic kidney disease, or unspecified chronic kidney disease; R64 Cachexia; R18.8 Other ascites; E11.22 Type 2 diabetes mellitus with diabetic chronic kidney disease; K74.60 Unspecified cirrhosis of liver; D50.9 Iron deficiency anemia, unspecified; B96.20 Unspecified Escherichia coli [E. coli] as the cause of diseases classified elsewhere; E87.6 Hypokalemia; E83.42 Hypomagnesemia; Z20.822 Contact with and (suspected) exposure to COVID-19; N14.11 Contrast-induced nephropathy; T50.8X5A Adverse effect of diagnostic agents, initial encounter; I08.0 Rheumatic disorders of both mitral and aortic valves; N39.0 Urinary tract infection, site not specified; N18.9 Chronic kidney disease, unspecified; F15.10 Other stimulant abuse, uncomplicated; Z79.01 Long term (current) use of anticoagulants; Z79.899 Other long term (current) drug therapy; Z79.82 Long term (current) use of aspirin; Z86.711 Personal history of pulmonary embolism; Z82.49 Family history of ischemic heart disease and other diseases of the circulatory system; Z83.3 Family history of diabetes mellitus; Z87.891 Personal history of nicotine dependence; Z79.84 Long term (current) use of oral hypoglycemic drugs; Y92.89 Other specified places as the place of occurrence of the external cause
CPT/HCPCS: 36415; 36600; 70450; 71045; 71275; 73502; 74176; 76000; 76705; 76775; 76942; 80053; 80061; 81001; 82105; 82140; 82306; 82570; 82607; 82728; 82746; 82805; 82962; 83010; 83540; 83550; 83605; 83615; 83735; 83880; 83930; 83986; 84156; 84300; 84443; 84484; 84702; 85007; 85025; 85027; 85045; 85379; 85610; 85730; 87040; 87081; 87086; 87088; 87186; 87205; 87426; 87804; 89051; 93005; 93306; 93970; 94640; 96374; 97110; 97163; 97530; 99152; 99291; A4300; C1894; C9113; G0378; J1335; J2001; J2185; J2250; J2405; J3430; J3490; P9047; Q9967

== ENCOUNTER 2023-09-23 19:52 | Inpatient (IN) | payer MEDICAID ==
[~2023-09-23] VITALS: Ht 160 cm; Wt 52.8 kg
[~2023-09-23 19:52] MED LIST changes: +ALB2.5IS NEB; -ALBUAER3 IN; -DAPA1TAB4 PO; +DOCU-94 PO; -FURO20TA3 PO; +HYDR-4902 PO
[2023-09-23 20:09] VITALS: O2SAT 98
[2023-09-23] MEDS ORDERED: MORPHINE SULFATE INJ 2 MG/ml SYRG IV ONE (20:45)
[2023-09-23] MEDS ORDERED: ONDANSETRON HCL 4 MG/2 ML VIAL IV ONE (20:45)
[2023-09-23] MEDS ORDERED: LORazepam 2MG/ML-1ML VIAL IV ONE (20:45)
[2023-09-23] MEDS ORDERED: FUROSEMIDE 20 MG/2 ML VIAL IV ONE (22:00)
[2023-09-23 22:07] LABS: Basophils # (auto) 0.1 10 ^3/uL (0-0.2); Eosinophils # (auto) 0 10 ^3/uL (0-0.8); Monocytes # (auto) 0.6 10 ^3/uL (0-1.3)
[2023-09-23 22:09] LABS: Neutrophils # (auto) 5.4 10 ^3/uL (1.6-8.6)
[2023-09-23 22:14] LABS: Eosinophils % (auto) 0.1 % (0.0-7.0); Hematocrit 37.8 % (36.0-46.0); Hemoglobin 10.8 g/dL (12.2-16.2); Lymphocytes # (auto) 1.5 10 ^3/uL (0.4-5.4); Lymphocytes % (auto) 19.9 % (10.0-50.0); Mean Corpuscular Hemoglobin 26.3 pg (28.0-32.0); Mean Corpuscular Hgb Conc. 28.6 g/dL (32.0-36.0); Mean Corpuscular Volume 91.9 fL (80.0-100.0); Monocytes % (auto) 7.3 % (0.0-12.0); Neutrophils % (auto) 71.7 % (37.0-80.0); Nucleated Red Blood Cells % 0.6 %; Red Blood Cells 4.11 10^6/uL (4.0-5.20); White Blood Cell 7.6 10^3/uL (4.4-10.8)
[2023-09-23 22:16] LABS: Chloride 104 mmol/L (98-107); Potassium 3.4 mmol/L (3.5-5.1); Sodium 137 mmol/L (136-145)
[2023-09-23 22:17] LABS: Anion Gap 18 (5-15); Carbon Dioxide 15 mmol/L (20-30)
[2023-09-23 22:22] LABS: Glucose 103 mg/dL (74-106)
[2023-09-23] MEDS ORDERED: ONDANSETRON HCL 4 MG/2 ML VIAL IV PRN (22:45)
[2023-09-23] MEDS ORDERED: MORPHINE SULFATE INJ 2 MG/ml SYRG IV PRN (22:45)
[2023-09-23] MEDS ORDERED: NITROGLYCERIN 0.4 MG SL TAB SL PRN (22:45)
[2023-09-23] MEDS ORDERED: HYDROcodone-ACET 5/325MG TAB PO PRN (22:45)
[2023-09-23] MEDS ORDERED: ACETAMINOPHEN 325 MG TAB PO PRN (22:45)
[2023-09-23] MEDS ORDERED: DOCUSATE SOD 100 MG CAP PO PRN (22:45)
[2023-09-23] MEDS ORDERED: MAGN241.4 PO (22:54)
[2023-09-23] MEDS ORDERED: POTA-264 PO (22:54)
[2023-09-23] MEDS ORDERED: FERR325T20 PO (22:54)
[2023-09-23] MEDS ORDERED: LACT10SO59 PO (22:54)
[2023-09-23] MEDS ORDERED: MID10T PO (22:54)
[2023-09-23 22:55] LABS: INR 1.69 (0.9-1.15); Partial Thromboplastin Time 29.2 SEC (24.5-34.5); Prothrombin Time 17.1 sec (9.3-11.8)
[2023-09-23] MEDS ORDERED: POTASSIUM CHL 20 Meq TABLET PO ONE (23:00)
[2023-09-23 23:16] LABS: BUN/Creatinine Ratio 19.5 (10.0-20.0); Blood Urea Nitrogen 24 mg/dL (9-23)
[2023-09-23 23:26] LABS: Anisocytosis Moderate; Platelet Estimate Adequate
[2023-09-23 23:27] LABS: Macrocytosis Slight
[2023-09-23] MEDS ORDERED: ENOXAPARIN SOD 80 MG/0.8ML SYRINGE SC SCH (23:30)
[2023-09-24] MEDS: MIDODRINE HCL 10 MG TAB PO SCH ×3 (05:59→17:38)
[2023-09-24] MEDS: FUROSEMIDE 40 MG/4 ML VIAL IV SCH ×2 (06:00→17:38)
[2023-09-24 06:18] LABS: Eosinophils # (auto) 0 10 ^3/uL (0-0.8); Mean Corpuscular Hemoglobin 25.9 pg (28.0-32.0)
[2023-09-24 06:21] LABS: Basophils # (auto) 0.1 10 ^3/uL (0-0.2); Basophils % (auto) 0.7 % (0.0-2.0); Hematocrit 34.9 % (36.0-46.0); Hemoglobin 10.6 g/dL (12.2-16.2); Lymphocytes # (auto) 1.4 10 ^3/uL (0.4-5.4); Lymphocytes % (auto) 15.1 % (10.0-50.0); Mean Corpuscular Hgb Conc. 30.5 g/dL (32.0-36.0); Mean Corpuscular Volume 84.7 fL (80.0-100.0); Monocytes # (auto) 0.4 10 ^3/uL (0-1.3); Monocytes % (auto) 4.5 % (0.0-12.0); Neutrophils # (auto) 7.2 10 ^3/uL (1.6-8.6); Neutrophils % (auto) 79.7 % (37.0-80.0); Nucleated Red Blood Cells % 0.7 %; Red Blood Cells 4.11 10^6/uL (4.0-5.20)
[2023-09-24 06:31] LABS: Red Cell Distribution Width 29.3 % (11.8-14.3)
[2023-09-24 06:45] LABS: Alanine Aminotransferase 19 U/L (7-40); Albumin 3.5 g/dL (3.2-4.8); Alkaline Phosphatase 126 U/L (46-116); Anion Gap 14 (5-15); Aspartate Aminotransferase 43 U/L (13-40); BUN/Creatinine Ratio 23.1 (10.0-20.0); Blood Urea Nitrogen 30 mg/dL (9-23); Calcium 8.6 mg/dL (8.5-10.1); Carbon Dioxide 18 mmol/L (20-30); Chloride 104 mmol/L (98-107); Glucose 75 mg/dL (74-106); Potassium 4.5 mmol/L (3.5-5.1); Sodium 136 mmol/L (136-145)
[2023-09-24 06:46] LABS: Bilirubin, Total 2.3 mg/dL (0.2-1.0); Total Protein 6.3 g/dL (5.7-8.2)
[2023-09-24 07:30] VITALS: PULSE 104; RESP 19; O2SAT 95
[2023-09-24] MEDS ORDERED: MORPHINE SULFATE INJ 2 MG/ml SYRG IV ONE (08:45)
[2023-09-24] MEDS: FERROUS SULFATE 325mg EC TAB PO SCH ×2 (09:05→17:38)
[2023-09-24] MEDS ORDERED: POTASSIUM CHL 10 Meq TABLET PO SCH (10:00)
[2023-09-24] MEDS ORDERED: PATIENTS OWN MEDICATION (Potassium Chloride (Potassium Chloride ER) 1 TAB) PO SCH (10:00)
[2023-09-24] MEDS ORDERED: PATIENTS OWN MEDICATION (Magnesium Oxide (Mag-Ox) 1 TAB) PO SCH (10:00)
[2023-09-24] MEDS ORDERED: PATIENTS OWN MEDICATION (Metoprolol Succinate (Metoprolol Succinate Er) 1 TAB) PO SCH (10:00)
[2023-09-24] MEDS ORDERED: METOPROLOL SUCCINATE XL 50 MG TAB PO SCH (10:00)
[2023-09-24] MEDS ORDERED: SPIRONOLACTONE 25 MG TAB PO SCH (10:00)
[2023-09-24] MEDS: ENOXAPARIN SOD 40 MG/0.4 ML SYRINGE SC SCH (10:30)
[2023-09-24] MEDS: LACTULOSE 20Gm/30ML SOLN PO SCH ×2 (10:30→10:42)
[2023-09-24] MEDS: POTASSIUM CHL 10 Meq TABLET PO SCH (10:37)
[2023-09-24] MEDS: MAGNESIUM OXIDE 400 MG TAB PO SCH (10:37)
[2023-09-24] MEDS: PANTOPRAZOLE 40 MG TAB PO SCH (10:38)
[2023-09-24] MEDS ORDERED: FUROSEMIDE 40 MG/4 ML VIAL IV ONE (10:45)
[2023-09-24] MEDS ORDERED: MORPHINE SULF 15mg ER tab PO ONE (10:45)
[2023-09-24] MEDS ORDERED: FUROSEMIDE 20 MG/2 ML VIAL IV ONE (13:45)
[2023-09-24 16:00] LABS: Urine Epithelial Cast None Seen /hpf (<5)
[2023-09-24 16:10] VITALS: BP 95/67; PULSE 82; RESP 22; TEMP 97.5; O2SAT 99
[2023-09-24 16:42] LABS: Amphetamine Screen, Urine Neg (NEGATIVE)
[2023-09-24 16:43] LABS: Barbiturate Scree,Urine Neg (NEGATIVE); Benzodiazephine Screen, Urine Neg (NEGATIVE); Cannabinoid Screen, Urine Neg (NEGATIVE); Cocaine Screen, Urine Neg (NEGATIVE); Opiate Scree,Urine Pos (NEGATIVE); Phencyclidine Screen, Urine Neg (NEGATIVE); Urine Bacteria NONE SEEN /hpf (None Seen); Urine Blood 2+ /uL (Negative); Urine Clarity HAZY (Clear); Urine Color Yellow (Yellow); Urine Hyaline Cast MANY /lpf (0 - 2); Urine Mucus FEW (None Seen); Urine Protein, UAD 1+ (Negative); Urine Specific Gravity 1.014 (1.001-1.035); Urine Urobilinogen Normal (Negative); Urine WBC 5 /hpf (0 - 5)
[2023-09-24] MEDS ORDERED: ERTAPENEM SOD INJ 1 GM in SODIUM CHL 0.9% 50 ML IV ONE (18:15)
[2023-09-24 20:00] VITALS: BP 117/99; PULSE 77; PULSE 86; RESP 19; TEMP 98; O2SAT 96
[2023-09-24 22:00] VITALS: BP 117/99; PULSE 86; RESP 19; TEMP 98; O2SAT 96
[2023-09-24] MEDS ORDERED: MORPHINE SULF 15mg ER tab PO SCH (22:00)
[2023-09-24] MEDS: MORPHINE SULF 15mg ER tab PO PRN (23:00)
[2023-09-25] VITALS (7 sets, daily range): BP systolic 90–104; BP diastolic 58–80; PULSE 63–87; RESP 16–19; TEMP 97–98.5; O2SAT 96–100
[2023-09-25] MEDS: MIDODRINE HCL 10 MG TAB PO SCH ×3 (05:12→17:36)
[2023-09-25] MEDS: FUROSEMIDE 40 MG/4 ML VIAL IV SCH ×2 (05:14→17:35)
[2023-09-25] MEDS: HYDROcodone-ACET 10/325MG TAB PO PRN ×3 (05:19→18:14)
[2023-09-25 07:07] LABS: Hemoglobin 9.7 g/dL (12.2-16.2)
[2023-09-25 07:08] LABS: Alanine Aminotransferase 18 U/L (7-40); Albumin 3.2 g/dL (3.2-4.8); Alkaline Phosphatase 103 U/L (46-116); Anion Gap 10 (5-15); Aspartate Aminotransferase 34 U/L (13-40); BUN/Creatinine Ratio 22.7 (10.0-20.0); Calcium 8.4 mg/dL (8.7-10.4); Carbon Dioxide 21 mmol/L (20-30); Chloride 104 mmol/L (98-107); Glucose 72 mg/dL (74-106); Potassium 4.6 mmol/L (3.5-5.1); Sodium 135 mmol/L (136-145)
[2023-09-25 07:09] LABS: Bilirubin, Total 2.1 mg/dL (0.2-1.0); Total Protein 5.9 g/dL (5.7-8.2)
[2023-09-25 07:11] LABS: Basophils # (auto) 0.1 10 ^3/uL (0-0.2); Basophils % (auto) 2.2 % (0.0-2.0); Eosinophils # (auto) 0 10 ^3/uL (0-0.8); Eosinophils % (auto) 0.4 % (0.0-7.0); Hematocrit 31.3 % (36.0-46.0); Lymphocytes # (auto) 1.4 10 ^3/uL (0.4-5.4); Lymphocytes % (auto) 20.8 % (10.0-50.0); Mean Corpuscular Hemoglobin 26.2 pg (28.0-32.0); Mean Corpuscular Hgb Conc. 30.8 g/dL (32.0-36.0); Mean Corpuscular Volume 84.9 fL (80.0-100.0); Monocytes # (auto) 0.5 10 ^3/uL (0-1.3); Monocytes % (auto) 7.2 % (0.0-12.0); Neutrophils # (auto) 4.6 10 ^3/uL (1.6-8.6); Neutrophils % (auto) 69.4 % (37.0-80.0); Nucleated Red Blood Cells % 1.7 %; Red Blood Cells 3.69 10^6/uL (4.0-5.20); White Blood Cell 6.6 10^3/uL (4.4-10.8)
[2023-09-25 07:12] LABS: Red Cell Distribution Width 29.8 % (11.8-14.3)
[2023-09-25 07:18] LABS: Blood Urea Nitrogen 41 mg/dL (9-23)
[2023-09-25] MEDS: LACTULOSE 20Gm/30ML SOLN PO SCH (10:00)
[2023-09-25] MEDS: ENOXAPARIN SOD 40 MG/0.4 ML SYRINGE SC SCH (10:00)
[2023-09-25] MEDS: FERROUS SULFATE 325mg EC TAB PO SCH ×2 (10:39→17:36)
[2023-09-25] MEDS: PANTOPRAZOLE 40 MG TAB PO SCH (10:40)
[2023-09-25] MEDS: POTASSIUM CHL 10 Meq TABLET PO SCH (10:40)
[2023-09-25] MEDS: MAGNESIUM OXIDE 400 MG TAB PO SCH (10:40)
[2023-09-25] MEDS: METOPROLOL SUCCINATE XL 50 MG TAB PO SCH (10:41)
[2023-09-25] MEDS: MORPHINE SULF 15mg ER tab PO PRN (11:45)
[2023-09-25 13:27] LABS: Anisocytosis Marked; Platelet Estimate Adequate
[2023-09-25] MEDS: ERTAPENEM SOD INJ 1 GM in SODIUM CHL 0.9% 50 ML IV SCH (17:35)
[2023-09-26] VITALS (7 sets, daily range): BP systolic 92–97; BP diastolic 47–67; PULSE 71–90; RESP 15–20; TEMP 97.3–98; O2SAT 95–98
[2023-09-26 05:32] LABS: Hematocrit 35.3 % (36.0-46.0); Hemoglobin 10.5 g/dL (12.2-16.2); Mean Corpuscular Hemoglobin 26.6 pg (28.0-32.0); Mean Corpuscular Hgb Conc. 29.7 g/dL (32.0-36.0); Mean Corpuscular Volume 89.8 fL (80.0-100.0); Red Blood Cells 3.93 10^6/uL (4.0-5.20); White Blood Cell 5.8 10^3/uL (4.4-10.8)
[2023-09-26] MEDS: HYDROcodone-ACET 10/325MG TAB PO PRN (05:46)
[2023-09-26 05:47] LABS: Alanine Aminotransferase 19 U/L (7-40); Albumin 3.5 g/dL (3.2-4.8); Alkaline Phosphatase 117 U/L (46-116); Anion Gap 13 (5-15); Aspartate Aminotransferase 36 U/L (13-40); BUN/Creatinine Ratio 15.7 (10.0-20.0); Bilirubin, Total 2.2 mg/dL (0.2-1.0); Blood Urea Nitrogen 38 mg/dL (9-23); Calcium 8.8 mg/dL (8.7-10.4); Carbon Dioxide 17 mmol/L (20-30); Chloride 105 mmol/L (98-107); Glucose 58 mg/dL (74-106); Magnesium 2.3 mg/dL (1.6-2.6); Sodium 135 mmol/L (136-145); Total Protein 6.5 g/dL (5.7-8.2)
[2023-09-26] MEDS: MIDODRINE HCL 10 MG TAB PO SCH ×3 (05:47→18:03)
[2023-09-26] MEDS ORDERED: FUROSEMIDE 40 MG/4 ML VIAL IV SCH (06:00)
[2023-09-26 06:10] LABS: Red Cell Distribution Width 29.5 % (11.8-14.3)
[2023-09-26 06:12] LABS: Band Neutrophils % (manual) 0; Blast Cells 0; Metamyelocytes % 0; Myelocytes % 0; Promyelocytes % 0; Reactive Lymphocytes 0
[2023-09-26 06:23] LABS: Potassium 5.7 mmol/L (3.5-5.1)
[2023-09-26] MEDS ORDERED: SODIUM ZIRCONIUM CYCL 10 GM PAK PO ONE ×2 (06:45→17:30)
[2023-09-26] MEDS: FERROUS SULFATE 325mg EC TAB PO SCH ×2 (08:06→18:03)
[2023-09-26 09:23] LABS: Basophils % (manual) 1 (0.0-2.0); Eosinophils % (manual) 1 (0-7); Lymphocytes % (manual) 19 (10.0-50.0); Monocytes % (manual) 6 (0-12)
[2023-09-26 09:24] LABS: Platelet Estimate Adequate
[2023-09-26] MEDS: LACTULOSE 20Gm/30ML SOLN PO SCH ×2 (10:00→10:22)
[2023-09-26] MEDS: METOPROLOL SUCCINATE XL 50 MG TAB PO SCH (10:00)
[2023-09-26] MEDS: MAGNESIUM OXIDE 400 MG TAB PO SCH (10:22)
[2023-09-26] MEDS: PANTOPRAZOLE 40 MG TAB PO SCH (10:22)
[2023-09-26] MEDS: ENOXAPARIN SOD 40 MG/0.4 ML SYRINGE SC SCH (10:22)
[2023-09-26] MEDS: BUMETANIDE 2.5mg/10ml (0.25 mg/ml) INJ IV SCH (18:00)
[2023-09-26] MEDS: ERTAPENEM SOD INJ 1 GM in SODIUM CHL 0.9% 50 ML IV SCH (18:04)
[2023-09-26 18:33] LABS: Urine Epithelial Cast None Seen /hpf (<5)
[2023-09-26 19:00] LABS: Sodium Urine < 10 mmol/L (40-220)
[2023-09-26 19:07] LABS: Creatinine, Urine 228.51 mg/dL (30.0-125.0)
[2023-09-26 19:21] LABS: Urine Bacteria FEW /hpf (None Seen); Urine Blood 2+ /uL (Negative); Urine Clarity HAZY (Clear); Urine Color Yellow (Yellow); Urine Hyaline Cast MANY /lpf (0 - 2); Urine Mucus FEW (None Seen); Urine Protein, UAD 2+ (Negative); Urine Specific Gravity 1.023 (1.001-1.035); Urine WBC 23 /hpf (0 - 5); Urine pH 5.5 (5.0-8.0)
[2023-09-27] VITALS (8 sets, daily range): BP systolic 90–106; BP diastolic 65–80; PULSE 69–79; RESP 16–18; TEMP 96.8–97.6; O2SAT 94–100
[2023-09-27 05:38] LABS: Hematocrit 32.7 % (36.0-46.0); Hemoglobin 10.2 g/dL (12.2-16.2); Mean Corpuscular Hemoglobin 27.3 pg (28.0-32.0); Mean Corpuscular Hgb Conc. 31.2 g/dL (32.0-36.0); Mean Corpuscular Volume 87.5 fL (80.0-100.0); Red Blood Cells 3.73 10^6/uL (4.0-5.20); Red Cell Distribution Width 29.6 % (11.8-14.3); White Blood Cell 4.6 10^3/uL (4.4-10.8)
[2023-09-27] MEDS: BUMETANIDE 2.5mg/10ml (0.25 mg/ml) INJ IV SCH (05:48)
[2023-09-27] MEDS: MIDODRINE HCL 10 MG TAB PO SCH ×3 (05:52→17:44)
[2023-09-27 06:15] LABS: Alanine Aminotransferase 18 U/L (7-40); Alkaline Phosphatase 119 U/L (46-116); Anion Gap 11 (5-15); BUN/Creatinine Ratio 18.8 (10.0-20.0); Blood Urea Nitrogen 44 mg/dL (9-23); Calcium 8.5 mg/dL (8.7-10.4); Carbon Dioxide 21 mmol/L (20-30); Chloride 103 mmol/L (98-107); Glucose 103 mg/dL (74-106); Magnesium 2.3 mg/dL (1.6-2.6); Potassium 4.3 mmol/L (3.5-5.1); Sodium 135 mmol/L (136-145)
[2023-09-27 06:16] LABS: Albumin 3.2 g/dL (3.2-4.8); Aspartate Aminotransferase 32 U/L (13-40); Bilirubin, Total 1.9 mg/dL (0.2-1.0); Total Protein 6.2 g/dL (5.7-8.2)
[2023-09-27 07:11] LABS: Band Neutrophils % (manual) 0; Basophils % (manual) 0 (0.0-2.0); Blast Cells 0; Eosinophils % (manual) 0 (0-7); Metamyelocytes % 0; Monocytes % (manual) 0 (0-12); Myelocytes % 0; Promyelocytes % 0; Reactive Lymphocytes 0
[2023-09-27 08:13] LABS: Anisocytosis Moderate; Lymphocytes % (manual) 22 (10.0-50.0); Platelet Estimate Adequate
[2023-09-27] MEDS: FERROUS SULFATE 325mg EC TAB PO SCH ×2 (08:18→17:43)
[2023-09-27] MEDS: metOLazone 5 MG TAB PO SCH ×2 (08:26→09:46)
[2023-09-27] MEDS: ENOXAPARIN SOD 40 MG/0.4 ML SYRINGE SC SCH (09:46)
[2023-09-27] MEDS: MAGNESIUM OXIDE 400 MG TAB PO SCH (09:46)
[2023-09-27] MEDS: LACTULOSE 20Gm/30ML SOLN PO SCH ×2 (09:47→22:00)
[2023-09-27] MEDS: PANTOPRAZOLE 40 MG TAB PO SCH (09:47)
[2023-09-27] MEDS: METOPROLOL SUCCINATE XL 50 MG TAB PO SCH (09:47)
[2023-09-27] MEDS: BUMETANIDE INJECTION 25 MG in GIVE UN-DILUTED 0 ML IV SCH (14:20)
[2023-09-27] MEDS: ERTAPENEM SOD INJ 1 GM in SODIUM CHL 0.9% 50 ML IV SCH (17:44)
[2023-09-28] VITALS (7 sets, daily range): BP systolic 94–112; BP diastolic 57–80; PULSE 77–87; RESP 16–19; TEMP 97.3–97.9; O2SAT 95–100
[2023-09-28 05:18] LABS: Basophils # (auto) 0.1 10 ^3/uL (0-0.2); Eosinophils # (auto) 0 10 ^3/uL (0-0.8); Lymphocytes % (auto) 24.1 % (10.0-50.0)
[2023-09-28 05:21] LABS: Basophils % (auto) 2.1 % (0.0-2.0); Eosinophils % (auto) 0.7 % (0.0-7.0); Hematocrit 33.3 % (36.0-46.0); Hemoglobin 10.5 g/dL (12.2-16.2); Lymphocytes # (auto) 1.2 10 ^3/uL (0.4-5.4); Mean Corpuscular Hemoglobin 27.2 pg (28.0-32.0); Mean Corpuscular Hgb Conc. 31.5 g/dL (32.0-36.0); Mean Corpuscular Volume 86.3 fL (80.0-100.0); Monocytes # (auto) 0.4 10 ^3/uL (0-1.3); Monocytes % (auto) 8.4 % (0.0-12.0); Neutrophils # (auto) 3.2 10 ^3/uL (1.6-8.6); Neutrophils % (auto) 64.7 % (37.0-80.0); Red Blood Cells 3.86 10^6/uL (4.0-5.20)
[2023-09-28 05:26] LABS: Alanine Aminotransferase 14 U/L (7-40); Albumin 3.3 g/dL (3.2-4.8); Alkaline Phosphatase 130 U/L (46-116); Anion Gap 8 (5-15); Aspartate Aminotransferase 30 U/L (13-40); BUN/Creatinine Ratio 23.7 (10.0-20.0); Blood Urea Nitrogen 42 mg/dL (9-23); Calcium 8.6 mg/dL (8.7-10.4); Carbon Dioxide 26 mmol/L (20-30); Chloride 101 mmol/L (98-107); Glucose 87 mg/dL (74-106); Lipase 22 U/L (12-53); Magnesium 2.2 mg/dL (1.6-2.6); Potassium 3.7 mmol/L (3.5-5.1); Sodium 135 mmol/L (136-145)
[2023-09-28 05:27] LABS: Bilirubin, Total 1.8 mg/dL (0.2-1.0); Total Protein 6.3 g/dL (5.7-8.2)
[2023-09-28 05:39] LABS: Red Cell Distribution Width 29.3 % (11.8-14.3)
[2023-09-28] MEDS: HYDROcodone-ACET 10/325MG TAB PO PRN ×2 (06:58→16:34)
[2023-09-28] MEDS: MIDODRINE HCL 10 MG TAB PO SCH ×3 (06:59→18:20)
[2023-09-28] MEDS ORDERED: POTASSIUM EFFERVESENT TAB 25 MEQ PO ONE (07:15)
[2023-09-28] MEDS: FERROUS SULFATE 325mg EC TAB PO SCH ×2 (08:07→18:19)
[2023-09-28] MEDS ORDERED: ENOXAPARIN SOD 30 MG/0.3 ML SYRINGE SC SCH (10:00)
[2023-09-28] MEDS: METOPROLOL SUCCINATE XL 50 MG TAB PO SCH (10:00)
[2023-09-28] MEDS: LACTULOSE 20Gm/30ML SOLN PO SCH ×2 (10:07→21:05)
[2023-09-28] MEDS: metOLazone 5 MG TAB PO SCH (10:08)
[2023-09-28] MEDS: PANTOPRAZOLE 40 MG TAB PO SCH (10:08)
[2023-09-28] MEDS: MAGNESIUM OXIDE 400 MG TAB PO SCH (10:08)
[2023-09-28] MEDS: BUMETANIDE INJECTION 25 MG in GIVE UN-DILUTED 0 ML IV SCH ×2 (12:15→15:36)
[2023-09-28 13:19] LABS: Platelet Estimate Adequate
[2023-09-28 13:20] LABS: Anisocytosis Marked; Target Cell FEW
[2023-09-28] MEDS ORDERED: POTASSIUM CHL 20 Meq TABLET PO ONE (14:45)
[2023-09-28] MEDS ORDERED: ERTAPENEM SOD INJ 0.5 GM in SODIUM CHL 0.9% 50 ML IV SCH (18:00)
[2023-09-28] MEDS: MORPHINE SULF 15mg ER tab PO PRN (23:12)
[2023-09-29] VITALS (7 sets, daily range): BP systolic 100–107; BP diastolic 67–79; PULSE 74–87; RESP 15–20; TEMP 97.5–98.5; O2SAT 95–100
[2023-09-29] MEDS: HYDROcodone-ACET 10/325MG TAB PO PRN ×3 (03:18→17:04)
[2023-09-29] MEDS: MIDODRINE HCL 10 MG TAB PO SCH ×3 (05:09→17:04)
[2023-09-29 05:15] LABS: Hemoglobin 11.7 g/dL (12.2-16.2); Mean Corpuscular Hemoglobin 27.1 pg (28.0-32.0); Mean Corpuscular Hgb Conc. 31.6 g/dL (32.0-36.0); Mean Corpuscular Volume 85.5 fL (80.0-100.0); Red Blood Cells 4.33 10^6/uL (4.0-5.20)
[2023-09-29 05:23] LABS: Red Cell Distribution Width 31.8 % (11.8-14.3)
[2023-09-29 05:24] LABS: Basophils % (manual) 0 (0.0-2.0); Blast Cells 0; Myelocytes % 0; Reactive Lymphocytes 0
[2023-09-29 05:40] LABS: Alanine Aminotransferase 13 U/L (7-40); Albumin 3.2 g/dL (3.2-4.8); Alkaline Phosphatase 134 U/L (46-116); Anion Gap 5 (5-15); Aspartate Aminotransferase 31 U/L (13-40); BUN/Creatinine Ratio 22.7 (10.0-20.0); Bilirubin, Total 1.8 mg/dL (0.2-1.0); Blood Urea Nitrogen 35 mg/dL (9-23); Calcium 8.8 mg/dL (8.5-10.1); Carbon Dioxide 34 mmol/L (20-30); Chloride 99 mmol/L (98-107); Glucose 96 mg/dL (74-106); Potassium 3.3 mmol/L (3.5-5.1); Sodium 138 mmol/L (136-145); Total Protein 6.2 g/dL (5.7-8.2)
[2023-09-29 05:48] LABS: CRP High Sensitivity 1.97 mg/dL (<1.0)
[2023-09-29 06:02] LABS: Magnesium 1.7 mg/dL (1.6-2.6)
[2023-09-29] MEDS ORDERED: POTASSIUM CHL 20 Meq TABLET PO ONE (07:45)
[2023-09-29] MEDS ORDERED: MAGNESIUM SULFATE 1GM/100ML 100 ML IV ONE (08:00)
[2023-09-29 08:21] LABS: Band Neutrophils % (manual) 1; Eosinophils % (manual) 2 (0-7); Lymphocytes % (manual) 25 (10.0-50.0); Metamyelocytes % 1; Monocytes % (manual) 7 (0-12); Promyelocytes % 1
[2023-09-29 08:22] LABS: Platelet Estimate Adequate
[2023-09-29] MEDS: ENOXAPARIN SOD 40 MG/0.4 ML SYRINGE SC SCH (09:21)
[2023-09-29] MEDS: metOLazone 5 MG TAB PO SCH (09:22)
[2023-09-29] MEDS: FERROUS SULFATE 325mg EC TAB PO SCH ×2 (09:23→17:04)
[2023-09-29] MEDS: MAGNESIUM OXIDE 400 MG TAB PO SCH (09:24)
[2023-09-29] MEDS: PANTOPRAZOLE 40 MG TAB PO SCH (09:24)
[2023-09-29] MEDS: METOPROLOL SUCCINATE XL 50 MG TAB PO SCH (09:26)
[2023-09-29] MEDS: ERTAPENEM SOD INJ 1 GM in SODIUM CHL 0.9% 50 ML IV SCH ×2 (09:27→11:39)
[2023-09-29] MEDS: LACTULOSE 20Gm/30ML SOLN PO SCH ×2 (10:00→22:00)
[2023-09-29] MEDS: MORPHINE SULF 15mg ER tab PO PRN ×2 (11:49→20:36)
[2023-09-29] MEDS: BUMETANIDE 2.5mg/10ml (0.25 mg/ml) INJ IV SCH (17:05)
[2023-09-29] MEDS: LINEZOLID 600MG/300ML 300 ML IV SCH (22:42)
[2023-09-30] VITALS (7 sets, daily range): BP systolic 90–110; BP diastolic 53–74; PULSE 77–87; RESP 15–16; TEMP 97.8–98.2; O2SAT 94–98
[2023-09-30] MEDS: BUMETANIDE 2.5mg/10ml (0.25 mg/ml) INJ IV SCH (05:26)
[2023-09-30] MEDS: MIDODRINE HCL 10 MG TAB PO SCH ×3 (05:27→17:34)
[2023-09-30 05:29] LABS: Basophils # (auto) 0.1 10 ^3/uL (0-0.2); Basophils % (auto) 1.9 % (0.0-2.0); Eosinophils # (auto) 0 10 ^3/uL (0-0.8); Hematocrit 39.6 % (36.0-46.0); Hemoglobin 12.3 g/dL (12.2-16.2); Lymphocytes # (auto) 1.1 10 ^3/uL (0.4-5.4); Mean Corpuscular Hemoglobin 26.9 pg (28.0-32.0); Mean Corpuscular Hgb Conc. 31.1 g/dL (32.0-36.0); Mean Corpuscular Volume 86.7 fL (80.0-100.0); Monocytes # (auto) 0.6 10 ^3/uL (0-1.3); Monocytes % (auto) 10.8 % (0.0-12.0); Neutrophils # (auto) 3.4 10 ^3/uL (1.6-8.6); Neutrophils % (auto) 65.3 % (37.0-80.0); Nucleated Red Blood Cells % 0.4 %; Red Blood Cells 4.57 10^6/uL (4.0-5.20); White Blood Cell 5.2 10^3/uL (4.4-10.8)
[2023-09-30 05:31] LABS: Red Cell Distribution Width 31.2 % (11.8-14.3)
[2023-09-30] MEDS: MORPHINE SULF 15mg ER tab PO PRN ×2 (05:35→14:46)
[2023-09-30 05:40] LABS: Albumin 3.3 g/dL (3.2-4.8); Alkaline Phosphatase 129 U/L (46-116); Anion Gap 5 (5-15); Aspartate Aminotransferase 30 U/L (13-40); BUN/Creatinine Ratio 25.2 (10.0-20.0); Bilirubin, Total 1.8 mg/dL (0.2-1.0); Blood Urea Nitrogen 32 mg/dL (9-23); Calcium 8.9 mg/dL (8.7-10.4); Carbon Dioxide 40 mmol/L (20-30); Chloride 94 mmol/L (98-107); Glucose 97 mg/dL (74-106); Magnesium 1.7 mg/dL (1.6-2.6); Sodium 139 mmol/L (136-145); Total Protein 6.3 g/dL (5.7-8.2)
[2023-09-30 05:46] LABS: Alanine Aminotransferase 12 U/L (7-40)
[2023-09-30] MEDS ORDERED: MAGNESIUM SULFATE 1GM/100ML 100 ML IV ONE (08:00)
[2023-09-30] MEDS ORDERED: POTASSIUM CHLORIDE 60 MEQ, LIDOCAINE 1% (LOCAL ANESTH.) 6 ML in SODIUM CHL 0.9% 500 ML IV ONE (08:00)
[2023-09-30 08:11] LABS: Anisocytosis Marked; Ovalocytes MODERATE; Stomatocytes Moderate
[2023-09-30 08:12] LABS: Platelet Estimate Adequate; Target Cell MODERATE; Tear Drop Cells FEW
[2023-09-30] MEDS ORDERED: acetaZOLAMIDE SODIUM 500 MG VL IV ONE (08:45)
[2023-09-30] MEDS: ENOXAPARIN SOD 40 MG/0.4 ML SYRINGE SC SCH (09:30)
[2023-09-30] MEDS: PANTOPRAZOLE 40 MG TAB PO SCH (09:30)
[2023-09-30] MEDS: FERROUS SULFATE 325mg EC TAB PO SCH ×2 (09:30→17:34)
[2023-09-30] MEDS: MAGNESIUM OXIDE 400 MG TAB PO SCH (09:31)
[2023-09-30] MEDS: metOLazone 5 MG TAB PO SCH (09:31)
[2023-09-30] MEDS: METOPROLOL SUCCINATE XL 50 MG TAB PO SCH (09:35)
[2023-09-30] MEDS: LINEZOLID 600MG/300ML 300 ML IV SCH ×2 (09:45→21:44)
[2023-09-30] MEDS: LACTULOSE 20Gm/30ML SOLN PO SCH ×2 (10:00→21:49)
[2023-09-30] MEDS ORDERED: LINE1TAB6 PO (10:33)
[2023-09-30] MEDS: ERTAPENEM SOD INJ 1 GM in SODIUM CHL 0.9% 50 ML IV SCH (11:30)
[2023-09-30] MEDS ORDERED: BUMETANIDE 2.5mg/10ml (0.25 mg/ml) INJ IV SCH (22:00)
[2023-10-01 05:00] VITALS: BP 96/58; PULSE 80; RESP 16; TEMP 98; O2SAT 98
[2023-10-01] MEDS: MORPHINE SULF 15mg ER tab PO PRN ×2 (05:14→13:25)
[2023-10-01] MEDS: MIDODRINE HCL 10 MG TAB PO SCH ×3 (05:14→18:13)
[2023-10-01 06:55] LABS: Alanine Aminotransferase 12 U/L (7-40); Alkaline Phosphatase 118 U/L (46-116); Calcium 8.6 mg/dL (8.7-10.4); Chloride 91 mmol/L (98-107); Glucose 85 mg/dL (74-106); Potassium 3.2 mmol/L (3.5-5.1); Sodium 136 mmol/L (136-145)
[2023-10-01 06:56] LABS: BUN/Creatinine Ratio 28.3 (10.0-20.0); Blood Urea Nitrogen 32 mg/dL (9-23); Magnesium 1.8 mg/dL (1.6-2.6)
[2023-10-01 06:57] LABS: Albumin 2.8 g/dL (3.2-4.8); Aspartate Aminotransferase 30 U/L (13-40)
[2023-10-01 06:58] LABS: Bilirubin, Total 1.6 mg/dL (0.2-1.0); Total Protein 5.3 g/dL (5.7-8.2)
[2023-10-01 06:59] LABS: Anion Gap 4.99999 (5-15)
[2023-10-01 07:02] LABS: Basophils # (auto) 0.1 10 ^3/uL (0-0.2); Basophils % (auto) 1.9 % (0.0-2.0); Carbon Dioxide > 40 mmol/L (20-30); Eosinophils # (auto) 0.1 10 ^3/uL (0-0.8); Eosinophils % (auto) 1.6 % (0.0-7.0); Hematocrit 44.6 % (36.0-46.0); Lymphocytes # (auto) 1.3 10 ^3/uL (0.4-5.4); Lymphocytes % (auto) 19.7 % (10.0-50.0); Mean Corpuscular Hemoglobin 27.5 pg (28.0-32.0); Mean Corpuscular Hgb Conc. 31.5 g/dL (32.0-36.0); Mean Corpuscular Volume 87.3 fL (80.0-100.0); Monocytes # (auto) 0.7 10 ^3/uL (0-1.3); Monocytes % (auto) 10.1 % (0.0-12.0); Neutrophils # (auto) 4.4 10 ^3/uL (1.6-8.6); Neutrophils % (auto) 66.7 % (37.0-80.0); Nucleated Red Blood Cells % 0.6 %; Red Blood Cells 5.11 10^6/uL (4.0-5.20); White Blood Cell 6.5 10^3/uL (4.4-10.8)
[2023-10-01 07:09] LABS: Red Cell Distribution Width 32.1 % (11.8-14.3)
[2023-10-01] MEDS ORDERED: POTASSIUM CHLORIDE 60 MEQ, LIDOCAINE 1% (LOCAL ANESTH.) 6 ML in SODIUM CHL 0.9% 500 ML IV ONE (07:30)
[2023-10-01] MEDS ORDERED: acetaZOLAMIDE SODIUM 500 MG VL IV ONE ×2 (07:30→22:00)
[2023-10-01 08:00] VITALS: PULSE 70; PULSE 75; RESP 19
[2023-10-01 09:55] VITALS: BP 99/69; PULSE 75; RESP 19; TEMP 97.5; O2SAT 99
[2023-10-01] MEDS: LACTULOSE 20Gm/30ML SOLN PO SCH ×2 (10:00→22:35)
[2023-10-01] MEDS ORDERED: SPIRONOLACTONE 25 MG TAB PO SCH (10:00)
[2023-10-01] MEDS: MAGNESIUM SULFATE 1GM/100ML 100 ML IV SCH ×2 (10:11→13:03)
[2023-10-01] MEDS: LINEZOLID 600MG/300ML 300 ML IV SCH ×2 (10:20→21:54)
[2023-10-01] MEDS: PANTOPRAZOLE 40 MG TAB PO SCH (10:25)
[2023-10-01] MEDS: FERROUS SULFATE 325mg EC TAB PO SCH ×2 (10:25→18:12)
[2023-10-01] MEDS: MAGNESIUM OXIDE 400 MG TAB PO SCH (10:25)
[2023-10-01] MEDS: METOPROLOL SUCCINATE XL 50 MG TAB PO SCH (10:26)
[2023-10-01] MEDS: ENOXAPARIN SOD 40 MG/0.4 ML SYRINGE SC SCH (10:27)
[2023-10-01] MEDS: ERTAPENEM SOD INJ 1 GM in SODIUM CHL 0.9% 50 ML IV SCH (12:43)
[2023-10-01 13:01] VITALS: BP 96/59; PULSE 72; RESP 20; TEMP 97.6; O2SAT 99
[2023-10-01 13:58] LABS: Chloride 92 mmol/L (98-107); Potassium 3.3 mmol/L (3.5-5.1); Sodium 136 mmol/L (136-145)
[2023-10-01 13:59] LABS: Calcium 8.8 mg/dL (8.5-10.1)
[2023-10-01 14:04] LABS: BUN/Creatinine Ratio 18.1 (10.0-20.0); Blood Urea Nitrogen 21 mg/dL (9-23); Glucose 101 mg/dL (74-106)
[2023-10-01 14:06] LABS: Anion Gap 3.99999 (5-15)
[2023-10-01 14:07] LABS: Carbon Dioxide > 40 mmol/L (20-30)
[2023-10-01] MEDS ORDERED: SPIRONOLACTONE 25 MG TAB PO ONE (14:30)
[2023-10-01 16:56] VITALS: BP 100/59; PULSE 78; RESP 19; TEMP 97.5; O2SAT 95
[2023-10-01 20:00] VITALS: BP 83/56; PULSE 76; PULSE 78; RESP 18; TEMP 97.8; O2SAT 100
[2023-10-01] MEDS ORDERED: BUMETANIDE 2.5mg/10ml (0.25 mg/ml) INJ IV SCH (22:00)
[2023-10-02] VITALS (8 sets, daily range): BP systolic 54–121; BP diastolic 55–90; PULSE 72–99; RESP 16–20; TEMP 97.4–98.5; O2SAT 86–100
[2023-10-02] MEDS: MORPHINE SULF 15mg ER tab PO SCH ×4 (04:30→22:27)
[2023-10-02] MEDS: MIDODRINE HCL 10 MG TAB PO SCH ×3 (05:04→17:15)
[2023-10-02 06:31] LABS: Basophils # (auto) 0.1 10 ^3/uL (0-0.2); Basophils % (auto) 1.3 % (0.0-2.0); Eosinophils # (auto) 0.1 10 ^3/uL (0-0.8); Monocytes # (auto) 0.8 10 ^3/uL (0-1.3)
[2023-10-02 06:36] LABS: Eosinophils % (auto) 1.7 % (0.0-7.0); Hematocrit 47.9 % (36.0-46.0); Hemoglobin 14.5 g/dL (12.2-16.2); Lymphocytes # (auto) 1.8 10 ^3/uL (0.4-5.4); Lymphocytes % (auto) 25.4 % (10.0-50.0); Mean Corpuscular Hemoglobin 27.9 pg (28.0-32.0); Mean Corpuscular Hgb Conc. 30.3 g/dL (32.0-36.0); Mean Corpuscular Volume 91.8 fL (80.0-100.0); Monocytes % (auto) 11.7 % (0.0-12.0); Neutrophils # (auto) 4.3 10 ^3/uL (1.6-8.6); Neutrophils % (auto) 59.9 % (37.0-80.0); Nucleated Red Blood Cells % 0.1 %; Red Blood Cells 5.21 10^6/uL (4.0-5.20); White Blood Cell 7.2 10^3/uL (4.4-10.8)
[2023-10-02 06:43] LABS: Alanine Aminotransferase 9 U/L (7-40); Albumin 2.5 g/dL (3.2-4.8); Alkaline Phosphatase 118 U/L (46-116); Anion Gap 5 (5-15); Aspartate Aminotransferase 39 U/L (13-40); Bilirubin, Total 1.5 mg/dL (0.2-1.0); Blood Urea Nitrogen 14 mg/dL (9-23); Calcium 8.4 mg/dL (8.7-10.4); Carbon Dioxide 34 mmol/L (20-30); Chloride 94 mmol/L (98-107); Glucose 72 mg/dL (74-106); Magnesium 2.7 mg/dL (1.6-2.6); Potassium 3.5 mmol/L (3.5-5.1); Sodium 133 mmol/L (136-145); Total Protein 5.2 g/dL (5.7-8.2)
[2023-10-02] MEDS ORDERED: POTASSIUM CHLORIDE 40 MEQ, LIDOCAINE 1% (LOCAL ANESTH.) 4 ML in SODIUM CHL 0.9% 250 ML IV ONE (07:00)
[2023-10-02 07:01] LABS: Red Cell Distribution Width 32.4 % (11.8-14.3)
[2023-10-02] MEDS: SPIRONOLACTONE 25 MG TAB PO SCH ×2 (07:31→08:29)
[2023-10-02 07:57] LABS: Anisocytosis Moderate; Hypochromia Slight; Platelet Estimate Adequate
[2023-10-02] MEDS: PANTOPRAZOLE 40 MG TAB PO SCH (08:27)
[2023-10-02] MEDS: FERROUS SULFATE 325mg EC TAB PO SCH ×2 (08:28→17:15)
[2023-10-02] MEDS: MAGNESIUM OXIDE 400 MG TAB PO SCH (08:29)
[2023-10-02] MEDS: ENOXAPARIN SOD 40 MG/0.4 ML SYRINGE SC SCH (08:29)
[2023-10-02] MEDS: LACTULOSE 20Gm/30ML SOLN PO SCH ×2 (08:46→22:00)
[2023-10-02] MEDS: METOPROLOL SUCCINATE XL 50 MG TAB PO SCH (08:46)
[2023-10-02] MEDS: LINEZOLID 600MG/300ML 300 ML IV SCH ×2 (10:00→22:00)
[2023-10-02] MEDS: ERTAPENEM SOD INJ 1 GM in SODIUM CHL 0.9% 50 ML IV SCH (10:00)
[2023-10-03] VITALS (8 sets, daily range): BP systolic 81–90; BP diastolic 52–63; PULSE 56–84; RESP 15–18; TEMP 98–98.4; O2SAT 92–100
[2023-10-03] MEDS: MORPHINE SULF 15mg ER tab PO SCH ×3 (05:02→22:44)
[2023-10-03] MEDS: MIDODRINE HCL 10 MG TAB PO SCH ×3 (05:03→18:20)
[2023-10-03] MEDS ORDERED: BUMETANIDE 1 MG TAB PO ONE (07:00)
[2023-10-03 08:08] LABS: Alanine Aminotransferase 13 U/L (7-40); Alkaline Phosphatase 119 U/L (46-116); Anion Gap 5 (5-15); BUN/Creatinine Ratio 12.9 (10.0-20.0); Blood Urea Nitrogen 16 mg/dL (9-23); Calcium 8.9 mg/dL (8.5-10.1); Carbon Dioxide 35 mmol/L (20-30); Chloride 95 mmol/L (98-107); Glucose 70 mg/dL (74-106); Sodium 135 mmol/L (136-145)
[2023-10-03 08:09] LABS: Albumin 2.8 g/dL (3.2-4.8); Aspartate Aminotransferase 43 U/L (13-40); Bilirubin, Total 1.9 mg/dL (0.2-1.0); Total Protein 5.7 g/dL (5.7-8.2)
[2023-10-03 08:20] LABS: Basophils # (auto) 0.1 10 ^3/uL (0-0.2); Basophils % (auto) 1.4 % (0.0-2.0); Eosinophils # (auto) 0.2 10 ^3/uL (0-0.8); Eosinophils % (auto) 2.6 % (0.0-7.0); Hematocrit 48.3 % (36.0-46.0); Hemoglobin 14.5 g/dL (12.2-16.2); Lymphocytes # (auto) 1.7 10 ^3/uL (0.4-5.4); Mean Corpuscular Hemoglobin 27.2 pg (28.0-32.0); Mean Corpuscular Hgb Conc. 29.9 g/dL (32.0-36.0); Monocytes # (auto) 0.7 10 ^3/uL (0-1.3); Monocytes % (auto) 9.7 % (0.0-12.0); Neutrophils # (auto) 4.2 10 ^3/uL (1.6-8.6); Neutrophils % (auto) 61.3 % (37.0-80.0); Nucleated Red Blood Cells % 0.3 %; Red Blood Cells 5.31 10^6/uL (4.0-5.20); White Blood Cell 6.9 10^3/uL (4.4-10.8)
[2023-10-03 08:21] LABS: Red Cell Distribution Width 31.9 % (11.8-14.3)
[2023-10-03 08:41] LABS: Magnesium 2.6 mg/dL (1.6-2.6)
[2023-10-03] MEDS ORDERED: acetaZOLAMIDE SODIUM 500 MG VL IV ONE (08:45)
[2023-10-03 09:38] LABS: Anisocytosis Marked; Ovalocytes MODERATE; Platelet Estimate Adequate
[2023-10-03] MEDS: METOPROLOL SUCCINATE XL 50 MG TAB PO SCH (10:00)
[2023-10-03] MEDS: LACTULOSE 20Gm/30ML SOLN PO SCH ×2 (10:00→22:00)
[2023-10-03] MEDS: FERROUS SULFATE 325mg EC TAB PO SCH ×2 (10:33→18:20)
[2023-10-03] MEDS: ERTAPENEM SOD INJ 1 GM in SODIUM CHL 0.9% 50 ML IV SCH (10:33)
[2023-10-03] MEDS: MAGNESIUM OXIDE 400 MG TAB PO SCH (10:34)
[2023-10-03] MEDS: SPIRONOLACTONE 25 MG TAB PO SCH (10:34)
[2023-10-03] MEDS: LINEZOLID 600MG/300ML 300 ML IV SCH ×2 (10:34→22:45)
[2023-10-03] MEDS: PANTOPRAZOLE 40 MG TAB PO SCH (10:34)
[2023-10-03] MEDS: ENOXAPARIN SOD 40 MG/0.4 ML SYRINGE SC SCH (10:35)
[2023-10-03] MEDS: BUMETANIDE 1 MG TAB PO SCH (18:20)
[2023-10-04] VITALS (13 sets, daily range): BP systolic 73–100; BP diastolic 48–67; PULSE 76–115; RESP 16–19; TEMP 97.5–98.3; O2SAT 92–99
[2023-10-04] MEDS: BUMETANIDE 1 MG TAB PO SCH ×2 (06:00→17:39)
[2023-10-04] MEDS: MORPHINE SULF 15mg ER tab PO SCH ×3 (07:01→22:00)
[2023-10-04] MEDS: MIDODRINE HCL 10 MG TAB PO SCH ×3 (07:01→17:57)
[2023-10-04] MEDS: SPIRONOLACTONE 25 MG TAB PO SCH (09:39)
[2023-10-04] MEDS: FERROUS SULFATE 325mg EC TAB PO SCH ×2 (09:39→17:57)
[2023-10-04] MEDS: MAGNESIUM OXIDE 400 MG TAB PO SCH (09:39)
[2023-10-04] MEDS: PANTOPRAZOLE 40 MG TAB PO SCH (09:39)
[2023-10-04] MEDS: ERTAPENEM SOD INJ 1 GM in SODIUM CHL 0.9% 50 ML IV SCH (09:40)
[2023-10-04] MEDS: ENOXAPARIN SOD 40 MG/0.4 ML SYRINGE SC SCH (09:40)
[2023-10-04] MEDS: LACTULOSE 20Gm/30ML SOLN PO SCH ×2 (09:47→22:00)
[2023-10-04] MEDS: METOPROLOL SUCCINATE XL 50 MG TAB PO SCH (09:48)
[2023-10-04] MEDS: LINEZOLID 600MG/300ML 300 ML IV SCH ×2 (10:28→22:25)
[2023-10-05 05:00] VITALS: BP 80/58; PULSE 83; RESP 18; TEMP 97.5; O2SAT 95
[2023-10-05] MEDS: BUMETANIDE 1 MG TAB PO SCH ×2 (06:07→17:45)
[2023-10-05] MEDS: MIDODRINE HCL 10 MG TAB PO SCH ×3 (06:09→17:51)
[2023-10-05] MEDS: MORPHINE SULF 15mg ER tab PO SCH (06:15)
[2023-10-05 06:23] LABS: Basophils # (auto) 0.1 10 ^3/uL (0-0.2); Hemoglobin 14.4 g/dL (12.2-16.2); Lymphocytes # (auto) 1.5 10 ^3/uL (0.4-5.4); Monocytes # (auto) 0.5 10 ^3/uL (0-1.3); White Blood Cell 5.6 10^3/uL (4.4-10.8)
[2023-10-05 06:26] LABS: Basophils % (auto) 1.5 % (0.0-2.0); Eosinophils # (auto) 0.2 10 ^3/uL (0-0.8); Eosinophils % (auto) 2.7 % (0.0-7.0); Hematocrit 45.7 % (36.0-46.0); Lymphocytes % (auto) 27.5 % (10.0-50.0); Mean Corpuscular Hemoglobin 27.7 pg (28.0-32.0); Mean Corpuscular Hgb Conc. 31.6 g/dL (32.0-36.0); Mean Corpuscular Volume 87.7 fL (80.0-100.0); Monocytes % (auto) 8.3 % (0.0-12.0); Neutrophils # (auto) 3.4 10 ^3/uL (1.6-8.6); Nucleated Red Blood Cells % 0.2 %; Red Blood Cells 5.21 10^6/uL (4.0-5.20)
[2023-10-05 06:39] LABS: Red Cell Distribution Width 30.9 % (11.8-14.3)
[2023-10-05 06:42] LABS: Alanine Aminotransferase 10 U/L (7-40); Albumin 2.8 g/dL (3.2-4.8); Alkaline Phosphatase 125 U/L (46-116); Anion Gap 7 (5-15); Aspartate Aminotransferase 39 U/L (13-40); BUN/Creatinine Ratio 13.8 (10.0-20.0); Blood Urea Nitrogen 22 mg/dL (9-23); Calcium 8.6 mg/dL (8.7-10.4); Carbon Dioxide 37 mmol/L (20-30); Chloride 92 mmol/L (98-107); Glucose 62 mg/dL (74-106); Potassium 3.1 mmol/L (3.5-5.1); Sodium 136 mmol/L (136-145); Total Protein 5.6 g/dL (5.7-8.2)
[2023-10-05 06:47] LABS: Bilirubin, Total 2.6 mg/dL (0.2-1.0)
[2023-10-05] MEDS ORDERED: POTASSIUM CHLORIDE 60 MEQ, LIDOCAINE 1% (LOCAL ANESTH.) 6 ML in SODIUM CHL 0.9% 500 ML IV ONE (07:30)
[2023-10-05 08:00] VITALS: BP 81/60; PULSE 72; PULSE 74; RESP 16; TEMP 98; O2SAT 99
[2023-10-05 08:02] LABS: Anisocytosis Moderate
[2023-10-05 08:03] LABS: Platelet Estimate Adequate; Target Cell FEW; Tear Drop Cells FEW
[2023-10-05] MEDS: FERROUS SULFATE 325mg EC TAB PO SCH ×2 (08:12→17:51)
[2023-10-05 09:00] VITALS: BP 81/60; PULSE 72; RESP 16; TEMP 98; O2SAT 99
[2023-10-05] MEDS ORDERED: SPIRONOLACTONE 25 MG TAB PO SCH (10:00)
[2023-10-05] MEDS: LACTULOSE 20Gm/30ML SOLN PO SCH (10:00)
[2023-10-05] MEDS: METOPROLOL SUCCINATE XL 50 MG TAB PO SCH (10:00)
[2023-10-05] MEDS: MAGNESIUM OXIDE 400 MG TAB PO SCH (10:05)
[2023-10-05] MEDS: ENOXAPARIN SOD 40 MG/0.4 ML SYRINGE SC SCH ×2 (10:05→10:36)
[2023-10-05] MEDS: PANTOPRAZOLE 40 MG TAB PO SCH (10:05)
[2023-10-05] MEDS ORDERED: LINEZOLID 600MG TABLET PO SCH (11:45)
[2023-10-05 13:00] VITALS: BP 81/63; PULSE 89; RESP 16; TEMP 97.6; O2SAT 97
[2023-10-05 13:22] LABS: Potassium 3.4 mmol/L (3.5-5.1)
[2023-10-05 13:29] LABS: Magnesium 2.4 mg/dL (1.6-2.6)
[2023-10-05 17:00] VITALS: BP 90/64; PULSE 87; RESP 17; TEMP 97.7; O2SAT 92
[2023-10-05] MEDS ORDERED: MORPHINE SULF 15mg ER tab PO SCH (22:00)
[2023-10-06] MEDS ORDERED: SPIRONOLACTONE 25 MG TAB PO SCH ×2 (10:00)
== END 2023-10-05 19:40 | disposition hospice, home (50) | DRG 133 ==
LOC: ER 19:52 → EDBD 19:52 → TELE 22:54 → TELE-CENTR 22:54
PROVIDERS: ADMIT Internal Medicine Geriatric Medicine; ATTEND Internal Medicine
PROC: 05HB33Z Insertion of Infusion Device into Right Basilic Vein, Percutaneous Approach (ICD-10-PCS; principal; 2023-09-30)
PROC: B54MZZA Ultrasonography of Right Upper Extremity Veins, Guidance (ICD-10-PCS; 2023-09-30)
DX: J96.20 Acute and chronic respiratory failure, unspecified whether with hypoxia or hypercapnia (principal); K76.7 Hepatorenal syndrome; N17.0 Acute kidney failure with tubular necrosis; I50.23 Acute on chronic systolic (congestive) heart failure; J18.9 Pneumonia, unspecified organism; I21.A1 Myocardial infarction type 2; I82.412 Acute embolism and thrombosis of left femoral vein; I13.0 Hypertensive heart and chronic kidney disease with heart failure and stage 1 through stage 4 chronic kidney disease, or unspecified chronic kidney disease; E87.1 Hypo-osmolality and hyponatremia; I42.0 Dilated cardiomyopathy; I47.20 Ventricular tachycardia, unspecified; R18.8 Other ascites; F19.90 Other psychoactive substance use, unspecified, uncomplicated; K74.60 Unspecified cirrhosis of liver; E87.6 Hypokalemia; D50.9 Iron deficiency anemia, unspecified; E87.5 Hyperkalemia; N39.0 Urinary tract infection, site not specified; N18.30 Chronic kidney disease, stage 3 unspecified; B96.20 Unspecified Escherichia coli [E. coli] as the cause of diseases classified elsewhere; Z88.0 Allergy status to penicillin; Z79.01 Long term (current) use of anticoagulants; Z79.899 Other long term (current) drug therapy; Z79.891 Long term (current) use of opiate analgesic; Z79.1 Long term (current) use of non-steroidal anti-inflammatories (NSAID); Z86.718 Personal history of other venous thrombosis and embolism; Z51.5 Encounter for palliative care; Z82.49 Family history of ischemic heart disease and other diseases of the circulatory system; Z83.3 Family history of diabetes mellitus; Z79.82 Long term (current) use of aspirin; Z79.84 Long term (current) use of oral hypoglycemic drugs
CPT/HCPCS: 36415; 71045; 76604; 76700; 76705; 80048; 80053; 80307; 81001; 82140; 82570; 83605; 83690; 83735; 83880; 84132; 84300; 84443; 84484; 84702; 85007; 85025; 85027; 85379; 85610; 85730; 86141; 87086; 87088; 87186; 93005; 93970; 99291; G0378; J1335; J2001; J2405

== ENCOUNTER 2023-12-13 16:28 | Inpatient (IN) | payer MEDICAID ==
[~2023-12-13] VITALS: Ht 162.6 cm; Wt 67.0 kg
[~2023-12-13 16:28] MED LIST changes: -APIX5TAB PO; -ASPI81CH59 PO; -CARV3.1240 PO; +DIGO1TAB48 PO; -DOCU-94 PO; +ERGO1CAP23 PO; -HYDR-4798 PO; -HYDR-4902 PO; -HYDR25TA5 PO; -HYDR25TA87 PO; +HYDRX10T PO; -IVAB1.7T PO; +LACT10SO59 PO; -LISI10TA34 PO; +MAGN241.4 PO; -METH-1181 PO; -METO25TA93 PO; -METO5TAB5 PO; +MID10T PO; -ONDA-188 PO; +PANT40T PO; -POTA-228 PO; +POTA-264 PO; -SACU1TAB PO; +SPIR25TA PO; -SPIR25TA8 PO; +WARF4TAB69 PO
[2023-12-13 16:58] VITALS: PULSE 107; RESP 18; O2SAT 90
[2023-12-13] MEDS: DEXTROSE (50%) 50ML SYRG IV ONE (17:00)
[2023-12-13] MEDS: DEXTROSE 50% SYRINGE 50 ML IV ONE (17:15)
[2023-12-13] MEDS: SODIUM CHLORIDE 0.9% 1,000 ML IV ONE (17:39)
[2023-12-13 18:50] LABS: Basophils # (auto) 0.1 10 ^3/uL (0-0.2); Eosinophils # (auto) 0 10 ^3/uL (0-0.8); Eosinophils % (auto) 0.3 % (0.0-7.0); Monocytes # (auto) 0.5 10 ^3/uL (0-1.3)
[2023-12-13 18:52] LABS: Basophils % (auto) 1.1 % (0.0-2.0); Hematocrit 43.8 % (36.0-46.0); Lymphocytes # (auto) 0.7 10 ^3/uL (0.4-5.4); Lymphocytes % (auto) 5.8 % (10.0-50.0); Mean Corpuscular Hemoglobin 29.1 pg (28.0-32.0); Mean Corpuscular Hgb Conc. 29.8 g/dL (32.0-36.0); Mean Corpuscular Volume 97.8 fL (80.0-100.0); Monocytes % (auto) 3.7 % (0.0-12.0); Neutrophils % (auto) 89.1 % (37.0-80.0); Nucleated Red Blood Cells % 0.2 %; Red Blood Cells 4.48 10^6/uL (4.0-5.20); White Blood Cell 12.4 10^3/uL (4.4-10.8)
[2023-12-13 18:58] LABS: Red Cell Distribution Width 20.2 % (11.8-14.3)
[2023-12-13 19:07] LABS: Alanine Aminotransferase 38 U/L (7-40); Albumin 2.8 g/dL (3.2-4.8); Alkaline Phosphatase 230 U/L (46-116); Anion Gap 11 (5-15); Aspartate Aminotransferase 72 U/L (13-40); BUN/Creatinine Ratio 28.3 (10.0-20.0); Blood Urea Nitrogen 34 mg/dL (9-23); Calcium 8.7 mg/dL (8.7-10.4); Carbon Dioxide 25 mmol/L (20-30); Chloride 103 mmol/L (98-107); Glucose 127 mg/dL (74-106); Magnesium 1.9 mg/dL (1.6-2.6); Potassium 4.7 mmol/L (3.5-5.1); Sodium 139 mmol/L (136-145)
[2023-12-13 19:08] LABS: Bilirubin, Total 1.5 mg/dL (0.2-1.0)
[2023-12-13 19:16] LABS: INR 1.29 (0.9-1.15); Partial Thromboplastin Time 23.6 SEC (24.5-34.5); Prothrombin Time 13.3 sec (9.3-11.8)
[2023-12-13 19:30] VITALS: PULSE 103; RESP 22; O2SAT 93
[2023-12-13] MEDS ORDERED: IBUPROFEN 600 MG TAB PO PRN (21:15)
[2023-12-13] MEDS ORDERED: DOCUSATE SOD 100 MG CAP PO PRN (21:15)
[2023-12-13] MEDS ORDERED: hydrALAZINE HCL 20 MG/ML VL IV PRN (21:15)
[2023-12-13] MEDS: SODIUM CHLOR 0.9% PF (SALINE LOCK) 10ML VIAL/SYR IV SCH (22:00)
[2023-12-13] MEDS ORDERED: ALBUTEROL SULF 2.5 MG/0.5ML(0.5%) NEB SOLN NEB PRN (22:00)
[2023-12-13 22:54] VITALS: BP 104/78; PULSE 92; TEMP 98.3; O2SAT 95
[2023-12-13] MEDS: LACTULOSE 20Gm/30ML SOLN PO SCH (23:09)
[2023-12-13] MEDS ORDERED: MORPHINE SULFATE INJ 2 MG/ml SYRG IV PRN (23:15)
[2023-12-13] MEDS ORDERED: NITROGLYCERIN 0.4 MG SL TAB SL PRN (23:15)
[2023-12-13] MEDS: LACTULOSE 10g/15ml SOLN 473ML PR ONE (23:30)
[2023-12-14 02:21] LABS: Urine Bacteria None Seen /hpf (None Seen)
[2023-12-14 02:44] LABS: Urine Hyaline Cast MOD /lpf (0 - 2); Urine Mucus FEW (None Seen); Urine WBC 4 /hpf (0 - 5)
[2023-12-14 02:45] LABS: Amphetamine Screen, Urine Neg (NEGATIVE); Barbiturate Scree,Urine Neg (NEGATIVE); Benzodiazephine Screen, Urine Neg (NEGATIVE); Cannabinoid Screen, Urine Neg (NEGATIVE); Cocaine Screen, Urine Neg (NEGATIVE); Opiate Scree,Urine Pos (NEGATIVE); Phencyclidine Screen, Urine Neg (NEGATIVE)
[2023-12-14 03:14] LABS: Urine Clarity CLEAR (Clear); Urine Color Straw (Yellow); Urine Protein, UAD 1+ (Negative); Urine Specific Gravity 1.025 (1.001-1.035)
[2023-12-14 03:15] LABS: Urine Blood 2+ /uL (Negative); Urine Urobilinogen Normal (Negative)
[2023-12-14 06:10] VITALS: O2SAT 100
[2023-12-14 06:27] LABS: Hematocrit 38.7 % (36.0-46.0); Mean Corpuscular Hemoglobin 28.9 pg (28.0-32.0); Mean Corpuscular Volume 93.2 fL (80.0-100.0); Red Blood Cells 4.15 10^6/uL (4.0-5.20); Red Cell Distribution Width 19.7 % (11.8-14.3); White Blood Cell 9.2 10^3/uL (4.4-10.8)
[2023-12-14 06:45] LABS: Band Neutrophils % (manual) 0; Basophils % (manual) 0 (0.0-2.0); Blast Cells 0; Metamyelocytes % 0; Myelocytes % 0; Promyelocytes % 0; Reactive Lymphocytes 0
[2023-12-14 07:25] VITALS: PULSE 91; RESP 12; O2SAT 92
[2023-12-14 07:35] LABS: Eosinophils % (manual) 1 (0-7); Lymphocytes % (manual) 14 (10.0-50.0); Monocytes % (manual) 8 (0-12)
[2023-12-14 07:37] LABS: Anisocytosis Slight; Hypochromia Slight; Platelet Estimate Decreased; Polychromasia Slight
[2023-12-14] MEDS: ASPirin 81 mg TAB PO SCH (10:00)
[2023-12-14] MEDS: SPIRONOLACTONE 25 MG TAB PO SCH (10:00)
[2023-12-14] MEDS: levoFLOXacin 250MG 50 ML IV SCH (10:30)
[2023-12-14 11:09] LABS: Alanine Aminotransferase 28 U/L (7-40); Albumin 2.4 g/dL (3.2-4.8); Alkaline Phosphatase 198 U/L (46-116); Anion Gap 8 (5-15); Aspartate Aminotransferase 65 U/L (13-40); BUN/Creatinine Ratio 34.3 (10.0-20.0); Blood Urea Nitrogen 34 mg/dL (9-23); Calcium 8.1 mg/dL (8.5-10.1); Carbon Dioxide 30 mmol/L (20-30); Chloride 105 mmol/L (98-107); Glucose 55 mg/dL (74-106); Potassium 4.9 mmol/L (3.5-5.1); Sodium 143 mmol/L (136-145)
[2023-12-14 11:10] LABS: Bilirubin, Total 1.4 mg/dL (0.2-1.0); Total Protein 5.1 g/dL (5.7-8.2)
[2023-12-14] MEDS: DEXTROSE 10% 1,000 ML IV SCH ×2 (12:06→17:47)
[2023-12-14] MEDS: DEXTROSE (50%) 50ML SYRG IV ONE (15:10)
[2023-12-14] MEDS: ACCU-CHEK COMFORT CURVE STRIP VI SCH (16:04)
[2023-12-14] MEDS: DEXTROSE 10% 250 ML IV ONE (17:32)
[2023-12-14 18:40] VITALS: BP 117/83; PULSE 82; RESP 19; TEMP 97.4; O2SAT 90
[2023-12-14 20:00] VITALS: BP 117/83; PULSE 82; RESP 19; TEMP 97.8; O2SAT 92
[2023-12-14 21:39] VITALS: BP 117/83; PULSE 82; RESP 19; TEMP 97.8; O2SAT 92
[2023-12-14 22:11] VITALS: O2SAT 96
[2023-12-15] VITALS (11 sets, daily range): BP systolic 93–103; BP diastolic 65–74; PULSE 88–97; RESP 16–20; TEMP 97.9–98.6; O2SAT 95–100
[2023-12-15 05:13] LABS: Alanine Aminotransferase 25 U/L (7-40); Albumin 2.4 g/dL (3.2-4.8); Alkaline Phosphatase 184 U/L (46-116); Anion Gap 4 (5-15); Aspartate Aminotransferase 59 U/L (13-40); BUN/Creatinine Ratio 24.7 (10.0-20.0); Bilirubin, Total 1.3 mg/dL (0.2-1.0); Calcium 8.4 mg/dL (8.7-10.4); Carbon Dioxide 32 mmol/L (20-30); Chloride 103 mmol/L (98-107); Creatine Kinase IFCC 84 U/L (34-145); Glucose 111 mg/dL (74-106); Potassium 4.1 mmol/L (3.5-5.1); Sodium 139 mmol/L (136-145); Total Protein 5.3 g/dL (5.7-8.2)
[2023-12-15 05:28] LABS: Blood Urea Nitrogen 24 mg/dL (9-23)
[2023-12-15 05:35] LABS: Basophils # (auto) 0.1 10 ^3/uL (0-0.2); Eosinophils # (auto) 0.1 10 ^3/uL (0-0.8); Eosinophils % (auto) 1.1 % (0.0-7.0); Hematocrit 36.9 % (36.0-46.0); Hemoglobin 11.8 g/dL (12.2-16.2); Lymphocytes # (auto) 0.9 10 ^3/uL (0.4-5.4); Lymphocytes % (auto) 12.6 % (10.0-50.0); Mean Corpuscular Hemoglobin 30.2 pg (28.0-32.0); Mean Corpuscular Volume 94.2 fL (80.0-100.0); Monocytes # (auto) 0.3 10 ^3/uL (0-1.3); Monocytes % (auto) 4.7 % (0.0-12.0); Neutrophils # (auto) 5.9 10 ^3/uL (1.6-8.6); Neutrophils % (auto) 79.6 % (37.0-80.0); Nucleated Red Blood Cells % 0.8 %; Red Blood Cells 3.92 10^6/uL (4.0-5.20); Red Cell Distribution Width 19.7 % (11.8-14.3); White Blood Cell 7.5 10^3/uL (4.4-10.8)
[2023-12-15 08:55] LABS: Hepatitis B Core Total AB Negative (Negative)
[2023-12-15 09:38] LABS: Hepatitis A Total Antibody Positive (Negative); Hepatitis B Surface Antibody Negative (Negative); Hepatitis B Surface Antigen Negative (Negative); Hepatitis C Antibody Negative (Negative)
[2023-12-15] MEDS: ACCU-CHEK COMFORT CURVE STRIP VI SCH (11:04)
[2023-12-15] MEDS: HEPARIN SODIUM (PORCINE) 5000 UNITS/ML 1ML VIAL IV ONE ×2 (12:00→23:36)
[2023-12-15] MEDS: HEPARIN DRIP/D5W 100UNITS/ML 250 ML IV SCH ×2 (15:27→23:37)
[2023-12-15] MEDS: LACTULOSE 20Gm/30ML SOLN GT SCH (16:01)
[2023-12-15] MEDS ORDERED: WARFARIN SODIUM 2 MG TAB PO ONE (17:00)
[2023-12-15] MEDS: FUROSEMIDE 20 MG/2 ML VIAL IV ONE (19:45)
[2023-12-15 22:06] LABS: INR 1.26 (0.9-1.15); Partial Thromboplastin Time 27.9 SEC (24.5-34.5)
[2023-12-16] VITALS (10 sets, daily range): BP systolic 88–109; BP diastolic 64–85; PULSE 62–102; RESP 16–18; TEMP 96.8–98.1; O2SAT 94–100
[2023-12-16] MEDS: WARFARIN SODIUM 2 MG TAB GT ONE (00:30)
[2023-12-16 05:55] LABS: Basophils # (auto) 0.1 10 ^3/uL (0-0.2); Basophils % (auto) 1.7 % (0.0-2.0); Eosinophils # (auto) 0.1 10 ^3/uL (0-0.8); Eosinophils % (auto) 1.2 % (0.0-7.0); Hematocrit 39.4 % (36.0-46.0); Hemoglobin 12.5 g/dL (12.2-16.2); Mean Corpuscular Hgb Conc. 31.8 g/dL (32.0-36.0); Mean Corpuscular Volume 94.4 fL (80.0-100.0); Monocytes # (auto) 0.5 10 ^3/uL (0-1.3); Monocytes % (auto) 7.4 % (0.0-12.0); Neutrophils # (auto) 5.1 10 ^3/uL (1.6-8.6); Neutrophils % (auto) 74.7 % (37.0-80.0); Nucleated Red Blood Cells % 0.7 %; Red Blood Cells 4.18 10^6/uL (4.0-5.20); Red Cell Distribution Width 19.6 % (11.8-14.3); White Blood Cell 6.8 10^3/uL (4.4-10.8)
[2023-12-16 05:57] LABS: INR 1.29 (0.9-1.15); Partial Thromboplastin Time 28.2 SEC (24.5-34.5); Prothrombin Time 13.3 sec (9.3-11.8)
[2023-12-16 06:09] LABS: Alanine Aminotransferase 22 U/L (7-40); Albumin 2.4 g/dL (3.2-4.8); Alkaline Phosphatase 185 U/L (46-116); Anion Gap 5 (5-15); Aspartate Aminotransferase 67 U/L (13-40); BUN/Creatinine Ratio 22.1 (10.0-20.0); Bilirubin, Total 1.3 mg/dL (0.2-1.0); Blood Urea Nitrogen 21 mg/dL (9-23); Calcium 8.3 mg/dL (8.5-10.1); Carbon Dioxide 30 mmol/L (20-30); Chloride 104 mmol/L (98-107); Glucose 80 mg/dL (74-106); Potassium 3.8 mmol/L (3.5-5.1); Sodium 139 mmol/L (136-145); Total Protein 4.9 g/dL (5.7-8.2)
[2023-12-16] MEDS: HEPARIN DRIP/D5W 100UNITS/ML 250 ML IV SCH ×2 (07:01→18:02)
[2023-12-16] MEDS: FUROSEMIDE 20 MG/2 ML VIAL IV SCH (10:00)
[2023-12-16 14:31] LABS: INR 1.44 (0.9-1.15); Prothrombin Time 14.8 sec (9.3-11.8)
[2023-12-16 14:34] LABS: Partial Thromboplastin Time > 139.0 SEC (24.5-34.5)
[2023-12-16] MEDS: SODIUM CHLORIDE 0.9% 500 ML IV ONE (15:04)
[2023-12-16] MEDS: WARFARIN SODIUM 2 MG TAB PO ONE (19:12)
[2023-12-16 23:12] LABS: INR 1.43 (0.9-1.15); Prothrombin Time 14.7 sec (9.3-11.8)
[2023-12-16 23:14] LABS: Partial Thromboplastin Time > 139.0 SEC (24.5-34.5)
[2023-12-17] VITALS (8 sets, daily range): BP systolic 92–115; BP diastolic 55–74; PULSE 96–109; RESP 16–20; TEMP 98–98.7; O2SAT 94–100
[2023-12-17 01:27] LABS: INR 1.42 (0.9-1.15); Prothrombin Time 14.6 sec (9.3-11.8)
[2023-12-17 01:29] LABS: Partial Thromboplastin Time > 139.0 SEC (24.5-34.5)
[2023-12-17] MEDS: HEPARIN DRIP/D5W 100UNITS/ML 250 ML IV SCH ×3 (01:45→19:32)
[2023-12-17 07:19] LABS: Alanine Aminotransferase 21 U/L (7-40); Albumin 2.3 g/dL (3.2-4.8); Alkaline Phosphatase 174 U/L (46-116); Anion Gap 7 (5-15); Aspartate Aminotransferase 43 U/L (13-40); BUN/Creatinine Ratio 17.2 (10.0-20.0); Bilirubin, Total 1.3 mg/dL (0.2-1.0); Blood Urea Nitrogen 15 mg/dL (9-23); Calcium 8.2 mg/dL (8.5-10.1); Carbon Dioxide 28 mmol/L (20-30); Chloride 106 mmol/L (98-107); Glucose 70 mg/dL (74-106); Potassium 3.6 mmol/L (3.5-5.1); Sodium 141 mmol/L (136-145); Total Protein 4.7 g/dL (5.7-8.2)
[2023-12-17 08:04] LABS: Free T3 1.88 pg/mL (2.3-4.2); Free T4 (Free Thyroxine) 0.81 ng/dL (0.89-1.76)
[2023-12-17 08:27] LABS: INR 1.42 (0.9-1.15); Prothrombin Time 14.6 sec (9.3-11.8)
[2023-12-17 08:50] LABS: Partial Thromboplastin Time > 139.0 SEC (24.5-34.5)
[2023-12-17] MEDS ORDERED: DOXYCYCLINE 100 MG TAB/CAP PO SCH (10:00)
[2023-12-17] MEDS ORDERED: HEPARIN DRIP/D5W 100UNITS/ML 250 ML IV SCH (10:00)
[2023-12-17] MEDS: cefTRIAXone 1GM/50ML D5W 50 ML IV SCH (11:28)
[2023-12-17] MEDS: DOXYCYCLINE 100MG/250ML 250 ML IV SCH (14:10)
[2023-12-17] MEDS: WARFARIN SODIUM 2 MG TAB GT ONE (17:00)
[2023-12-17 18:35] LABS: INR 1.28 (0.9-1.15); Partial Thromboplastin Time 44.4 SEC (24.5-34.5); Prothrombin Time 13.2 sec (9.3-11.8)
[2023-12-18] VITALS (7 sets, daily range): BP systolic 88–107; BP diastolic 60–80; PULSE 97–110; RESP 16–20; TEMP 96.5–98.1; O2SAT 94–98
[2023-12-18 02:04] LABS: INR 1.36 (0.9-1.15)
[2023-12-18 02:23] LABS: Partial Thromboplastin Time > 139.0 SEC (24.5-34.5)
[2023-12-18] MEDS: HEPARIN DRIP/D5W 100UNITS/ML 250 ML IV SCH ×2 (03:40→11:45)
[2023-12-18 06:21] LABS: Basophils # (auto) 0.1 10 ^3/uL (0-0.2); Basophils % (auto) 1.3 % (0.0-2.0); Eosinophils # (auto) 0.1 10 ^3/uL (0-0.8); Eosinophils % (auto) 1.2 % (0.0-7.0); Hematocrit 41.1 % (36.0-46.0); Hemoglobin 12.8 g/dL (12.2-16.2); Lymphocytes # (auto) 1.4 10 ^3/uL (0.4-5.4); Lymphocytes % (auto) 19.5 % (10.0-50.0); Mean Corpuscular Hemoglobin 29.6 pg (28.0-32.0); Mean Corpuscular Hgb Conc. 31.2 g/dL (32.0-36.0); Mean Corpuscular Volume 94.9 fL (80.0-100.0); Monocytes # (auto) 0.6 10 ^3/uL (0-1.3); Monocytes % (auto) 8.1 % (0.0-12.0); Neutrophils # (auto) 5.1 10 ^3/uL (1.6-8.6); Neutrophils % (auto) 69.9 % (37.0-80.0); Nucleated Red Blood Cells % 0.5 %; Red Blood Cells 4.33 10^6/uL (4.0-5.20); Red Cell Distribution Width 19.6 % (11.8-14.3); White Blood Cell 7.3 10^3/uL (4.4-10.8)
[2023-12-18 11:04] LABS: INR 1.37 (0.9-1.15); Partial Thromboplastin Time 40.4 SEC (24.5-34.5); Prothrombin Time 14.1 sec (9.3-11.8)
[2023-12-18 11:08] LABS: Alanine Aminotransferase 26 U/L (7-40); Albumin 2.6 g/dL (3.2-4.8); Alkaline Phosphatase 172 U/L (46-116); Anion Gap 12 (5-15); Aspartate Aminotransferase 68 U/L (13-40); BUN/Creatinine Ratio 13.7 (10.0-20.0); Bilirubin, Total 1.1 mg/dL (0.2-1.0); Blood Urea Nitrogen 14 mg/dL (9-23); Calcium 8.6 mg/dL (8.5-10.1); Carbon Dioxide 24 mmol/L (20-30); Chloride 104 mmol/L (98-107); Glucose 84 mg/dL (74-106); Potassium 3.9 mmol/L (3.5-5.1); Sodium 140 mmol/L (136-145); Total Protein 5.6 g/dL (5.7-8.2)
[2023-12-18 11:53] LABS: Magnesium 2.4 mg/dL (1.6-2.6)
[2023-12-18] MEDS: WARFARIN SODIUM 1 MG TAB GT ONE (17:00)
[2023-12-18 19:20] LABS: INR 1.36 (0.9-1.15); Partial Thromboplastin Time 60.7 SEC (24.5-34.5)
[2023-12-18] MEDS: ATORVASTATIN 20 MG TAB PO SCH (22:28)
[2023-12-18] MEDS: DOXYCYCLINE 100 MG TAB/CAP NG SCH (22:28)
[2023-12-19] VITALS (8 sets, daily range): BP systolic 94–113; BP diastolic 60–87; PULSE 96–114; RESP 17–20; TEMP 97.5–98.5; O2SAT 94–95
[2023-12-19 00:40] LABS: Basophils # (auto) 0.1 10 ^3/uL (0-0.2); Basophils % (auto) 1.5 % (0.0-2.0); Eosinophils # (auto) 0.1 10 ^3/uL (0-0.8); Eosinophils % (auto) 1.6 % (0.0-7.0); Hemoglobin 12.1 g/dL (12.2-16.2); Lymphocytes # (auto) 1.3 10 ^3/uL (0.4-5.4); Mean Corpuscular Hemoglobin 29.5 pg (28.0-32.0); Mean Corpuscular Volume 95.3 fL (80.0-100.0); Monocytes # (auto) 0.6 10 ^3/uL (0-1.3); Monocytes % (auto) 7.6 % (0.0-12.0); Neutrophils # (auto) 5.2 10 ^3/uL (1.6-8.6); Neutrophils % (auto) 71.3 % (37.0-80.0); Nucleated Red Blood Cells % 0.2 %; Red Blood Cells 4.09 10^6/uL (4.0-5.20); White Blood Cell 7.3 10^3/uL (4.4-10.8)
[2023-12-19 00:55] LABS: Red Cell Distribution Width 20.1 % (11.8-14.3)
[2023-12-19 01:18] LABS: INR 1.49 (0.9-1.15); Prothrombin Time 15.2 sec (9.3-11.8)
[2023-12-19 01:20] LABS: Partial Thromboplastin Time 97.9 SEC (24.5-34.5)
[2023-12-19] MEDS: HEPARIN DRIP/D5W 100UNITS/ML 250 ML IV SCH ×3 (02:30→19:58)
[2023-12-19] MEDS: LACTULOSE 20Gm/30ML SOLN GT SCH (09:35)
[2023-12-19] MEDS: rifAXIMin 550 MG TAB PO SCH (09:37)
[2023-12-19 10:42] LABS: Alanine Aminotransferase 21 U/L (7-40); Albumin 2.5 g/dL (3.2-4.8); Alkaline Phosphatase 165 U/L (46-116); Anion Gap 9 (5-15); Aspartate Aminotransferase 57 U/L (13-40); BUN/Creatinine Ratio 13.2 (10.0-20.0); Blood Urea Nitrogen 14 mg/dL (9-23); Calcium 8.8 mg/dL (8.7-10.4); Carbon Dioxide 25 mmol/L (20-30); Chloride 107 mmol/L (98-107); Glucose 78 mg/dL (74-106); Magnesium 2.1 mg/dL (1.6-2.6); Potassium 3.5 mmol/L (3.5-5.1); Sodium 141 mmol/L (136-145)
[2023-12-19 10:43] LABS: Bilirubin, Total 1.1 mg/dL (0.2-1.0); INR 1.56 (0.9-1.15); Partial Thromboplastin Time 37.3 SEC (24.5-34.5); Prothrombin Time 15.9 sec (9.3-11.8); Total Protein 5.5 g/dL (5.7-8.2)
[2023-12-19] MEDS: WARFARIN SODIUM 1 MG TAB GT ONE (16:48)
[2023-12-19] MEDS: Ensure HIGH Protein Chocolate 8oz Bottle NG SCH (18:00)
[2023-12-19 19:26] LABS: INR 1.55 (0.9-1.15); Partial Thromboplastin Time 43.6 SEC (24.5-34.5); Prothrombin Time 15.8 sec (9.3-11.8)
[2023-12-20] VITALS (7 sets, daily range): BP systolic 95–115; BP diastolic 59–77; PULSE 96–107; RESP 14–19; TEMP 97.4–98.2; O2SAT 93–99
[2023-12-20 03:02] LABS: Eosinophils # (auto) 0.1 10 ^3/uL (0-0.8); Hemoglobin 12.6 g/dL (12.2-16.2); Lymphocytes # (auto) 1.2 10 ^3/uL (0.4-5.4); Mean Corpuscular Hemoglobin 29.7 pg (28.0-32.0); Monocytes # (auto) 0.6 10 ^3/uL (0-1.3); Neutrophils # (auto) 4.9 10 ^3/uL (1.6-8.6); Nucleated Red Blood Cells % 0.1 %; Red Blood Cells 4.24 10^6/uL (4.0-5.20); White Blood Cell 6.9 10^3/uL (4.4-10.8)
[2023-12-20 03:03] LABS: Basophils # (auto) 0.2 10 ^3/uL (0-0.2); Basophils % (auto) 2.3 % (0.0-2.0); Eosinophils % (auto) 1.2 % (0.0-7.0); Hematocrit 41.1 % (36.0-46.0); Lymphocytes % (auto) 16.8 % (10.0-50.0); Mean Corpuscular Hgb Conc. 30.7 g/dL (32.0-36.0); Mean Corpuscular Volume 96.8 fL (80.0-100.0); Monocytes % (auto) 8.8 % (0.0-12.0); Neutrophils % (auto) 70.9 % (37.0-80.0)
[2023-12-20 03:04] LABS: Red Cell Distribution Width 20.7 % (11.8-14.3)
[2023-12-20 03:06] LABS: INR 1.83 (0.9-1.15); Prothrombin Time 18.5 sec (9.3-11.8)
[2023-12-20 03:15] LABS: Partial Thromboplastin Time 80.8 SEC (24.5-34.5)
[2023-12-20] MEDS: HEPARIN DRIP/D5W 100UNITS/ML 250 ML IV SCH (03:26)
[2023-12-20 07:21] LABS: Alanine Aminotransferase 28 U/L (7-40); Alkaline Phosphatase 185 U/L (46-116); Anion Gap 12 (5-15); BUN/Creatinine Ratio 14.4 (10.0-20.0); Blood Urea Nitrogen 17 mg/dL (9-23); Carbon Dioxide 25 mmol/L (20-30); Chloride 106 mmol/L (98-107); Glucose 81 mg/dL (74-106); Potassium 3.7 mmol/L (3.5-5.1); Sodium 143 mmol/L (136-145)
[2023-12-20 07:22] LABS: Aspartate Aminotransferase 69 U/L (13-40); Bilirubin, Total 1.1 mg/dL (0.2-1.0)
[2023-12-20] MEDS: DEXTROSE 10% 1,000 ML IV ONE (07:47)
[2023-12-20] MEDS: DEXTROSE 50% SYRINGE 50 ML IV ONE (07:47)
[2023-12-20] MEDS: InsuLIN REG 1unit/0.01ml Soln (100units/ml) ONE (07:48)
[2023-12-20 09:22] LABS: Magnesium 2.1 mg/dL (1.6-2.6)
[2023-12-20] MEDS: FUROSEMIDE 40 MG TAB ONE ×2 (09:34→09:52)
[2023-12-20] MEDS: FUROSEMIDE 40 MG TAB PO SCH (09:53)
[2023-12-20 12:19] LABS: INR 1.97 (0.9-1.15); Partial Thromboplastin Time 51.7 SEC (24.5-34.5); Prothrombin Time 19.8 sec (9.3-11.8)
[2023-12-20] MEDS: AMIODARONE HCL 200 MG TAB PO ONE (16:17)
[2023-12-20] MEDS: MAGNESIUM SULFATE 1GM/100ML 100 ML IV ONE (16:17)
[2023-12-20] MEDS: POTASSIUM EFFERVESENT TAB 25 MEQ GT ONE (16:17)
[2023-12-20 16:45] LABS: INR 2.07 (0.9-1.15); Partial Thromboplastin Time 54.2 SEC (24.5-34.5); Prothrombin Time 20.7 sec (9.3-11.8)
[2023-12-20] MEDS ORDERED: WARFARIN SODIUM 1 MG TAB PO ONE (17:00)
[2023-12-20] MEDS: MAGNESIUM OXIDE 400 MG TAB PO SCH (22:41)
[2023-12-20] MEDS: AMIODARONE HCL 200 MG TAB PO SCH (22:42)
[2023-12-21] VITALS (8 sets, daily range): BP systolic 86–111; BP diastolic 64–83; PULSE 94–110; RESP 12–19; TEMP 96.8–97.8; O2SAT 9–100
[2023-12-21 00:34] LABS: INR 1.85 (0.9-1.15); Partial Thromboplastin Time 51.9 SEC (24.5-34.5); Prothrombin Time 18.7 sec (9.3-11.8)
[2023-12-21 06:44] LABS: Basophils # (auto) 0.1 10 ^3/uL (0-0.2); Eosinophils # (auto) 0.1 10 ^3/uL (0-0.8); Hematocrit 38.8 % (36.0-46.0); Hemoglobin 11.6 g/dL (12.2-16.2); Lymphocytes # (auto) 1.3 10 ^3/uL (0.4-5.4); Mean Corpuscular Hemoglobin 29.5 pg (28.0-32.0); Nucleated Red Blood Cells % 0.2 %; White Blood Cell 7.2 10^3/uL (4.4-10.8)
[2023-12-21 06:46] LABS: Basophils % (auto) 1.8 % (0.0-2.0); Lymphocytes % (auto) 17.7 % (10.0-50.0); Mean Corpuscular Hgb Conc. 29.8 g/dL (32.0-36.0); Mean Corpuscular Volume 98.9 fL (80.0-100.0); Monocytes # (auto) 0.3 10 ^3/uL (0-1.3); Monocytes % (auto) 4.7 % (0.0-12.0); Neutrophils # (auto) 5.3 10 ^3/uL (1.6-8.6); Neutrophils % (auto) 73.8 % (37.0-80.0); Red Blood Cells 3.92 10^6/uL (4.0-5.20)
[2023-12-21 06:57] LABS: Alanine Aminotransferase 22 U/L (7-40); Albumin 2.4 g/dL (3.2-4.8); Alkaline Phosphatase 157 U/L (46-116); Anion Gap 10 (5-15); Aspartate Aminotransferase 51 U/L (13-40); BUN/Creatinine Ratio 19.4 (10.0-20.0); Bilirubin, Total 0.9 mg/dL (0.2-1.0); Blood Urea Nitrogen 20 mg/dL (9-23); Calcium 8.7 mg/dL (8.7-10.4); Carbon Dioxide 25 mmol/L (20-30); Chloride 107 mmol/L (98-107); Glucose 86 mg/dL (74-106); Magnesium 2.1 mg/dL (1.6-2.6); Sodium 142 mmol/L (136-145); Total Protein 5.3 g/dL (5.7-8.2)
[2023-12-21 07:06] LABS: Red Cell Distribution Width 20.2 % (11.8-14.3)
[2023-12-21 08:23] LABS: Platelet Estimate Adequate
[2023-12-21 08:24] LABS: Anisocytosis Slight
[2023-12-21] MEDS ORDERED: MAGNESIUM SULFATE 1GM/100ML 100 ML IV ONE (09:00)
[2023-12-21] MEDS ORDERED: WARFARIN SODIUM 2 MG TAB PO ONE (17:00)
[2023-12-21] MEDS: FUROSEMIDE 20 MG/2 ML VIAL IV ONE (17:18)
[2023-12-21] MEDS: WARFARIN SODIUM 2 MG TAB PO ONE (17:25)
[2023-12-21] MEDS ORDERED: HALOPERIDOL LACTATE 5 MG/ML INJ VIAL IM PRN (23:30)
[2023-12-22] VITALS (10 sets, daily range): BP systolic 105–118; BP diastolic 7–89; PULSE 51–109; RESP 16–20; TEMP 36.5; O2SAT 90–93
[2023-12-22 00:56] LABS: INR 1.75 (0.9-1.15); Partial Thromboplastin Time 38.7 SEC (24.5-34.5); Prothrombin Time 17.7 sec (9.3-11.8)
[2023-12-22] MEDS: HEPARIN DRIP/D5W 100UNITS/ML 250 ML IV SCH (02:30)
[2023-12-22 06:15] LABS: Basophils # (auto) 0.1 10 ^3/uL (0-0.2); Basophils % (auto) 0.9 % (0.0-2.0); Eosinophils # (auto) 0.1 10 ^3/uL (0-0.8); Eosinophils % (auto) 1.1 % (0.0-7.0); Hematocrit 36.5 % (36.0-46.0); Hemoglobin 11.4 g/dL (12.2-16.2); Lymphocytes # (auto) 1.3 10 ^3/uL (0.4-5.4); Mean Corpuscular Hemoglobin 29.9 pg (28.0-32.0); Mean Corpuscular Hgb Conc. 31.3 g/dL (32.0-36.0); Mean Corpuscular Volume 95.7 fL (80.0-100.0); Monocytes # (auto) 0.3 10 ^3/uL (0-1.3); Monocytes % (auto) 4.3 % (0.0-12.0); Neutrophils # (auto) 5.4 10 ^3/uL (1.6-8.6); Neutrophils % (auto) 75.7 % (37.0-80.0); Nucleated Red Blood Cells % 0.3 %; Red Blood Cells 3.82 10^6/uL (4.0-5.20); Red Cell Distribution Width 19.4 % (11.8-14.3); White Blood Cell 7.1 10^3/uL (4.4-10.8)
[2023-12-22 06:25] LABS: INR 1.64 (0.9-1.15); Partial Thromboplastin Time 33.6 SEC (24.5-34.5); Prothrombin Time 16.7 sec (9.3-11.8)
[2023-12-22] MEDS ORDERED: LOPERAMIDE HCL 2 MG CAP/TAB PO PRN (08:00)
[2023-12-22 14:53] LABS: Alanine Aminotransferase 25 U/L (7-40); Alkaline Phosphatase 152 U/L (46-116); Anion Gap 10 (5-15); Calcium 8.9 mg/dL (8.5-10.1); Carbon Dioxide 27 mmol/L (20-30); Chloride 105 mmol/L (98-107); Glucose 94 mg/dL (74-106); Potassium 4.8 mmol/L (3.5-5.1); Sodium 142 mmol/L (136-145)
[2023-12-22 14:54] LABS: Albumin 2.9 g/dL (3.2-4.8); Aspartate Aminotransferase 61 U/L (13-40); BUN/Creatinine Ratio 16.9 (10.0-20.0); Blood Urea Nitrogen 20 mg/dL (9-23)
[2023-12-22 14:55] LABS: Bilirubin, Total 0.9 mg/dL (0.2-1.0); Phosphorus 3.9 mg/dL (2.4-5.1); Total Protein 5.9 g/dL (5.7-8.2)
[2023-12-22 14:56] LABS: INR 1.66 (0.9-1.15); Prothrombin Time 16.9 sec (9.3-11.8)
[2023-12-22 14:57] LABS: Partial Thromboplastin Time 67.2 SEC (24.5-34.5)
[2023-12-22 15:22] LABS: Magnesium 2.2 mg/dL (1.6-2.6)
[2023-12-22] MEDS: LORazepam 2MG/ML-1ML VIAL IM ONE ×2 (15:56→21:17)
[2023-12-22] MEDS: WARFARIN SODIUM 2 MG TAB PO ONE (18:18)
[2023-12-23] VITALS (7 sets, daily range): BP systolic 100–107; BP diastolic 38–75; PULSE 51–107; RESP 16–20; TEMP 97.2–98.2; O2SAT 90–99
[2023-12-23 02:39] LABS: INR 1.7 (0.9-1.15); Partial Thromboplastin Time 30.5 SEC (24.5-34.5); Prothrombin Time 17.2 sec (9.3-11.8)
[2023-12-23] MEDS ORDERED: HEPARIN DRIP/D5W 100UNITS/ML 250 ML IV SCH ×2 (03:00)
[2023-12-23] MEDS ORDERED: HEPARIN SODIUM (PORCINE) 5000 UNITS/ML 1ML VIAL IV ONE (03:15)
[2023-12-23] MEDS: HEPARIN SODIUM (PORCINE) 5000 UNITS/ML 1ML VIAL IV ONE (03:43)
[2023-12-23] MEDS: HEPARIN DRIP/D5W 100UNITS/ML 250 ML IV SCH ×2 (03:46→17:41)
[2023-12-23 15:27] LABS: Basophils # (auto) 0.1 10 ^3/uL (0-0.2); Basophils % (auto) 1.3 % (0.0-2.0); Eosinophils # (auto) 0.1 10 ^3/uL (0-0.8); Eosinophils % (auto) 1.9 % (0.0-7.0); Hematocrit 35.8 % (36.0-46.0); Hemoglobin 11.1 g/dL (12.2-16.2); Lymphocytes # (auto) 1.4 10 ^3/uL (0.4-5.4); Lymphocytes % (auto) 20.2 % (10.0-50.0); Mean Corpuscular Hemoglobin 29.7 pg (28.0-32.0); Mean Corpuscular Hgb Conc. 31.1 g/dL (32.0-36.0); Mean Corpuscular Volume 95.8 fL (80.0-100.0); Monocytes # (auto) 0.4 10 ^3/uL (0-1.3); Monocytes % (auto) 5.3 % (0.0-12.0); Neutrophils % (auto) 71.3 % (37.0-80.0); Nucleated Red Blood Cells % 0.1 %; Red Blood Cells 3.74 10^6/uL (4.0-5.20); Red Cell Distribution Width 19.5 % (11.8-14.3)
[2023-12-23 15:52] LABS: Alanine Aminotransferase 21 U/L (7-40); Albumin 2.6 g/dL (3.2-4.8); Alkaline Phosphatase 149 U/L (46-116); Anion Gap 6 (5-15); Aspartate Aminotransferase 52 U/L (13-40); Bilirubin, Total 0.9 mg/dL (0.2-1.0); Blood Urea Nitrogen 19 mg/dL (9-23); Carbon Dioxide 28 mmol/L (20-30); Chloride 106 mmol/L (98-107); Glucose 67 mg/dL (74-106); Magnesium 2.2 mg/dL (1.6-2.6); Potassium 4.5 mmol/L (3.5-5.1); Sodium 140 mmol/L (136-145)
[2023-12-23 16:14] LABS: INR 1.97 (0.9-1.15); Prothrombin Time 19.8 sec (9.3-11.8)
[2023-12-23 16:19] LABS: Partial Thromboplastin Time > 139.0 SEC (24.5-34.5)
[2023-12-23] MEDS: WARFARIN SODIUM 2 MG TAB GT ONE (17:41)
[2023-12-23] MEDS: LORazepam 2MG/ML-1ML VIAL IV PRN (18:59)
[2023-12-23] MEDS: WARFARIN SODIUM 2 MG TAB PO ONE (20:30)
[2023-12-23 23:58] LABS: INR 1.88 (0.9-1.15); Partial Thromboplastin Time 57.3 SEC (24.5-34.5); Prothrombin Time 18.9 sec (9.3-11.8)
[2023-12-24] VITALS (7 sets, daily range): BP systolic 103–133; BP diastolic 50–84; PULSE 66–102; RESP 16–20; TEMP 96.5–98.7; O2SAT 93–100
[2023-12-24 07:16] LABS: Alanine Aminotransferase 20 U/L (7-40); Albumin 2.5 g/dL (3.2-4.8); Alkaline Phosphatase 140 U/L (46-116); Anion Gap 8 (5-15); Aspartate Aminotransferase 45 U/L (13-40); BUN/Creatinine Ratio 18.5 (10.0-20.0); Blood Urea Nitrogen 23 mg/dL (9-23); Calcium 9.1 mg/dL (8.7-10.4); Carbon Dioxide 28 mmol/L (20-30); Chloride 105 mmol/L (98-107); Glucose 58 mg/dL (74-106); Magnesium 2.1 mg/dL (1.6-2.6); Potassium 4.1 mmol/L (3.5-5.1); Sodium 141 mmol/L (136-145)
[2023-12-24 07:17] LABS: Bilirubin, Total 0.9 mg/dL (0.2-1.0); Total Protein 5.7 g/dL (5.7-8.2)
[2023-12-24 07:20] LABS: Basophils # (auto) 0.2 10 ^3/uL (0-0.2); Basophils % (auto) 2.9 % (0.0-2.0); Eosinophils # (auto) 0.1 10 ^3/uL (0-0.8); Eosinophils % (auto) 1.7 % (0.0-7.0); Hematocrit 36.9 % (36.0-46.0); Hemoglobin 11.4 g/dL (12.2-16.2); Lymphocytes # (auto) 1.2 10 ^3/uL (0.4-5.4); Lymphocytes % (auto) 20.3 % (10.0-50.0); Mean Corpuscular Hemoglobin 29.3 pg (28.0-32.0); Mean Corpuscular Hgb Conc. 30.9 g/dL (32.0-36.0); Mean Corpuscular Volume 94.9 fL (80.0-100.0); Monocytes # (auto) 0.4 10 ^3/uL (0-1.3); Monocytes % (auto) 7.5 % (0.0-12.0); Neutrophils # (auto) 3.9 10 ^3/uL (1.6-8.6); Neutrophils % (auto) 67.6 % (37.0-80.0); Nucleated Red Blood Cells % 0.3 %; Red Blood Cells 3.89 10^6/uL (4.0-5.20); Red Cell Distribution Width 19.6 % (11.8-14.3); White Blood Cell 5.8 10^3/uL (4.4-10.8)
[2023-12-24 07:25] LABS: INR 1.69 (0.9-1.15); Prothrombin Time 17.1 sec (9.3-11.8)
[2023-12-24 07:35] LABS: Partial Thromboplastin Time 102.9 SEC (24.5-34.5)
[2023-12-24] MEDS: HEPARIN DRIP/D5W 100UNITS/ML 250 ML IV SCH ×2 (09:35→20:16)
[2023-12-24] MEDS: FUROSEMIDE 20 MG/2 ML VIAL IV ONE (14:15)
[2023-12-24 15:04] LABS: INR 1.86 (0.9-1.15); Partial Thromboplastin Time 31.7 SEC (24.5-34.5); Prothrombin Time 18.8 sec (9.3-11.8)
[2023-12-24] MEDS: LORazepam 2MG/ML-1ML VIAL IV PRN (18:15)
[2023-12-24] MEDS: WARFARIN SODIUM 5 MG TAB PO ONE ×2 (18:48→21:23)
[2023-12-24 19:13] LABS: INR 1.75 (0.9-1.15); Partial Thromboplastin Time 31.9 SEC (24.5-34.5); Prothrombin Time 17.7 sec (9.3-11.8)
[2023-12-24] MEDS: HEPARIN SODIUM (PORCINE) 5000 UNITS/ML 1ML VIAL IV ONE (20:10)
[2023-12-24] MEDS ORDERED: WARFARIN SODIUM 2 MG TAB GT ONE (21:21)
[2023-12-25] VITALS (8 sets, daily range): BP systolic 101–137; BP diastolic 51–76; PULSE 65–96; RESP 18–20; TEMP 96.5–98; O2SAT 92–96
[2023-12-25 02:25] LABS: INR 1.84 (0.9-1.15); Partial Thromboplastin Time 62.4 SEC (24.5-34.5); Prothrombin Time 18.6 sec (9.3-11.8)
[2023-12-25 06:51] LABS: Alanine Aminotransferase 23 U/L (7-40); Albumin 2.7 g/dL (3.2-4.8); Alkaline Phosphatase 137 U/L (46-116); Anion Gap 8 (5-15); Aspartate Aminotransferase 51 U/L (13-40); BUN/Creatinine Ratio 16.9 (10.0-20.0); Blood Urea Nitrogen 21 mg/dL (9-23); Calcium 9.2 mg/dL (8.7-10.4); Carbon Dioxide 25 mmol/L (20-30); Chloride 106 mmol/L (98-107); Glucose 65 mg/dL (74-106); Magnesium 2.3 mg/dL (1.6-2.6); Potassium 4.6 mmol/L (3.5-5.1); Sodium 139 mmol/L (136-145)
[2023-12-25 06:52] LABS: Bilirubin, Total 0.8 mg/dL (0.2-1.0)
[2023-12-25 06:53] LABS: Eosinophils # (auto) 0.1 10 ^3/uL (0-0.8); Hemoglobin 10.6 g/dL (12.2-16.2); Monocytes # (auto) 0.5 10 ^3/uL (0-1.3); Neutrophils # (auto) 4.7 10 ^3/uL (1.6-8.6); White Blood Cell 6.6 10^3/uL (4.4-10.8)
[2023-12-25 06:55] LABS: Basophils # (auto) 0.2 10 ^3/uL (0-0.2); Basophils % (auto) 2.4 % (0.0-2.0); Eosinophils % (auto) 1.3 % (0.0-7.0); Hematocrit 34.6 % (36.0-46.0); Lymphocytes # (auto) 1.2 10 ^3/uL (0.4-5.4); Lymphocytes % (auto) 17.5 % (10.0-50.0); Mean Corpuscular Hemoglobin 29.8 pg (28.0-32.0); Mean Corpuscular Hgb Conc. 30.8 g/dL (32.0-36.0); Mean Corpuscular Volume 96.8 fL (80.0-100.0); Monocytes % (auto) 7.9 % (0.0-12.0); Neutrophils % (auto) 70.9 % (37.0-80.0); Nucleated Red Blood Cells % 0.5 %; Red Blood Cells 3.57 10^6/uL (4.0-5.20); Red Cell Distribution Width 19.6 % (11.8-14.3)
[2023-12-25] MEDS: ACCU-CHEK COMFORT CURVE STRIP VI SCH (08:00)
[2023-12-25 08:57] LABS: INR 1.66 (0.9-1.15); Partial Thromboplastin Time 47.9 SEC (24.5-34.5); Prothrombin Time 16.9 sec (9.3-11.8)
[2023-12-25] MEDS ORDERED: WARFARIN SODIUM 5 MG TAB PO ONE ×2 (09:00→17:00)
[2023-12-25] MEDS: HEPARIN DRIP/D5W 100UNITS/ML 250 ML IV SCH ×2 (09:45→16:01)
[2023-12-25] MEDS: FUROSEMIDE 20 MG/2 ML VIAL IV SCH (11:50)
[2023-12-25 15:55] LABS: INR 1.58 (0.9-1.15); Prothrombin Time 16.1 sec (9.3-11.8)
[2023-12-25 23:16] LABS: INR 1.48 (0.9-1.15); Prothrombin Time 15.1 sec (9.3-11.8)
[2023-12-25 23:20] LABS: Partial Thromboplastin Time 75.7 SEC (24.5-34.5)
[2023-12-26] VITALS (13 sets, daily range): BP systolic 90–126; BP diastolic 62–79; PULSE 70–96; RESP 15–20; TEMP 96.6–98.7; O2SAT 94–99
[2023-12-26] MEDS: HEPARIN DRIP/D5W 100UNITS/ML 250 ML IV SCH ×2 (00:15→15:15)
[2023-12-26 06:37] LABS: Basophils # (auto) 0.1 10 ^3/uL (0-0.2); Eosinophils # (auto) 0.2 10 ^3/uL (0-0.8); Nucleated Red Blood Cells % 0.2 %
[2023-12-26 06:39] LABS: Eosinophils % (auto) 3.2 % (0.0-7.0); Hematocrit 37.2 % (36.0-46.0); Hemoglobin 11.5 g/dL (12.2-16.2); Mean Corpuscular Hgb Conc. 30.9 g/dL (32.0-36.0); Mean Corpuscular Volume 97.1 fL (80.0-100.0); Monocytes # (auto) 0.4 10 ^3/uL (0-1.3); Monocytes % (auto) 6.5 % (0.0-12.0); Neutrophils # (auto) 4.7 10 ^3/uL (1.6-8.6); Neutrophils % (auto) 72.3 % (37.0-80.0); Red Blood Cells 3.83 10^6/uL (4.0-5.20); Red Cell Distribution Width 19.6 % (11.8-14.3); White Blood Cell 6.5 10^3/uL (4.4-10.8)
[2023-12-26 06:50] LABS: INR 1.42 (0.9-1.15); Partial Thromboplastin Time 51.9 SEC (24.5-34.5); Prothrombin Time 14.6 sec (9.3-11.8)
[2023-12-26 06:57] LABS: Alanine Aminotransferase 19 U/L (7-40); Albumin 2.6 g/dL (3.2-4.8); Alkaline Phosphatase 129 U/L (46-116); Anion Gap 6 (5-15); Aspartate Aminotransferase 37 U/L (13-40); BUN/Creatinine Ratio 18.4 (10.0-20.0); Blood Urea Nitrogen 21 mg/dL (9-23); Calcium 8.9 mg/dL (8.7-10.4); Carbon Dioxide 28 mmol/L (20-30); Chloride 105 mmol/L (98-107); Glucose 71 mg/dL (74-106); Phosphorus 4.2 mg/dL (2.4-5.1); Potassium 3.9 mmol/L (3.5-5.1); Sodium 139 mmol/L (136-145)
[2023-12-26 06:58] LABS: Bilirubin, Total 0.8 mg/dL (0.2-1.0); Total Protein 5.7 g/dL (5.7-8.2)
[2023-12-26] MEDS: LORazepam 2MG/ML-1ML VIAL ONE (14:04)
[2023-12-26] MEDS: fentaNYL CITRATE 100 MCG/2 ML VL ONE (14:12)
[2023-12-26] MEDS: HEPARIN 1,000 UNITS/ml 1ML VIAL ONE ×2 (14:15→14:53)
[2023-12-26] MEDS: LIDOCAINE 2%HCL (LOCAL ANESTH.) INJ 20ML MDV ONE (14:15)
[2023-12-26 14:26] LABS: INR 1.37 (0.9-1.15); Partial Thromboplastin Time 38.2 SEC (24.5-34.5); Prothrombin Time 14.1 sec (9.3-11.8)
[2023-12-26 21:34] LABS: INR 1.36 (0.9-1.15); Partial Thromboplastin Time 55.3 SEC (24.5-34.5)
[2023-12-27] VITALS (7 sets, daily range): BP systolic 90–128; BP diastolic 61–74; PULSE 70–104; RESP 16–22; TEMP 96.1–98.3; O2SAT 92–100
[2023-12-27 04:14] LABS: Basophils # (auto) 0.1 10 ^3/uL (0-0.2); Basophils % (auto) 1.7 % (0.0-2.0); Eosinophils # (auto) 0.1 10 ^3/uL (0-0.8); Eosinophils % (auto) 1.5 % (0.0-7.0); Hematocrit 34.9 % (36.0-46.0); Hemoglobin 10.9 g/dL (12.2-16.2); Lymphocytes % (auto) 14.3 % (10.0-50.0); Mean Corpuscular Hemoglobin 29.7 pg (28.0-32.0); Mean Corpuscular Hgb Conc. 31.2 g/dL (32.0-36.0); Mean Corpuscular Volume 95.2 fL (80.0-100.0); Monocytes # (auto) 0.5 10 ^3/uL (0-1.3); Monocytes % (auto) 7.3 % (0.0-12.0); Neutrophils # (auto) 5.1 10 ^3/uL (1.6-8.6); Neutrophils % (auto) 75.2 % (37.0-80.0); Nucleated Red Blood Cells % 0.3 %; Red Blood Cells 3.67 10^6/uL (4.0-5.20); Red Cell Distribution Width 19.5 % (11.8-14.3); White Blood Cell 6.8 10^3/uL (4.4-10.8)
[2023-12-27 04:44] LABS: Alanine Aminotransferase 19 U/L (7-40); Albumin 2.7 g/dL (3.2-4.8); Alkaline Phosphatase 125 U/L (46-116); Anion Gap 6 (5-15); Aspartate Aminotransferase 36 U/L (13-40); BUN/Creatinine Ratio 21.1 (10.0-20.0); Bilirubin, Total 0.9 mg/dL (0.2-1.0); Blood Urea Nitrogen 23 mg/dL (9-23); Calcium 8.8 mg/dL (8.7-10.4); Carbon Dioxide 29 mmol/L (20-30); Chloride 103 mmol/L (98-107); Glucose 81 mg/dL (74-106); INR 1.36 (0.9-1.15); Magnesium 2.1 mg/dL (1.6-2.6); Phosphorus 4.4 mg/dL (2.4-5.1); Potassium 3.9 mmol/L (3.5-5.1); Sodium 138 mmol/L (136-145); Total Protein 5.7 g/dL (5.7-8.2)
[2023-12-27 04:53] LABS: Partial Thromboplastin Time > 139.0 SEC (24.5-34.5)
[2023-12-27] MEDS: HEPARIN DRIP/D5W 100UNITS/ML 250 ML IV SCH (05:20)
[2023-12-27 13:20] LABS: INR 1.62 (0.9-1.15); Prothrombin Time 16.5 sec (9.3-11.8)
[2023-12-27 13:22] LABS: Partial Thromboplastin Time 71.7 SEC (24.5-34.5)
[2023-12-27] MEDS: WARFARIN SODIUM 5 MG TAB PO ONE (18:23)
[2023-12-27 19:23] LABS: INR 1.29 (0.9-1.15); Partial Thromboplastin Time 55.8 SEC (24.5-34.5); Prothrombin Time 13.3 sec (9.3-11.8)
[2023-12-27] MEDS: ONDANSETRON HCL 4 MG/2 ML VIAL IV PRN (23:48)
[2023-12-28] VITALS (8 sets, daily range): BP systolic 101–140; BP diastolic 62–71; PULSE 77–93; RESP 17–18; TEMP 97.6–98.4; O2SAT 94–100
[2023-12-28 01:02] LABS: INR 1.33 (0.9-1.15); Prothrombin Time 13.7 sec (9.3-11.8)
[2023-12-28 01:04] LABS: Partial Thromboplastin Time 86.2 SEC (24.5-34.5)
[2023-12-28] MEDS: HEPARIN DRIP/D5W 100UNITS/ML 250 ML IV SCH ×2 (01:32→14:56)
[2023-12-28 07:38] LABS: Basophils # (auto) 0.1 10 ^3/uL (0-0.2); Basophils % (auto) 1.8 % (0.0-2.0); Eosinophils # (auto) 0.1 10 ^3/uL (0-0.8); Hematocrit 35.3 % (36.0-46.0); Lymphocytes % (auto) 15.8 % (10.0-50.0); Mean Corpuscular Hemoglobin 29.7 pg (28.0-32.0); Mean Corpuscular Volume 95.7 fL (80.0-100.0); Monocytes # (auto) 0.6 10 ^3/uL (0-1.3); Monocytes % (auto) 10.1 % (0.0-12.0); Neutrophils # (auto) 4.3 10 ^3/uL (1.6-8.6); Neutrophils % (auto) 70.3 % (37.0-80.0); Nucleated Red Blood Cells % 0.2 %; Red Blood Cells 3.69 10^6/uL (4.0-5.20); Red Cell Distribution Width 19.3 % (11.8-14.3); White Blood Cell 6.1 10^3/uL (4.4-10.8)
[2023-12-28 07:47] LABS: INR 1.42 (0.9-1.15); Partial Thromboplastin Time 51.5 SEC (24.5-34.5); Prothrombin Time 14.6 sec (9.3-11.8)
[2023-12-28 07:48] LABS: Alanine Aminotransferase 16 U/L (7-40); Albumin 2.6 g/dL (3.2-4.8); Alkaline Phosphatase 121 U/L (46-116); Anion Gap 6 (5-15); Aspartate Aminotransferase 37 U/L (13-40); BUN/Creatinine Ratio 17.8 (10.0-20.0); Bilirubin, Total 0.8 mg/dL (0.2-1.0); Blood Urea Nitrogen 19 mg/dL (9-23); Calcium 8.5 mg/dL (8.7-10.4); Carbon Dioxide 27 mmol/L (20-30); Chloride 104 mmol/L (98-107); Glucose 79 mg/dL (74-106); Magnesium 2.1 mg/dL (1.6-2.6); Potassium 4.3 mmol/L (3.5-5.1); Sodium 137 mmol/L (136-145); Total Protein 5.6 g/dL (5.7-8.2)
[2023-12-28 13:32] LABS: INR 1.48 (0.9-1.15); Partial Thromboplastin Time 44.3 SEC (24.5-34.5); Prothrombin Time 15.1 sec (9.3-11.8)
[2023-12-28] MEDS: WARFARIN SODIUM 2.5 MG TAB PO ONE (17:00)
[2023-12-28 20:46] LABS: Urine Bacteria FEW /hpf (None Seen); Urine Blood 2+ /uL (Negative); Urine Budding Yeast LOADED /hpf (None Seen); Urine Clarity Turbid (Clear); Urine Color Light-Yellow (Yellow); Urine Mucus FEW (None Seen); Urine Protein, UAD 1+ (Negative); Urine Specific Gravity 1.013 (1.001-1.035); Urine Urobilinogen Normal (Negative); Urine WBC 36 /hpf (0 - 5)
[2023-12-28 21:28] LABS: INR 1.7 (0.9-1.15); Prothrombin Time 17.2 sec (9.3-11.8)
[2023-12-29] VITALS (8 sets, daily range): BP systolic 102–143; BP diastolic 65–84; PULSE 80–95; RESP 16–18; TEMP 97.2–98.1; O2SAT 93–100
[2023-12-29 03:33] LABS: INR 1.73 (0.9-1.15); Prothrombin Time 17.5 sec (9.3-11.8)
[2023-12-29 03:41] LABS: Partial Thromboplastin Time 106.6 SEC (24.5-34.5)
[2023-12-29] MEDS ORDERED: HEPARIN DRIP/D5W 100UNITS/ML 250 ML IV SCH (04:15)
[2023-12-29] MEDS: HEPARIN DRIP/D5W 100UNITS/ML 250 ML IV SCH ×3 (05:19→23:58)
[2023-12-29 07:05] LABS: Basophils # (auto) 0.1 10 ^3/uL (0-0.2); Basophils % (auto) 1.2 % (0.0-2.0); Eosinophils # (auto) 0.1 10 ^3/uL (0-0.8); Eosinophils % (auto) 1.1 % (0.0-7.0); Hematocrit 33.3 % (36.0-46.0); Hemoglobin 10.6 g/dL (12.2-16.2); Lymphocytes # (auto) 1.1 10 ^3/uL (0.4-5.4); Lymphocytes % (auto) 17.1 % (10.0-50.0); Mean Corpuscular Hemoglobin 29.8 pg (28.0-32.0); Mean Corpuscular Hgb Conc. 31.7 g/dL (32.0-36.0); Mean Corpuscular Volume 93.8 fL (80.0-100.0); Monocytes # (auto) 0.5 10 ^3/uL (0-1.3); Monocytes % (auto) 7.8 % (0.0-12.0); Neutrophils # (auto) 4.6 10 ^3/uL (1.6-8.6); Neutrophils % (auto) 72.8 % (37.0-80.0); Nucleated Red Blood Cells % 0.2 %; Red Blood Cells 3.55 10^6/uL (4.0-5.20); Red Cell Distribution Width 19.6 % (11.8-14.3); White Blood Cell 6.4 10^3/uL (4.4-10.8)
[2023-12-29 07:23] LABS: Alanine Aminotransferase 17 U/L (7-40); Albumin 2.7 g/dL (3.2-4.8); Alkaline Phosphatase 116 U/L (46-116); Anion Gap 6 (5-15); Aspartate Aminotransferase 34 U/L (13-40); BUN/Creatinine Ratio 21.6 (10.0-20.0); Blood Urea Nitrogen 24 mg/dL (9-23); Calcium 8.8 mg/dL (8.7-10.4); Carbon Dioxide 30 mmol/L (20-30); Chloride 102 mmol/L (98-107); Glucose 75 mg/dL (74-106); Magnesium 2.1 mg/dL (1.6-2.6); Potassium 4.2 mmol/L (3.5-5.1); Sodium 138 mmol/L (136-145)
[2023-12-29 07:24] LABS: Bilirubin, Total 0.7 mg/dL (0.2-1.0); Total Protein 5.6 g/dL (5.7-8.2)
[2023-12-29 14:35] LABS: INR 1.58 (0.9-1.15); Partial Thromboplastin Time 36.2 SEC (24.5-34.5); Prothrombin Time 16.1 sec (9.3-11.8)
[2023-12-29] MEDS: WARFARIN SODIUM 5 MG TAB PO ONE (17:00)
[2023-12-29] MEDS ORDERED: WARFARIN SODIUM 2.5 MG TAB PO ONE ×2 (17:00)
[2023-12-29 23:08] LABS: INR 1.51 (0.9-1.15); Partial Thromboplastin Time 38.4 SEC (24.5-34.5); Prothrombin Time 15.4 sec (9.3-11.8)
[2023-12-30] VITALS (9 sets, daily range): BP systolic 104–129; BP diastolic 68–76; PULSE 95–100; RESP 15–20; TEMP 97.3–98.1; O2SAT 90–98
[2023-12-30 06:07] LABS: INR 1.51 (0.9-1.15); Partial Thromboplastin Time 66.6 SEC (24.5-34.5); Prothrombin Time 15.4 sec (9.3-11.8)
[2023-12-30 10:20] LABS: Alanine Aminotransferase 28 U/L (7-40); Alkaline Phosphatase 128 U/L (46-116); Anion Gap 6 (5-15); BUN/Creatinine Ratio 26.4 (10.0-20.0); Blood Urea Nitrogen 28 mg/dL (9-23); Carbon Dioxide 27 mmol/L (20-30); Chloride 102 mmol/L (98-107); Glucose 101 mg/dL (74-106); Magnesium 2.1 mg/dL (1.6-2.6); Potassium 5.1 mmol/L (3.5-5.1); Sodium 135 mmol/L (136-145)
[2023-12-30 10:21] LABS: Albumin 2.8 g/dL (3.2-4.8); Aspartate Aminotransferase 42 U/L (13-40); Bilirubin, Total 0.7 mg/dL (0.2-1.0)
[2023-12-30 10:22] LABS: Basophils # (auto) 0.1 10 ^3/uL (0-0.2); Basophils % (auto) 1.1 % (0.0-2.0); Eosinophils # (auto) 0.1 10 ^3/uL (0-0.8); Eosinophils % (auto) 0.9 % (0.0-7.0); Hematocrit 36.5 % (36.0-46.0); Hemoglobin 11.3 g/dL (12.2-16.2); Lymphocytes # (auto) 1.1 10 ^3/uL (0.4-5.4); Lymphocytes % (auto) 14.8 % (10.0-50.0); Mean Corpuscular Hemoglobin 29.4 pg (28.0-32.0); Mean Corpuscular Hgb Conc. 31.1 g/dL (32.0-36.0); Mean Corpuscular Volume 94.8 fL (80.0-100.0); Monocytes # (auto) 0.4 10 ^3/uL (0-1.3); Neutrophils # (auto) 5.7 10 ^3/uL (1.6-8.6); Neutrophils % (auto) 77.2 % (37.0-80.0); Nucleated Red Blood Cells % 0.4 %; Red Blood Cells 3.85 10^6/uL (4.0-5.20); Red Cell Distribution Width 19.9 % (11.8-14.3); Total Protein 5.9 g/dL (5.7-8.2); White Blood Cell 7.4 10^3/uL (4.4-10.8)
[2023-12-30 10:34] LABS: INR 1.48 (0.9-1.15); Prothrombin Time 15.1 sec (9.3-11.8)
[2023-12-30 10:41] LABS: Partial Thromboplastin Time 103.3 SEC (24.5-34.5)
[2023-12-30] MEDS ORDERED: ALBUTEROL SULF 2.5 MG/0.5ML(0.5%) NEB SOLN NEB PRN (11:15)
[2023-12-30] MEDS: HEPARIN DRIP/D5W 100UNITS/ML 250 ML IV SCH ×2 (11:54→20:30)
[2023-12-30] MEDS: WARFARIN SODIUM 2.5 MG TAB PO ONE (18:14)
[2023-12-30 18:46] LABS: INR 1.44 (0.9-1.15); Partial Thromboplastin Time 40.1 SEC (24.5-34.5); Prothrombin Time 14.8 sec (9.3-11.8)
[2023-12-30] MEDS: AMIODARONE HCL 200 MG TAB PO SCH (23:42)
[2023-12-31] VITALS (10 sets, daily range): BP systolic 98–131; BP diastolic 65–77; PULSE 87–101; RESP 16–20; TEMP 97.6–98.2; O2SAT 90–100
[2023-12-31 03:03] LABS: INR 1.53 (0.9-1.15); Partial Thromboplastin Time 50.8 SEC (24.5-34.5); Prothrombin Time 15.6 sec (9.3-11.8)
[2023-12-31 09:38] LABS: Basophils # (auto) 0.1 10 ^3/uL (0-0.2); Basophils % (auto) 1.4 % (0.0-2.0); Eosinophils # (auto) 0.1 10 ^3/uL (0-0.8); Eosinophils % (auto) 1.1 % (0.0-7.0); Hematocrit 40.1 % (36.0-46.0); Hemoglobin 12.5 g/dL (12.2-16.2); Lymphocytes # (auto) 1.3 10 ^3/uL (0.4-5.4); Mean Corpuscular Hemoglobin 29.7 pg (28.0-32.0); Mean Corpuscular Hgb Conc. 31.2 g/dL (32.0-36.0); Mean Corpuscular Volume 95.1 fL (80.0-100.0); Monocytes # (auto) 0.5 10 ^3/uL (0-1.3); Monocytes % (auto) 6.6 % (0.0-12.0); Neutrophils # (auto) 5.9 10 ^3/uL (1.6-8.6); Neutrophils % (auto) 73.9 % (37.0-80.0); Nucleated Red Blood Cells % 0.2 %; Red Blood Cells 4.21 10^6/uL (4.0-5.20); Red Cell Distribution Width 19.5 % (11.8-14.3); White Blood Cell 7.9 10^3/uL (4.4-10.8)
[2023-12-31 09:55] LABS: Alanine Aminotransferase 25 U/L (7-40); Albumin 3.2 g/dL (3.2-4.8); Alkaline Phosphatase 137 U/L (46-116); Anion Gap 8 (5-15); Aspartate Aminotransferase 63 U/L (13-40); BUN/Creatinine Ratio 27.4 (10.0-20.0); Bilirubin, Total 0.9 mg/dL (0.2-1.0); Blood Urea Nitrogen 29 mg/dL (9-23); Carbon Dioxide 29 mmol/L (20-30); Chloride 99 mmol/L (98-107); Glucose 74 mg/dL (74-106); Potassium 5.4 mmol/L (3.5-5.1); Sodium 136 mmol/L (136-145); Total Protein 6.7 g/dL (5.7-8.2)
[2023-12-31 10:28] LABS: Magnesium 2.3 mg/dL (1.6-2.6)
[2023-12-31 10:39] LABS: INR 1.67 (0.9-1.15); Partial Thromboplastin Time 57.2 SEC (24.5-34.5)
[2023-12-31] MEDS ORDERED: ENOXAPARIN SOD 100 MG/1 ML SYRINGE SC ONE (13:15)
[2023-12-31 14:06] LABS: Anticardiolipin IgG Antibody <9 GPL U/mL (0-14)
[2023-12-31] MEDS: ENOXAPARIN SOD 80 MG/0.8ML SYRINGE SC ONE (15:23)
[2023-12-31] MEDS ORDERED: WARFARIN SODIUM 2.5 MG TAB PO ONE (17:00)
[2023-12-31] MEDS: WARFARIN SODIUM 5 MG TAB PO ONE (17:41)
[2023-12-31] MEDS ORDERED: ENOXAPARIN SOD 100 MG/1 ML SYRINGE SC SCH (22:00)
[2023-12-31] MEDS: ENOXAPARIN SOD 80 MG/0.8ML SYRINGE SC SCH (22:07)
[2024-01-01] VITALS (8 sets, daily range): BP systolic 93–108; BP diastolic 60–73; PULSE 86–98; RESP 17–19; TEMP 97.4–97.9; O2SAT 95–100
[2024-01-01 06:28] LABS: Basophils # (auto) 0.1 10 ^3/uL (0-0.2); Basophils % (auto) 1.4 % (0.0-2.0); Eosinophils # (auto) 0 10 ^3/uL (0-0.8); Eosinophils % (auto) 0.7 % (0.0-7.0); Hematocrit 33.6 % (36.0-46.0); Hemoglobin 10.6 g/dL (12.2-16.2); Lymphocytes # (auto) 1.1 10 ^3/uL (0.4-5.4); Lymphocytes % (auto) 17.2 % (10.0-50.0); Mean Corpuscular Hemoglobin 29.7 pg (28.0-32.0); Mean Corpuscular Hgb Conc. 31.5 g/dL (32.0-36.0); Mean Corpuscular Volume 94.5 fL (80.0-100.0); Monocytes # (auto) 0.4 10 ^3/uL (0-1.3); Monocytes % (auto) 6.1 % (0.0-12.0); Neutrophils # (auto) 4.8 10 ^3/uL (1.6-8.6); Neutrophils % (auto) 74.6 % (37.0-80.0); Nucleated Red Blood Cells % 0.3 %; Red Blood Cells 3.56 10^6/uL (4.0-5.20); Red Cell Distribution Width 19.4 % (11.8-14.3); White Blood Cell 6.4 10^3/uL (4.4-10.8)
[2024-01-01 06:29] LABS: Chloride 101 mmol/L (98-107); Sodium 136 mmol/L (136-145)
[2024-01-01 06:30] LABS: Anion Gap 8 (5-15); Calcium 8.9 mg/dL (8.5-10.1); Carbon Dioxide 27 mmol/L (20-30)
[2024-01-01 06:35] LABS: BUN/Creatinine Ratio 22.9 (10.0-20.0); Blood Urea Nitrogen 25 mg/dL (9-23); Glucose 79 mg/dL (74-106)
[2024-01-01 06:36] LABS: INR 3.88 (0.9-1.15); Partial Thromboplastin Time 45.1 SEC (24.5-34.5); Prothrombin Time 37.3 sec (9.3-11.8)
[2024-01-01 23:06] LABS: Protein C Antigen 41 % (60-150)
[2024-01-02] VITALS (10 sets, daily range): BP systolic 98–108; BP diastolic 57–85; PULSE 86–97; RESP 14–20; TEMP 96.5–97.8; O2SAT 93–99
[2024-01-02 06:29] LABS: Basophils # (auto) 0.1 10 ^3/uL (0-0.2); Basophils % (auto) 1.4 % (0.0-2.0); Eosinophils # (auto) 0 10 ^3/uL (0-0.8); Eosinophils % (auto) 0.4 % (0.0-7.0); Hematocrit 32.8 % (36.0-46.0); Hemoglobin 10.2 g/dL (12.2-16.2); Lymphocytes # (auto) 0.9 10 ^3/uL (0.4-5.4); Lymphocytes % (auto) 16.8 % (10.0-50.0); Mean Corpuscular Hemoglobin 29.1 pg (28.0-32.0); Mean Corpuscular Hgb Conc. 31.2 g/dL (32.0-36.0); Mean Corpuscular Volume 93.4 fL (80.0-100.0); Monocytes # (auto) 0.2 10 ^3/uL (0-1.3); Monocytes % (auto) 4.4 % (0.0-12.0); Neutrophils # (auto) 4.2 10 ^3/uL (1.6-8.6); Nucleated Red Blood Cells % 0.3 %; Red Blood Cells 3.51 10^6/uL (4.0-5.20); Red Cell Distribution Width 18.9 % (11.8-14.3); White Blood Cell 5.4 10^3/uL (4.4-10.8)
[2024-01-02 06:37] LABS: Partial Thromboplastin Time 35.7 SEC (24.5-34.5); Prothrombin Time 44.4 sec (9.3-11.8)
[2024-01-02 06:43] LABS: Alanine Aminotransferase 17 U/L (7-40); Albumin 3.1 g/dL (3.2-4.8); Alkaline Phosphatase 114 U/L (46-116); Anion Gap 9 (5-15); Aspartate Aminotransferase 37 U/L (13-40); BUN/Creatinine Ratio 24.6 (10.0-20.0); Blood Urea Nitrogen 31 mg/dL (9-23); Calcium 9.3 mg/dL (8.7-10.4); Carbon Dioxide 25 mmol/L (20-30); Chloride 101 mmol/L (98-107); Glucose 86 mg/dL (74-106); Magnesium 2.5 mg/dL (1.6-2.6); Potassium 5.3 mmol/L (3.5-5.1); Sodium 135 mmol/L (136-145)
[2024-01-02 06:44] LABS: Bilirubin, Total 0.7 mg/dL (0.2-1.0); Total Protein 6.2 g/dL (5.7-8.2)
[2024-01-02 06:52] LABS: INR 4.7 (0.9-1.15)
[2024-01-02] MEDS: phytonadione 2.5 MG in SODIUM CHL 0.9% 50 ML IV ONE (09:30)
[2024-01-02 09:34] LABS: Creatinine, Urine 113.28 mg/dL (30.0-125.0)
[2024-01-02 10:41] LABS: Lactic Acid w/Reflex 2.3 mmol/L (0.4-2.0)
[2024-01-02 15:32] LABS: INR 3.23 (0.9-1.15); Partial Thromboplastin Time 34.1 SEC (24.5-34.5); Prothrombin Time 31.4 sec (9.3-11.8)
[2024-01-02 20:06] LABS: Antithrombin III Antigen 99 % (72-124); Dilute Prothrombin Time(dPT) 54.9 sec (0.0-47.6); PTT-LA 54.1 sec (0.0-43.5); PTT-LA Mix 47.8 sec (0.0-40.5); Protein S Antigen Free 82 % (61-136); Protein S-Functional 62 % (63-140); Proten S Antigen Total 84 % (60-150); Thrombin Time 18.9 sec (0.0-23.0); dPT Confirm Ratio 1.02 Ratio (0.00-1.34); dRVVT 48.4 sec (0.0-47.0)
[2024-01-02 21:06] LABS: Hexagonal Phase Phospholipid 2 sec (0-11)
[2024-01-02 23:07] LABS: Lupus Interpretation Comment: (.)
[2024-01-03] VITALS (11 sets, daily range): BP systolic 84–106; BP diastolic 60–73; PULSE 85–96; RESP 16–22; TEMP 96.7–98.9; O2SAT 91–100
[2024-01-03 09:02] LABS: Basophils # (auto) 0.1 10 ^3/uL (0-0.2); Basophils % (auto) 1.6 % (0.0-2.0); Eosinophils # (auto) 0 10 ^3/uL (0-0.8); Eosinophils % (auto) 0.5 % (0.0-7.0); Hematocrit 31.5 % (36.0-46.0); Hemoglobin 9.9 g/dL (12.2-16.2); Lymphocytes # (auto) 0.8 10 ^3/uL (0.4-5.4); Lymphocytes % (auto) 15.5 % (10.0-50.0); Mean Corpuscular Hemoglobin 29.9 pg (28.0-32.0); Mean Corpuscular Hgb Conc. 31.4 g/dL (32.0-36.0); Mean Corpuscular Volume 95.4 fL (80.0-100.0); Monocytes # (auto) 0.3 10 ^3/uL (0-1.3); Monocytes % (auto) 4.9 % (0.0-12.0); Neutrophils # (auto) 4.2 10 ^3/uL (1.6-8.6); Neutrophils % (auto) 77.5 % (37.0-80.0); Nucleated Red Blood Cells % 0.7 %; Red Blood Cells 3.31 10^6/uL (4.0-5.20); Red Cell Distribution Width 19.1 % (11.8-14.3); White Blood Cell 5.4 10^3/uL (4.4-10.8)
[2024-01-03 09:32] LABS: INR 1.7 (0.9-1.15); Partial Thromboplastin Time 31.6 SEC (24.5-34.5); Prothrombin Time 17.3 sec (9.3-11.8)
[2024-01-03] MEDS: rifAXIMin 550 MG TAB PO SCH (10:00)
[2024-01-03 11:06] LABS: Chloride 102 mmol/L (98-107); Potassium 5.2 mmol/L (3.5-5.1); Sodium 136 mmol/L (136-145)
[2024-01-03 11:08] LABS: Anion Gap 9 (5-15); Carbon Dioxide 25 mmol/L (20-30)
[2024-01-03 11:09] LABS: Calcium 9.4 mg/dL (8.7-10.4)
[2024-01-03 11:13] LABS: Glucose 78 mg/dL (74-106)
[2024-01-03 11:14] LABS: Alkaline Phosphatase 117 U/L (46-116); BUN/Creatinine Ratio 20.5 (10.0-20.0); Blood Urea Nitrogen 32 mg/dL (9-23); Magnesium 2.5 mg/dL (1.6-2.6)
[2024-01-03 11:15] LABS: Alanine Aminotransferase 16 U/L (7-40); Aspartate Aminotransferase 36 U/L (13-40)
[2024-01-03 11:16] LABS: Bilirubin, Total 0.8 mg/dL (0.2-1.0); Total Protein 6.4 g/dL (5.7-8.2)
[2024-01-03] MEDS: WARFARIN SODIUM 5 MG TAB PO ONE (17:00)
[2024-01-04] VITALS (9 sets, daily range): BP systolic 108–133; BP diastolic 32–80; PULSE 82–92; RESP 16–24; TEMP 96.4–98.7; O2SAT 89–94
[2024-01-04 05:37] LABS: Basophils # (auto) 0.1 10 ^3/uL (0-0.2); Basophils % (auto) 1.1 % (0.0-2.0); Eosinophils # (auto) 0.1 10 ^3/uL (0-0.8); Hemoglobin 10.6 g/dL (12.2-16.2); White Blood Cell 5.7 10^3/uL (4.4-10.8)
[2024-01-04 05:40] LABS: Eosinophils % (auto) 1.2 % (0.0-7.0); Lymphocytes # (auto) 1.2 10 ^3/uL (0.4-5.4); Lymphocytes % (auto) 20.5 % (10.0-50.0); Mean Corpuscular Hemoglobin 29.5 pg (28.0-32.0); Mean Corpuscular Hgb Conc. 31.3 g/dL (32.0-36.0); Mean Corpuscular Volume 94.5 fL (80.0-100.0); Monocytes # (auto) 0.4 10 ^3/uL (0-1.3); Monocytes % (auto) 6.1 % (0.0-12.0); Neutrophils # (auto) 4.1 10 ^3/uL (1.6-8.6); Neutrophils % (auto) 71.1 % (37.0-80.0); Nucleated Red Blood Cells % 0.8 %; Red Cell Distribution Width 19.2 % (11.8-14.3)
[2024-01-04 05:52] LABS: INR 2.29 (0.9-1.15); Partial Thromboplastin Time 34.6 SEC (24.5-34.5); Prothrombin Time 22.8 sec (9.3-11.8)
[2024-01-04 05:56] LABS: Albumin 3.4 g/dL (3.2-4.8); Alkaline Phosphatase 132 U/L (46-116); Anion Gap 10 (5-15); Aspartate Aminotransferase 40 U/L (13-40); BUN/Creatinine Ratio 22.2 (10.0-20.0); Blood Urea Nitrogen 38 mg/dL (9-23); Calcium 9.5 mg/dL (8.7-10.4); Carbon Dioxide 25 mmol/L (20-30); Chloride 102 mmol/L (98-107); Glucose 70 mg/dL (74-106); Magnesium 2.8 mg/dL (1.6-2.6); Potassium 5.4 mmol/L (3.5-5.1); Sodium 137 mmol/L (136-145)
[2024-01-04 05:57] LABS: Bilirubin, Total 0.9 mg/dL (0.2-1.0); Total Protein 6.8 g/dL (5.7-8.2)
[2024-01-04 07:00] LABS: Alanine Aminotransferase 19 U/L (7-40)
[2024-01-04] MEDS: WARFARIN SODIUM 5 MG TAB GT ONE (17:00)
[2024-01-05] VITALS (11 sets, daily range): BP systolic 90–128; BP diastolic 50–77; PULSE 56–90; RESP 16–20; TEMP 36.5; O2SAT 90–98
[2024-01-05 06:56] LABS: Basophils # (auto) 0.1 10 ^3/uL (0-0.2); Basophils % (auto) 2.1 % (0.0-2.0); Chloride 101 mmol/L (98-107); Eosinophils # (auto) 0 10 ^3/uL (0-0.8); Eosinophils % (auto) 0.8 % (0.0-7.0); Hematocrit 35.1 % (36.0-46.0); Hemoglobin 10.9 g/dL (12.2-16.2); Lymphocytes % (auto) 16.8 % (10.0-50.0); Mean Corpuscular Hemoglobin 29.8 pg (28.0-32.0); Mean Corpuscular Volume 96.1 fL (80.0-100.0); Monocytes # (auto) 0.3 10 ^3/uL (0-1.3); Monocytes % (auto) 5.3 % (0.0-12.0); Neutrophils # (auto) 4.4 10 ^3/uL (1.6-8.6); Nucleated Red Blood Cells % 0.8 %; Potassium 4.6 mmol/L (3.5-5.1); Red Blood Cells 3.65 10^6/uL (4.0-5.20); Red Cell Distribution Width 18.9 % (11.8-14.3); Sodium 136 mmol/L (136-145); White Blood Cell 5.8 10^3/uL (4.4-10.8)
[2024-01-05 06:57] LABS: Anion Gap 11 (5-15); Calcium 9.4 mg/dL (8.7-10.4); Carbon Dioxide 24 mmol/L (20-30)
[2024-01-05 07:02] LABS: BUN/Creatinine Ratio 22.8 (10.0-20.0); Blood Urea Nitrogen 37 mg/dL (9-23); Glucose 113 mg/dL (74-106)
[2024-01-05 07:03] LABS: Magnesium 2.7 mg/dL (1.6-2.6)
[2024-01-05 07:26] LABS: Partial Thromboplastin Time 44.1 SEC (24.5-34.5); Prothrombin Time 38.3 sec (9.3-11.8)
[2024-01-06] VITALS (8 sets, daily range): BP systolic 92–116; BP diastolic 64–70; PULSE 80–92; RESP 16–28; TEMP 97.7–98; O2SAT 92–98
[2024-01-06 06:55] LABS: Alanine Aminotransferase 18 U/L (7-40); Albumin 3.4 g/dL (3.2-4.8); Alkaline Phosphatase 146 U/L (46-116); Anion Gap 8 (5-15); Aspartate Aminotransferase 46 U/L (13-40); Calcium 9.3 mg/dL (8.5-10.1); Carbon Dioxide 27 mmol/L (20-30); Chloride 101 mmol/L (98-107); Glucose 74 mg/dL (74-106); Sodium 136 mmol/L (136-145)
[2024-01-06 06:56] LABS: Bilirubin, Total 0.9 mg/dL (0.2-1.0)
[2024-01-06 07:12] LABS: Blood Urea Nitrogen 47 mg/dL (9-23)
[2024-01-06 07:33] LABS: Hematocrit 34.1 % (36.0-46.0); Hemoglobin 10.5 g/dL (12.2-16.2); Mean Corpuscular Hemoglobin 28.9 pg (28.0-32.0); Mean Corpuscular Hgb Conc. 30.8 g/dL (32.0-36.0); Mean Corpuscular Volume 93.9 fL (80.0-100.0); Red Blood Cells 3.63 10^6/uL (4.0-5.20); Red Cell Distribution Width 18.7 % (11.8-14.3)
[2024-01-06 07:37] LABS: Basophils % (manual) 0 (0.0-2.0); Blast Cells 0; Eosinophils % (manual) 0 (0-7); Metamyelocytes % 0; Myelocytes % 0; Promyelocytes % 0; Reactive Lymphocytes 0
[2024-01-06 08:06] LABS: Band Neutrophils % (manual) 3; Lymphocytes % (manual) 24 (10.0-50.0); Monocytes % (manual) 1 (0-12); Platelet Estimate Adequate
[2024-01-06 08:44] LABS: Partial Thromboplastin Time 49.8 SEC (24.5-34.5)
[2024-01-06 08:50] LABS: INR > 8.0 (0.9-1.15)
[2024-01-06] MEDS: phytonadione 2.5 MG in SODIUM CHL 0.9% 50 ML IV ONE ×2 (11:42→21:43)
[2024-01-06] MEDS: LORazepam 2MG/ML-1ML VIAL IV PRN (13:56)
[2024-01-06 16:40] LABS: Prothrombin Time 40.6 sec (9.3-11.8)
[2024-01-06 16:58] LABS: INR 4.26 (0.9-1.15)
[2024-01-07] VITALS (10 sets, daily range): BP systolic 90–116; BP diastolic 62–85; PULSE 58–85; RESP 16–18; TEMP 96.4–98.1; O2SAT 92–100
[2024-01-07 06:38] LABS: Alanine Aminotransferase 20 U/L (7-40); Albumin 3.1 g/dL (3.2-4.8); Alkaline Phosphatase 148 U/L (46-116); Anion Gap 9 (5-15); Aspartate Aminotransferase 34 U/L (13-40); BUN/Creatinine Ratio 25.3 (10.0-20.0); Blood Urea Nitrogen 49 mg/dL (9-23); Calcium 9.2 mg/dL (8.7-10.4); Carbon Dioxide 25 mmol/L (20-30); Chloride 102 mmol/L (98-107); Glucose 94 mg/dL (74-106); Magnesium 2.9 mg/dL (1.6-2.6); Potassium 5.4 mmol/L (3.5-5.1); Sodium 136 mmol/L (136-145)
[2024-01-07 06:39] LABS: Bilirubin, Total 0.8 mg/dL (0.2-1.0); INR 1.91 (0.9-1.15); Prothrombin Time 19.3 sec (9.3-11.8); Total Protein 6.5 g/dL (5.7-8.2)
[2024-01-07 07:22] LABS: Basophils # (auto) 0.1 10 ^3/uL (0-0.2); Eosinophils # (auto) 0 10 ^3/uL (0-0.8); Hemoglobin 10.1 g/dL (12.2-16.2); Monocytes # (auto) 0.3 10 ^3/uL (0-1.3)
[2024-01-07 07:24] LABS: Basophils % (auto) 1.4 % (0.0-2.0); Eosinophils % (auto) 0.7 % (0.0-7.0); Hematocrit 32.7 % (36.0-46.0); Lymphocytes # (auto) 0.9 10 ^3/uL (0.4-5.4); Lymphocytes % (auto) 18.1 % (10.0-50.0); Mean Corpuscular Hemoglobin 29.4 pg (28.0-32.0); Monocytes % (auto) 6.7 % (0.0-12.0); Neutrophils # (auto) 3.6 10 ^3/uL (1.6-8.6); Neutrophils % (auto) 73.1 % (37.0-80.0); Nucleated Red Blood Cells % 2.3 %; Red Blood Cells 3.44 10^6/uL (4.0-5.20); Red Cell Distribution Width 19.1 % (11.8-14.3)
[2024-01-07] MEDS: FUROSEMIDE 20 MG/2 ML VIAL IV ONE (08:17)
[2024-01-07 08:40] LABS: Platelet Estimate Adequate
[2024-01-07] MEDS: FUROSEMIDE 40 MG TAB PO SCH (10:31)
[2024-01-07] MEDS: WARFARIN SODIUM 2.5 MG TAB PO ONE (18:26)
[2024-01-08] VITALS (11 sets, daily range): BP systolic 89–143; BP diastolic 45–80; PULSE 41–110; RESP 16–23; TEMP 97–98.5; O2SAT 90–100
[2024-01-08 07:15] LABS: INR 1.85 (0.9-1.15); Prothrombin Time 18.7 sec (9.3-11.8)
[2024-01-08 09:27] LABS: Basophils # (auto) 0.1 10 ^3/uL (0-0.2); Eosinophils # (auto) 0.1 10 ^3/uL (0-0.8); Hematocrit 35.7 % (36.0-46.0); Hemoglobin 10.8 g/dL (12.2-16.2); Mean Corpuscular Hgb Conc. 30.3 g/dL (32.0-36.0); Neutrophils # (auto) 6.1 10 ^3/uL (1.6-8.6)
[2024-01-08 09:34] LABS: Basophils % (auto) 1.3 % (0.0-2.0); Eosinophils % (auto) 0.7 % (0.0-7.0); Lymphocytes # (auto) 0.9 10 ^3/uL (0.4-5.4); Lymphocytes % (auto) 11.1 % (10.0-50.0); Mean Corpuscular Volume 98.8 fL (80.0-100.0); Monocytes # (auto) 0.6 10 ^3/uL (0-1.3); Monocytes % (auto) 8.1 % (0.0-12.0); Neutrophils % (auto) 78.8 % (37.0-80.0); Nucleated Red Blood Cells % 0.9 %; Red Blood Cells 3.61 10^6/uL (4.0-5.20); White Blood Cell 7.8 10^3/uL (4.4-10.8)
[2024-01-08 11:58] LABS: Alanine Aminotransferase 21 U/L (7-40); Albumin 3.2 g/dL (3.2-4.8); Alkaline Phosphatase 151 U/L (46-116); Anion Gap 8 (5-15); Aspartate Aminotransferase 37 U/L (13-40); BUN/Creatinine Ratio 23.6 (10.0-20.0); Bilirubin, Total 0.9 mg/dL (0.2-1.0); Blood Urea Nitrogen 48 mg/dL (9-23); Calcium 9.4 mg/dL (8.7-10.4); Carbon Dioxide 27 mmol/L (20-30); Chloride 101 mmol/L (98-107); Glucose 104 mg/dL (74-106); Magnesium 2.7 mg/dL (1.6-2.6); Potassium 5.4 mmol/L (3.5-5.1); Sodium 136 mmol/L (136-145); Total Protein 6.6 g/dL (5.7-8.2)
[2024-01-08] MEDS: WARFARIN SODIUM 2 MG TAB PO ONE (19:04)
[2024-01-09] VITALS (7 sets, daily range): BP systolic 91–119; BP diastolic 57–70; PULSE 83–89; RESP 14–18; TEMP 97–98; O2SAT 93–95
[2024-01-09 06:34] LABS: INR 2.14 (0.9-1.15); Partial Thromboplastin Time 34.7 SEC (24.5-34.5); Prothrombin Time 21.4 sec (9.3-11.8)
[2024-01-09 06:37] LABS: Basophils # (auto) 0.1 10 ^3/uL (0-0.2); Eosinophils # (auto) 0 10 ^3/uL (0-0.8); Eosinophils % (auto) 0.2 % (0.0-7.0); Hemoglobin 10.1 g/dL (12.2-16.2)
[2024-01-09 06:39] LABS: Basophils % (auto) 0.8 % (0.0-2.0); Hematocrit 33.1 % (36.0-46.0); Lymphocytes # (auto) 0.8 10 ^3/uL (0.4-5.4); Lymphocytes % (auto) 5.9 % (10.0-50.0); Mean Corpuscular Hemoglobin 29.3 pg (28.0-32.0); Mean Corpuscular Hgb Conc. 30.6 g/dL (32.0-36.0); Monocytes # (auto) 0.7 10 ^3/uL (0-1.3); Monocytes % (auto) 5.2 % (0.0-12.0); Neutrophils # (auto) 12.1 10 ^3/uL (1.6-8.6); Neutrophils % (auto) 87.9 % (37.0-80.0); Nucleated Red Blood Cells % 0.5 %; Red Blood Cells 3.45 10^6/uL (4.0-5.20); Red Cell Distribution Width 19.5 % (11.8-14.3); White Blood Cell 13.7 10^3/uL (4.4-10.8)
[2024-01-09 06:45] LABS: Alanine Aminotransferase 24 U/L (7-40); Alkaline Phosphatase 155 U/L (46-116); Anion Gap 14 (5-15); BUN/Creatinine Ratio 20.8 (10.0-20.0); Blood Urea Nitrogen 45 mg/dL (9-23); Calcium 9.2 mg/dL (8.7-10.4); Carbon Dioxide 20 mmol/L (20-30); Chloride 101 mmol/L (98-107); Glucose 67 mg/dL (74-106); Magnesium 2.8 mg/dL (1.6-2.6); Sodium 135 mmol/L (136-145)
[2024-01-09 06:46] LABS: Albumin 3.1 g/dL (3.2-4.8); Aspartate Aminotransferase 52 U/L (13-40)
[2024-01-09 06:47] LABS: Bilirubin, Total 0.9 mg/dL (0.2-1.0); Total Protein 6.5 g/dL (5.7-8.2)
[2024-01-09 06:49] LABS: Potassium 5.6 mmol/L (3.5-5.1)
[2024-01-09] MEDS: FUROSEMIDE 40 MG/4 ML VIAL IV ONE (07:15)
[2024-01-09] MEDS: DEXTROSE (50%) 50ML SYRG IV PRN (09:11)
[2024-01-09] MEDS: ALBUTEROL SULF 2.5 MG/0.5ML(0.5%) NEB SOLN NEB ONE (10:04)
[2024-01-09] MEDS: DEXTROSE (50%) 50ML SYRG IV ONE (10:14)
[2024-01-09] MEDS: SODIUM BICARB 8.4% 50Meq/50ml SYR INJ IV ONE (10:14)
[2024-01-09] MEDS: SODIUM ZIRCONIUM CYCL 10 GM PAK PO ONE (10:15)
[2024-01-09] MEDS: FUROSEMIDE 20 MG/2 ML VIAL IV ONE (10:15)
[2024-01-09] MEDS: InsuLIN REG 1unit/0.01ml Soln (100units/ml) IV ONE (10:18)
[2024-01-09] MEDS: WARFARIN SODIUM 1 MG TAB PO ONE (18:18)
[2024-01-09 19:40] LABS: Urine Bacteria None Seen /hpf (None Seen)
[2024-01-09 19:54] LABS: Urine Blood TRACE /uL (Negative); Urine Clarity Clear (Clear); Urine Color Yellow (Yellow); Urine Hyaline Cast FEW /lpf (0 - 2); Urine Protein, UAD 2+ (Negative); Urine Specific Gravity 1.015 (1.001-1.035); Urine Urobilinogen Normal (Negative); Urine WBC 1 /hpf (0 - 5)
== END 2024-01-09 22:30 | disposition hospice, inpatient (51) | DRG 45 ==
LOC: ER 16:28 → EDBD 16:28 → TELE 23:13 → TELE-CENTR 23:13 → TELE-EAST 12-16 13:42
PROVIDERS: ADMIT Internal Medicine Pulmonary Disease; ATTEND Internal Medicine Pulmonary Disease
PROC: 05HY33Z Insertion of Infusion Device into Upper Vein, Percutaneous Approach (ICD-10-PCS; 2023-12-14)
PROC: 0JH63XZ Insertion of Tunneled Vascular Access Device into Chest Subcutaneous Tissue and Fascia, Percutaneous Approach (ICD-10-PCS; principal; 2023-12-26)
PROC: 02HV33Z Insertion of Infusion Device into Superior Vena Cava, Percutaneous Approach (ICD-10-PCS; 2023-12-26)
PROC: B518ZZA Fluoroscopy of Superior Vena Cava, Guidance (ICD-10-PCS; 2023-12-26)
PROC: B548ZZA Ultrasonography of Superior Vena Cava, Guidance (ICD-10-PCS; 2023-12-26)
DX: I63.9 Cerebral infarction, unspecified (principal); N17.0 Acute kidney failure with tubular necrosis; J96.00 Acute respiratory failure, unspecified whether with hypoxia or hypercapnia; A41.9 Sepsis, unspecified organism; G93.41 Metabolic encephalopathy; I50.23 Acute on chronic systolic (congestive) heart failure; E72.20 Disorder of urea cycle metabolism, unspecified; L89.153 Pressure ulcer of sacral region, stage 3; J15.69 Pneumonia due to other Gram-negative bacteria; D68.9 Coagulation defect, unspecified; E11.649 Type 2 diabetes mellitus with hypoglycemia without coma; I42.8 Other cardiomyopathies; I21.A1 Myocardial infarction type 2; E88.09 Other disorders of plasma-protein metabolism, not elsewhere classified; K76.82 Hepatic encephalopathy; N39.0 Urinary tract infection, site not specified; K74.60 Unspecified cirrhosis of liver; R18.8 Other ascites; R74.01 Elevation of levels of liver transaminase levels; E11.22 Type 2 diabetes mellitus with diabetic chronic kidney disease; I37.1 Nonrheumatic pulmonary valve insufficiency; I82.411 Acute embolism and thrombosis of right femoral vein; I51.3 Intracardiac thrombosis, not elsewhere classified; I13.0 Hypertensive heart and chronic kidney disease with heart failure and stage 1 through stage 4 chronic kidney disease, or unspecified chronic kidney disease; I44.7 Left bundle-branch block, unspecified; I47.20 Ventricular tachycardia, unspecified; N18.9 Chronic kidney disease, unspecified; F32.A Depression, unspecified; F41.9 Anxiety disorder, unspecified; I82.C13 Acute embolism and thrombosis of internal jugular vein, bilateral; J15.9 Unspecified bacterial pneumonia; Z53.20 Procedure and treatment not carried out because of patient's decision for unspecified reasons; F15.10 Other stimulant abuse, uncomplicated; G93.89 Other specified disorders of brain; Z51.5 Encounter for palliative care; Z88.0 Allergy status to penicillin; Z74.01 Bed confinement status; Z79.899 Other long term (current) drug therapy; Z79.1 Long term (current) use of non-steroidal anti-inflammatories (NSAID); Z79.82 Long term (current) use of aspirin; Z99.81 Dependence on supplemental oxygen; Z82.49 Family history of ischemic heart disease and other diseases of the circulatory system; Z83.3 Family history of diabetes mellitus; Z86.711 Personal history of pulmonary embolism; Z79.01 Long term (current) use of anticoagulants; Z91.199 Patient's noncompliance with other medical treatment and regimen due to unspecified reason; D63.1 Anemia in chronic kidney disease
CPT/HCPCS: 36415; 36558; 70450; 70551; 71045; 71250; 74176; 76604; 76705; 76937; 77001; 80048; 80053; 80307; 81001; 81241; 82140; 82270; 82550; 82570; 82728; 82947; 82962; 83605; 83735; 83880; 83930; 83935; 84100; 84132; 84133; 84300; 84439; 84443; 84481; 84484; 84702; 85007; 85025; 85027; 85048; 85301; 85302; 85305; 85306; 85379; 85610; 85613; 85670; 85705; 85730; 85732; 86038; 86704; 86706; 86708; 86803; 87040; 87045; 87081; 87340; 87427; 92610; 93005; 93970; 96361; 96365; 96375; 99152; C1894; G0378; J1815; J2405; J3430; J3490